=== PATIENT | female | born 1965 | race Two or more races ===

== ENCOUNTER 2019-11-29 13:34 | Inpatient (IN) | payer MEDICAID ==
[~2019-11-29] VITALS: Ht 154.9 cm; Wt 70.3 kg
--- NOTE | 2019-11-29 13:34 | NUR ---
ED Nurse Note: Patient brought into ED from home by ambulance RA 27 c/o feeling sick and generalized bodyaches for 2 weeks. patient reports she has been seen at [facility] and got discharged, but the pain is getting worse. patient is alert awake x4 ambulatory, breathing unlabored and even, speaking in full sentences.
[2019-11-29 13:40] VITALS: BP 157/66
--- NOTE | 2019-11-29 13:55 | NUR ---
ED Nurse Note: Xray at bedside.
--- NOTE | 2019-11-29 14:13 | Emergency Room Report ---
History of Present Illness General Chief Complaint: Pain Source: Patient, EMS (Slim Oneill MD) Present Illness HPI Disclaimer: Please note that this report is being documented using [employer] technology. This can lead to erroneous entry secondary to incorrect interpretation by the dictating instrument. HPI: 54-year-old female with history of hypertension hyperlipidemia presenting for evaluation of body wide pain and fatigue. Symptoms present approximately 2 weeks. She states that originally she was complaining of a pain in the right shoulder which spread to her back wrapped around her chest and then descended now into her lower abdomen and pelvis. This is been ongoing for approximately 2 weeks and appears to be migratory. She denies any nausea or vomiting fever or chills. She currently denies any chest pain or shortness of breath. She states she was admitted to [facility] last week with a discharge diagnosis of "chest pain." She presents today complaining of worsening body wide pain and fatigue. Denies any vomiting or diarrhea. She does note some burning sensation with urination and increased urination. Denies hematuria. PMH: Hypertension, hyperlipidemia PSH: Reviewed Allergies: Reviewed Social Hx: Reviewed, current smoker (Slim Oneill MD) Allergies: Coded Allergies: No Known Allergies (Unverified , 11/29/19) Patient History Now: No (Slim Oneill MD) Nursing Documentation-[facility] Past Medical History: No History, Except For Hx Hypertension: Yes (Slim Oneill MD) Review of Systems All Other Systems: negative except mentioned in HPI (Slim Oneill MD) Physical Exam Vital Signs Date Time Temp Pulse Resp B/P (MAP) Pulse Ox O2 Delivery O2 Flow Rate FiO2 11/29/19 13:23 98.6 88 16 154/90 (111) 99 Room Air General: Awake and alert, no acute distress HEENT: NC/AT. EOMI. Cardiovascular: RRR. S1 and S2 normal. No murmur appreciated Resp: Normal work of breathing. No cough, wheezing or crackles appreciated Abdomen: Abdomen is soft, nondistended. Tenderness palpation in the right lower quadrant, left lower quadrant and suprapubic region. Pain is more intense on the left side. There are no masses and no rebound. Notes significant tenderness in the upper abdomen. Skin: Intact. No abrasions, laceration or rash over the exposed skin MSK: Normal tone and bulk. Moving all extremities. No obvious deformity. Neuro: Awake and alert. Mentating appropriately. (Slim Oneill MD) Medical Decision Making Diagnostic Impression: Primary Impression: Abdominal pain Qualified Codes: R10.9 - Unspecified abdominal pain Additional Impression: Metastasis Qualified Codes: C79.9 - Secondary malignant neoplasm of unspecified site ER Course This is a 54-year-old female presenting for evaluation of generalized body aches and pains now localized in the abdomen progressing over the past 2 weeks. Differential includes but not limited to viral syndrome, rhabdomyolysis, atypical chest pain, gastritis, gastroenteritis, pancreatitis, cholecystitis, appendicitis, diverticulitis, urinary tract infection, pyelonephritis, abdominal abscess, mesenteric adenitis, ovarian pathology to name a few. She arrives stable vital signs and is afebrile. She has lower abdominal pain which may represent a urinary tract infection or diverticulitis. Will obtain a CT scan and broad labs. Will give IV fluids and analgesia. Patient be signed out to oncoming physician pending completion of work-up and reevaluation for ultimate disposition. (Slim Oneill MD) ER Course Hospital Course 54-year-old female presents with generalized pain. Abdominal pain for weeks Clinical course Patient seen and evaluated by Dr. Oneill. Please see his note for full history and physical Labs - no leukocytosis, Hb/Hct stable, LFTs elevated, UA negative CT abdomen and pelvis -evidence of a disseminated malignancy with multiple liver lesions. Lesion to right fifth rib. Lesion in the lungs. Large left lobe liver lesion possible complex cyst or liver abscess. I discussed findings with patient and family. Given antibiotics. Dr Pena consulted Case discussed with and he agreed to accept the patient to his service for further care and support I feel this is a highly complex case requiring extensive working including EKG/ Rhythm strip, Xray/CT/US, Blood/urine lab work, repeat exams while in ED, and administration of strong opiates/narcotics for pain control, admission to hospital or close patient follow up. Diagnosis - abdominal pain, metastasis Patient admitted to floor in serious condition Labs Test 11/29/19 13:45 11/29/19 14:34 White Blood Count 9.8 K/UL (4.8-10.8) Red Blood Count 4.25 M/UL (4.20-5.40) Hemoglobin 13.6 G/DL (12.0-16.0) Hematocrit 38.3 % (37.0-47.0) Mean Corpuscular Volume 90 FL (80-99) Mean Corpuscular Hemoglobin 32.0 PG (27.0-31.0) Mean Corpuscular Hemoglobin Concent 35.5 G/DL (32.0-36.0) Red Cell Distribution Width 12.9 % (11.6-14.8) Platelet Count 114 K/UL (150-450) Mean Platelet Volume 12.8 FL (6.5-10.1) Neutrophils (%) (Auto) 68.4 % (45.0-75.0) Lymphocytes (%) (Auto) 23.0 % (20.0-45.0) Monocytes (%) (Auto) 6.1 % (1.0-10.0) Eosinophils (%) (Auto) 1.7 % (0.0-3.0) Basophils (%) (Auto) 0.9 % (0.0-2.0) Sodium Level 139 MMOL/L (136-145) Potassium Level 3.9 MMOL/L (3.5-5.1) Chloride Level 102 MMOL/L (98-107) Carbon Dioxide Level 26 MMOL/L (21-32) Anion Gap 11 mmol/L (5-15) Blood Urea Nitrogen 12 mg/dL (7-18) Creatinine 0.6 MG/DL (0.55-1.30) Estimat Glomerular Filtration Rate > 60 mL/min (>60) Glucose Level 110 MG/DL (74-106) Calcium Level 9.8 MG/DL (8.5-10.1) Total Bilirubin 0.5 MG/DL (0.2-1.0) Aspartate Amino Transf (AST/SGOT) 93 U/L (15-37) Alanine Aminotransferase (ALT/SGPT) 83 U/L (12-78) Alkaline Phosphatase 391 U/L (46-116) Total Creatine Kinase 17 U/L (26-308) Troponin I 0.000 ng/mL (0.000-0.056) Pro-B-Type Natriuretic Peptide 70 pg/mL (0-125) Total Protein 8.0 G/DL (6.4-8.2) Albumin 3.1 G/DL (3.4-5.0) Globulin 4.9 g/dL Albumin/Globulin Ratio 0.6 (1.0-2.7) Urine Color Pale yellow Urine Appearance Clear Urine pH 7 (4.5-8.0) Urine Specific [place] 1.005 (1.005-1.035) Urine Protein Negative (NEGATIVE) Urine Glucose (UA) Negative (NEGATIVE) Urine Ketones Negative (NEGATIVE) Urine Blood Negative (NEGATIVE) Urine Nitrite Negative (NEGATIVE) Urine Bilirubin Negative (NEGATIVE) Urine Urobilinogen Normal MG/DL (0.0-1.0) Urine Leukocyte Esterase Negative (NEGATIVE) (Duong Resnedez MD) EKG Diagnostic Results EKG Time: 13:41 Rate: normal Rhythm: NSR ST Segments: no acute changes Other Impression Sinus rhythm, left axis deviation, normal intervals, no ST segment changes (Slim Oneill MD) Rhythm Strip Diag. Results Rhythm Strip Time: 13:41 EP Interpretation: yes Rate: 60s Rhythm: NSR, no PVC's (Slim Oneill MD) Chest X-Ray Diagnostic Results Chest X-Ray Diagnostic Results : Chest X-Ray Ordered: Yes # of Views/Limited/Complete: 1 View Indication: Chest Pain EP Interpretation: Yes Interpretation: no consolidation, no effusion, no pneumothorax Impression: No acute disease Electronically Signed by: Electronically signed by Dr. Slim Oneill (Slim Oneill MD) CT/MRI/US Diagnostic Results CT/MRI/US Diagnostic Results : Imaging Test Ordered: CT A/P Impression Evidence of disseminated malignancy with multiple liver lesions peripancreatic lesser sac and retroperitoneal necrotic lymphadenopathy. Anterior lateral expansile right fifth rib lesion. Lesions in the lungs are left certain significance but could also represent small metastatic deposit. Left lobe liver lesion probably a large necrotic metastasis given the above findings but demonstrates partial fluid attenuation and could represent a separate, process such as a complex cyst or liver abscess. Small amount of intraperitoneal fluid. Mild hepatomegaly. Cholelithiasis. Prominent pancreatic head and uncinate without discrete mass. Mild splenomegaly. Marked mild cardiomegaly. (Duong Resendez MD) Last Vital Signs Date Time Temp Pulse Resp B/P (MAP) Pulse Ox O2 Delivery O2 Flow Rate FiO2 11/29/19 13:40 98.6 66 17 157/66 97 Room Air (Slim Oneill MD) Status: improved (Duong Resendez MD) Disposition: ADMITTED INPATIENT Condition: Serious Scripts No Active Prescriptions or Reported Meds Slim Oneill MD Nov 29, 2019 14:13 Duong Resendez MD Nov 29, 2019 18:27
[2019-11-29] MEDS ORDERED: Omnipaque-300 100ml vial INJ PRN (14:15)
[2019-11-29] MEDS ORDERED: Morphine Sulfate 4mg/ml Inj (IV USE ONLY) IVP SCH (14:15)
[2019-11-29] MEDS ORDERED: Ketorolac 30mg Inj IV ONE (14:15)
[2019-11-29 14:16] LABS: ANION GAP 11 mmol/L (5-15); BLOOD UREA NITROGEN 12 mg/dL (7-18); CALCIUM 9.8 MG/DL (8.5-10.1); CARBON DIOXIDE 26 MMOL/L (21-32); CHLORIDE 102 MMOL/L (98-107); CREATININE 0.6 MG/DL (0.55-1.30); POTASSIUM 3.9 MMOL/L (3.5-5.1); SODIUM 139 MMOL/L (136-145)
[2019-11-29 14:19] LABS: BASOPHILS % (AUTO) 0.9 % (0.0-2.0); EOSINOPHILS % (AUTO) 1.7 % (0.0-3.0); HEMATOCRIT 38.3 % (37.0-47.0); HEMOGLOBIN 13.6 G/DL (12.0-16.0); MEAN CORPUSCULAR VOLUME 90 FL (80-99); MONOCYTES % (AUTO) 6.1 % (1.0-10.0); NEUTROPHILS % (AUTO) 68.4 % (45.0-75.0); PLATELET COUNT 114 K/UL (150-450); RED BLOOD COUNT 4.25 M/UL (4.20-5.40); RED CELL DISTRIBUTION WIDTH 12.9 % (11.6-14.8); WHITE BLOOD COUNT 9.8 K/UL (4.8-10.8)
[2019-11-29 14:26] LABS: ALANINE AMINOTRANSFERASE 83 U/L (12-78); ALBUMIN 3.1 G/DL (3.4-5.0); ALBUMIN/GLOBULIN RATIO 0.6 (1.0-2.7); ALKALINE PHOSPHATASE 391 U/L (46-116); ASPARTATE AMINO TRANSFERASE 93 U/L (15-37); BILIRUBIN,TOTAL 0.5 MG/DL (0.2-1.0); CREATINE KINASE 17 U/L (26-308)
[2019-11-29 14:55] LABS: APPEARANCE,URINE CLEAR; BILIRUBIN, URINE NEGATIVE (NEGATIVE); COLOR,URINE PALE YELLOW; GLUCOSE, URINE (UA) NEGATIVE (NEGATIVE); KETONES,URINE NEGATIVE (NEGATIVE); LEUKOCYTE ESTERASE ,URINE NEGATIVE (NEGATIVE); NITRITE,URINE NEGATIVE (NEGATIVE); PH,URINE 7 (4.5-8.0); PROTEIN,URINE NEGATIVE (NEGATIVE); UROBILINOGEN,URINE NORMAL MG/DL (0.0-1.0)
[2019-11-29 15:20] VITALS: BP 145/73
--- NOTE | 2019-11-29 15:27 | NUR ---
ED Nurse Note: Pt was taken for CT via wc, accompanied by a tech.
--- NOTE | 2019-11-29 15:32 | Diagnostic Imaging Report ---
Indication: Dyspnea Technique: One view of the chest Comparison: none Findings: Lungs and pleural spaces are clear. Heart size is normal. Impression: No acute process
--- NOTE | 2019-11-29 15:41 | NUR ---
ED Nurse Note: Pt came back from CT. Not in any distress.
--- NOTE | 2019-11-29 16:27 | Diagnostic Imaging Report ---
Clinical Indication: Abdominal pain Technique: No oral contrast utilized, per emergency room physician request IV administration nonionic contrast. Venous phase spiral acquisition obtained through the abdomen and pelvis. Multiplanar reconstructions were generated. Total dose length product 280 mGycm. CTDIvol(s) 5 mGy. Dose reduction achieved using automated exposure control Comparison: none Findings: There is some image degradation due to motion artifact. Patient reportedly vomited during the scan. Lack of enteric contrast limits assessment of the GI tract. No evidence of colonic diverticulosis or diverticulitis. The appendix is not definitely visualized, but no findings to suggest acute appendicitis are evident. Left upper quadrant small bowel loops are mildly dilated, gas-filled and the most proximal jejunum as well as the distal duodenum appears somewhat thick walled. However, transition point appears gradual rather than abrupt in the left upper quadrant. There is a small amount of free intraperitoneal fluid seen over the dome of the liver and within the pelvis. No free intraperitoneal gas. The distal esophagus, stomach, duodenum are unremarkable. The liver demonstrates numerous low-attenuation lesions. The largest of these is in the dome of segment 4A, is markedly irregular and measures 7 cm AP by 8 cm transverse by 5.6 cm craniocaudad. This demonstrates mostly fluid attenuation. Some portions of the central contents are than fluid attenuation, however. Innumerable other much smaller lesions are seen scattered throughout the liver. The smaller of these are too small to characterize but the larger demonstrate nonspecific soft tissue attenuation. The liver is mildly enlarged. It demonstrates equivocal slight surface nodularity. The gallbladder demonstrates tiny stones in the neck. It is mildly distended, but there is no gallbladder wall thickening or infiltration of the pericholecystic fat. The pancreas demonstrates prominence of the head and uncinate process, but no discrete pancreatic mass is evident. However, there is peripancreatic lymphadenopathy, with enlarged nodes measuring up to 2.8 cm long axis dimension and 1.4 cm short axis dimension. Enlarged nodes are also seen in the lesser sac. Many of the nodes appear low in attenuation, suggesting central necrosis. There is also periaortic and pericaval lymphadenopathy. The spleen is mildly enlarged, measuring 13.2 cm long axis dimension. The right kidney contains an upper pole cyst. The left kidney is unremarkable. No renal or ureteral calculi, hydronephrosis, or hydroureter. The uterus and adnexal structures are unremarkable. No pelvic mass or adenopathy The included lung bases demonstrate compressive atelectatic changes as well as generalized mild groundglass opacity. There is a 6 mm subpleural nodule on the right laterally, and adjacent 5 mm subpleural nodule on the right. There are also less well-demonstrated tiny nodules in the posterior and medial costophrenic sulci bilaterally. The heart is mildly enlarged. There is mild interstitial congestion The bones demonstrate an expansile lesion of the anterolateral right fifth rib. Impression: Evidence of disseminated malignancy, with multiple liver lesions, peripancreatic, lesser sac, and retroperitoneal necrotic lymphadenopathy, anterolateral expansile right fifth rib lesion. Lesion in the lungs are of less certain significance but could also represent small metastatic deposit. Etiology not definitely demonstrated 7 x 8 x 5.6 cm left lobe liver lesion, probably a large necrotic metastasis given the above findings, but demonstrates partial fluid attenuation and could represent a separate process such as a complex cyst or liver abscess Small amount of free intraperitoneal fluid Mild hepatomegaly Cholelithiasis Prominent pancreatic head and uncinate without discrete mass, significance uncertain Mild splenomegaly Mild cardiomegaly Basilar pulmonary groundglass opacity, probably an artifact of motion but mild congestion possible given the above Other findings as noted, including upper pole right renal cyst The CT scanner at [facility] is accredited by the [employer] and the scans are performed using protocols designed to limit radiation exposure to as low as reasonably achievable to attain images of sufficient resolution adequate for diagnostic evaluation.
[2019-11-29 17:15] VITALS: BP 143/74
[2019-11-29] MEDS ORDERED: Milk of Magnesia 30ml Ud ORAL PRN (18:00)
[2019-11-29] MEDS ORDERED: LORazepam 1mg tab ORAL PRN (18:00)
[2019-11-29] MEDS ORDERED: Zolpidem 5mg tab ORAL PRN (18:00)
[2019-11-29] MEDS ORDERED: Albuterol/Ipratropium 3ml neb HHN PRN (18:00)
[2019-11-29] MEDS ORDERED: Piperacillin/Tazobactam 3.375 GM in NS 110 ML IVPB ONE (18:30)
--- NOTE | 2019-11-29 18:50 | NUR ---
ED Nurse Note: Report given to Imtiaz FELIPE.
--- NOTE | 2019-11-29 18:55 | NUR ---
TRANSFER TO FLOOR: Patient transferred to [facility] via gurney. Report given to Imtiaz. Pt alert and oriented, verbally responsive. Sinus rhythm. 99% RA. Not in any distress. IV line on right Ac 20g patent and intact. On Zosyn patent and infusing well. VSS. Med recon done. No skin issues. All belongings sent with the patient. Family members aware of the transfer.
[2019-11-29 20:00] VITALS: BP 169/86
[2019-11-29] MEDS: Albuterol ud Inhalation HHN SCH (21:00)
[2019-11-29] MEDS: Docusate 100mg cap ORAL SCH (21:18)
[2019-11-29] MEDS: Enoxaparin 40mg Inj SUBQ SCH (21:20)
[2019-11-29] MEDS: Hydromorphone 0.5mg/0.5ml inj IVP PRN (21:38)
[2019-11-30] VITALS (7 sets, daily range): BP systolic 116–163; BP diastolic 64–86
--- NOTE | 2019-11-30 | NUR ---
NURSE NOTES: Admitted a 54 year old female, alert and oriented x4, not in acute respiratory distress. With abdominal pain mostly on the right upon admission. Medicated as ordered. Oriented to room. Instructed to use call light for assistance. Will continue to monitor.
[2019-11-30] MEDS: Albuterol ud Inhalation HHN SCH ×7 (01:00→23:32)
--- NOTE | 2019-11-30 07:24 | NUR ---
HAND-OFF: Report given to Quynh Chavez RN.
--- NOTE | 2019-11-30 07:35 | NUR ---
nurse notes received patient in bed, ptaient awake, alert, oriented x4, no sign of distress, IVF patent and infusing well, on fall precaution , plan of care was discussed verbalized understanding 4 P's in progress call light w/n reach, will continue to monitor patient condition lacey olivas
[2019-11-30 07:53] LABS: BASOPHILS % (AUTO) 1.1 % (0.0-2.0); EOSINOPHILS % (AUTO) 1.8 % (0.0-3.0); HEMATOCRIT 35.5 % (37.0-47.0); HEMOGLOBIN 12.5 G/DL (12.0-16.0); LYMPHOCYTES % (AUTO) 24.5 % (20.0-45.0); MEAN CORPUSCULAR VOLUME 90 FL (80-99); MONOCYTES % (AUTO) 8.7 % (1.0-10.0); NEUTROPHILS % (AUTO) 63.9 % (45.0-75.0); PLATELET COUNT 108 K/UL (150-450); RED BLOOD COUNT 3.93 M/UL (4.20-5.40); WHITE BLOOD COUNT 8.7 K/UL (4.8-10.8)
[2019-11-30 08:02] LABS: ANION GAP 8 mmol/L (5-15); BLOOD UREA NITROGEN 9 mg/dL (7-18); CALCIUM 9.6 MG/DL (8.5-10.1); CARBON DIOXIDE 26 MMOL/L (21-32); CHLORIDE 105 MMOL/L (98-107); CREATININE 0.5 MG/DL (0.55-1.30); SODIUM 139 MMOL/L (136-145)
[2019-11-30] MEDS: Docusate 100mg cap ORAL SCH ×2 (08:17→20:04)
[2019-11-30] MEDS: Hydromorphone 0.5mg/0.5ml inj IVP PRN (08:28)
[2019-11-30] MEDS ORDERED: Lidocaine 1% Plain 30 ml INJ PRN (09:49)
--- NOTE | 2019-11-30 09:55 | Consultation ---
History of Present Illness General Date patient seen: Nov 30, 2019 Reason for Hospitalization: Pain Present Illness HPI 54-year-old female with history of hypertension hyperlipidemia presenting for evaluation of body wide pain and fatigue. Symptoms present approximately 2 weeks. She states that originally she was complaining of a pain in the right shoulder which spread to her back wrapped around her chest and then descended now into her lower abdomen and pelvis. This is been ongoing for approximately 2 weeks and appears to be migratory. She denies any nausea or vomiting fever or chills. She currently denies any chest pain or shortness of breath. She states she was admitted to [facility] last week with a discharge diagnosis of "chest pain." She presents complaining of worsening body wide pain and fatigue. Denies any vomiting or diarrhea. She does note some burning sensation with urination and increased urination. Denies hematuria. Furthermore patient complaining of abdominal pain over the past few weeks as well. Patient states she is unaware of any the findings she has been informed about during hospitalization. She presents with her family. She seems to know about a cancer but denies knowing about a cancer. Defines abdominal pain as cramping 6 out of 10 epigastric pain radiating throughout the generalized abdomen no associated nausea or emesis last bowel movement a few days ago constipated Allergies: Coded Allergies: No Known Allergies (Unverified , 11/29/19) Medication History No Active Prescriptions or Reported Meds Patient History History Provided By: Patient, Family Member, Medical Record, PMD Healthcare decision maker Resuscitation status Full Code Advanced Directive on File Past Medical/Surgical History Past Medical/Surgical History: (1) Weakness (2) Liver metastasis (3) Abdominal pain (4) Metastasis Review of Systems Review of Symptoms General ROS: no weight loss or fever Psychological ROS: no depression or mood changes, no memory loss Ophthalmic ROS: no visual changes or eye irritation ENT ROS: no nasal congestion, hearing loss, dizziness Allergy and Immunology ROS: no allergic symptoms or urticaria Hematological and Lymphatic ROS: no swollen glands, unusual bleeding or bruising Endocrine ROS: no polyuria, polydipsia, weight changes, temperature intolerance Respiratory ROS: no cough, shortness of breath, or wheezing Cardiovascular ROS: no chest pain or dyspnea on exertion Gastrointestinal ROS: denies abdominal pain, bright red blood in stool. Musculoskeletal ROS: no myalgias or arthralgias Neurological ROS: no TIA or stroke symptoms Dermatological ROS: no new or changing skin lesions, rashes or pruritis Physical Exam Physical Exam General appearance: alert, cooperative, no distress, appears stated age Head: Normocephalic, without obvious abnormality, atraumatic Eyes: conjunctivae/corneas clear. PERRL, EOM's intact. Fundi benign Throat: Lips, mucosa, and tongue normal. Teeth and gums normal Neck: supple, symmetrical, trachea midline, no adenopathy, thyroid: not enlarged, symmetric, no tenderness/mass/nodules, no carotid bruit and no JVD Lungs: clear to auscultation bilaterally Heart: regular rate and rhythm, S1, S2 normal, no murmur, click, rub or gallop Abdomen: soft, non-tender. Bowel sounds decreased distended. No masses, no organomegaly Extremities: extremities normal, atraumatic, no cyanosis or edema Pulses: 2+ and symmetric Skin: Skin color, texture, turgor normal. No rashes or lesions Neurologic: Grossly normal Last 24 Hour Vital Signs Date Time Temp Pulse Resp B/P (MAP) Pulse Ox O2 Delivery O2 Flow Rate FiO2 11/30/19 09:00 Room Air 11/30/19 08:20 97.7 67 16 163/76 (105) 97 11/30/19 07:13 71 18 99 Room Air 21 60 18 97 11/30/19 04:00 97.9 61 20 138/65 (89) 97 11/30/19 03:10 69 18 100 Room Air 21 67 18 97 11/30/19 03:10 67 18 97 Room Air 21 11/30/19 00:48 Room Air 11/30/19 00:00 98.4 67 22 116/66 (83) 96 11/29/19 20:00 98.2 68 26 169/86 (113) 96 11/29/19 18:55 98.0 78 19 135/70 99 11/29/19 17:15 97.9 72 19 143/74 96 Room Air 11/29/19 15:20 97.5 72 18 145/73 99 Room Air 11/29/19 14:52 98.6 11/29/19 14:52 98.6 11/29/19 13:40 98.6 66 17 157/66 97 Room Air 11/29/19 13:23 98.6 88 16 154/90 (111) 99 Room Air Intake and Output 11/29/19 11/30/19 19:00 07:00 Intake Total 2000 ml 1200 ml Balance 2000 ml 1200 ml Intake Oral 300 ml IV Total 2000 ml 900 ml # Voids 2 3 Laboratory Tests Test 11/29/19 13:45 11/29/19 14:34 11/30/19 05:38 White Blood Count 9.8 K/UL (4.8-10.8) 8.7 K/UL (4.8-10.8) Red Blood Count 4.25 M/UL (4.20-5.40) 3.93 M/UL (4.20-5.40) L Hemoglobin 13.6 G/DL (12.0-16.0) 12.5 G/DL (12.0-16.0) Hematocrit 38.3 % (37.0-47.0) 35.5 % (37.0-47.0) L Mean Corpuscular Volume 90 FL (80-99) 90 FL (80-99) Mean Corpuscular Hemoglobin 32.0 PG (27.0-31.0) H 31.7 PG (27.0-31.0) H Mean Corpuscular Hemoglobin Concent 35.5 G/DL (32.0-36.0) 35.0 G/DL (32.0-36.0) Red Cell Distribution Width 12.9 % (11.6-14.8) 13.0 % (11.6-14.8) Platelet Count 114 K/UL (150-450) L 108 K/UL (150-450) L Mean Platelet Volume 12.8 FL (6.5-10.1) H 13.3 FL (6.5-10.1) H Neutrophils (%) (Auto) 68.4 % (45.0-75.0) 63.9 % (45.0-75.0) Lymphocytes (%) (Auto) 23.0 % (20.0-45.0) 24.5 % (20.0-45.0) Monocytes (%) (Auto) 6.1 % (1.0-10.0) 8.7 % (1.0-10.0) Eosinophils (%) (Auto) 1.7 % (0.0-3.0) 1.8 % (0.0-3.0) Basophils (%) (Auto) 0.9 % (0.0-2.0) 1.1 % (0.0-2.0) Sodium Level 139 MMOL/L (136-145) 139 MMOL/L (136-145) Potassium Level 3.9 MMOL/L (3.5-5.1) 4.0 MMOL/L (3.5-5.1) Chloride Level 102 MMOL/L (98-107) 105 MMOL/L (98-107) Carbon Dioxide Level 26 MMOL/L (21-32) 26 MMOL/L (21-32) Anion Gap 11 mmol/L (5-15) 8 mmol/L (5-15) Blood Urea Nitrogen 12 mg/dL (7-18) 9 mg/dL (7-18) Creatinine 0.6 MG/DL (0.55-1.30) 0.5 MG/DL (0.55-1.30) L Estimat Glomerular Filtration Rate > 60 mL/min (>60) > 60 mL/min (>60) Glucose Level 110 MG/DL (74-106) H 125 MG/DL (74-106) H Calcium Level 9.8 MG/DL (8.5-10.1) 9.6 MG/DL (8.5-10.1) Total Bilirubin 0.5 MG/DL (0.2-1.0) Aspartate Amino Transf (AST/SGOT) 93 U/L (15-37) H Alanine Aminotransferase (ALT/SGPT) 83 U/L (12-78) H Alkaline Phosphatase 391 U/L (46-116) H Total Creatine Kinase 17 U/L (26-308) L Troponin I 0.000 ng/mL (0.000-0.056) Pro-B-Type Natriuretic Peptide 70 pg/mL (0-125) Total Protein 8.0 G/DL (6.4-8.2) Albumin 3.1 G/DL (3.4-5.0) L Globulin 4.9 g/dL Albumin/Globulin Ratio 0.6 (1.0-2.7) L Urine Color Pale yellow Urine Appearance Clear Urine pH 7 (4.5-8.0) Urine Specific [place] 1.005 (1.005-1.035) Urine Protein Negative (NEGATIVE) Urine Glucose (UA) Negative (NEGATIVE) Urine Ketones Negative (NEGATIVE) Urine Blood Negative (NEGATIVE) Urine Nitrite Negative (NEGATIVE) Urine Bilirubin Negative (NEGATIVE) Urine Urobilinogen Normal MG/DL (0.0-1.0) Urine Leukocyte Esterase Negative (NEGATIVE) Activated Partial Thromboplast Time 28 SEC (23-33) Height (Feet): 5 Height (Inches): 1.00 Weight (Pounds): 130 Medications Current Medications Medications (Trade) Dose Ordered Sig/Deb Route PRN Reason Start Time Stop Time Status Last Admin Dose Admin Acetaminophen (Tylenol) 650 mg Q4H PRN ORAL Mild Pain (Pain Scale 1-3) 11/29/19 18:00 12/29/19 17:59 Albuterol Sulfate (Proventil) 2.5 mg Q4HRT HHN 11/30/19 03:00 12/04/19 20:59 11/30/19 07:03 Albuterol/ Ipratropium (Albuterol/ Ipratropium) 3 ml NEEDED PRN HHN Shortness of Breath 11/29/19 18:00 12/04/19 17:59 Dextrose (Dextrose 50%) 25 ml Q30M PRN IV Hypoglycemia 11/29/19 18:00 12/29/19 17:59 Dextrose (Dextrose 50%) 50 ml Q30M PRN IV Hypoglycemia 11/29/19 18:00 12/29/19 17:59 Dextrose/ Electrolytes 1,000 ml @ 100 mls/hr Q10H IV 11/29/19 20:00 12/29/19 19:59 11/30/19 08:17 Docusate Sodium (Colace) 100 mg EVERY 12 HOURS ORAL 11/29/19 21:00 12/29/19 20:59 11/30/19 08:17 Enoxaparin Sodium (Lovenox) 40 mg Q24H SUBQ 11/29/19 21:00 12/29/19 20:59 11/29/19 21:20 Hydromorphone HCl (Dilaudid) 0.5 mg Q6H PRN IVP Severe Breakthru Pain (>7) 11/29/19 18:00 12/06/19 17:59 11/30/19 08:28 Iohexol (OMNIPAQUE-300 100ml) 100 ml NOW PRN INJ Radiology Procedure 11/29/19 14:15 12/01/19 14:08 Lidocaine HCl (Xylocaine 1% 30ml) 30 ml NOW PRN INJ Radiology Procedure 11/30/19 10:00 12/02/19 09:46 UNV Lorazepam (Ativan) 1 mg Q4H PRN ORAL For Anxiety 11/29/19 18:00 12/06/19 17:59 Magnesium Hydroxide (Mom) 30 ml HSPRN PRN ORAL Constipation 11/29/19 18:00 12/29/19 17:59 Zolpidem Tartrate (Ambien) 5 mg HSPRN PRN ORAL Insomnia 11/29/19 18:00 12/06/19 17:59 Assessment/Plan Problem List: (1) Abdominal pain Assessment & Plan: Abdominal pain no nausea no vomiting constipation potential obstruction Ongoing for some time CT reviewed likely disseminated metastatic disease etiology unknown potentially GUARD IMMIGRATION Small bowel Gastrografin study ordered to ensure no complete obstruction Discussed findings with patient family at bedside discussed care plan and imaging being ordered We will follow with recommendations thank you ICD Codes: R10.9 - Unspecified abdominal pain SNOMED: 73061909 Qualifiers: Qualified Codes: R10.9 - Unspecified abdominal pain (2) Metastasis Assessment & Plan: o evidence of colonic diverticulosis or diverticulitis. The appendix is not definitely visualized, but no findings to suggest acute appendicitis are evident. Left upper quadrant small bowel loops are mildly dilated, gas-filled and the most proximal jejunum as well as the distal duodenum appears somewhat thick walled. However, transition point appears gradual rather than abrupt in the left upper quadrant. There is a small amount of free intraperitoneal fluid seen over the dome of the liver and within the pelvis. No free intraperitoneal gas. The distal esophagus, stomach, duodenum are unremarkable. The liver demonstrates numerous low-attenuation lesions. The largest of these is in the dome of segment 4A, is markedly irregular and measures 7 cm AP by 8 cm transverse by 5.6 cm craniocaudad. This demonstrates mostly fluid attenuation. Some portions of the central contents are than fluid attenuation, however. Innumerable other much smaller lesions are seen scattered throughout the liver. The smaller of these are too small to characterize but the larger demonstrate nonspecific soft tissue attenuation. The liver is mildly enlarged. It demonstrates equivocal slight surface nodularity. The gallbladder demonstrates tiny stones in the neck. It is mildly distended, but there is no gallbladder wall thickening or infiltration of the pericholecystic fat. The pancreas demonstrates prominence of the head and uncinate process, but no discrete pancreatic mass is evident. However, there is peripancreatic lymphadenopathy, with enlarged nodes measuring up to 2.8 cm long axis dimension and 1.4 cm short axis dimension. Enlarged nodes are also seen in the lesser sac. Many of the nodes appear low in attenuation, suggesting central necrosis. There is also periaortic and pericaval lymphadenopathy. The spleen is mildly enlarged, measuring 13.2 cm long axis dimension. The right kidney contains an upper pole cyst. The left kidney is unremarkable. No renal or ureteral calculi, hydronephrosis, or hydroureter. The uterus and adnexal structures are unremarkable. No pelvic mass or adenopathy The included lung bases demonstrate compressive atelectatic changes as well as generalized mild groundglass opacity. There is a 6 mm subpleural nodule on the right laterally, and adjacent 5 mm subpleural nodule on the right. There are also less well-demonstrated tiny nodules in the posterior and medial costophrenic sulci bilaterally. The heart is mildly enlarged. There is mild interstitial congestion The bones demonstrate an expansile lesion of the anterolateral right fifth rib. Impression: Evidence of disseminated malignancy, with multiple liver lesions, peripancreatic, lesser sac, and retroperitoneal necrotic lymphadenopathy, anterolateral expansile right fifth rib lesion. Lesion in the lungs are of less certain significance but could also represent small metastatic deposit. Etiology not definitely demonstrated 7 x 8 x 5.6 cm left lobe liver lesion, probably a large necrotic metastasis given the above findings, but demonstrates partial fluid attenuation and could represent a separate process such as a complex cyst or liver abscess Small amount of free intraperitoneal fluid Mild hepatomegaly Cholelithiasis Prominent pancreatic head and uncinate without discrete mass, significance uncertain Mild splenomegaly Mild cardiomegaly Basilar pulmonary groundglass opacity, probably an artifact of motion but mild congestion possible given the above ICD Codes: C79.9 - Secondary malignant neoplasm of unspecified site SNOMED: 559397362 Qualifiers: Qualified Codes: C79.9 - Secondary malignant neoplasm of unspecified site (3) Weakness ICD Codes: R53.1 - Weakness SNOMED: 91830265 (4) Liver metastasis ICD Codes: C78.7 - Secondary malignant neoplasm of liver and intrahepatic bile duct SNOMED: [id number] Hector Pena Nov 30, 2019 09:55
--- NOTE | 2019-11-30 11:46 | GI Initial Consult Note ---
History of Present Illness General Date patient seen: Nov 30, 2019 Time patient seen: 11:21 Reason for Hospitalization: Pain Referring physician: JAYESH VILLAFANA Reason for Consultation: ABDOMINAL PAIN Present Illness HPI 54-year-old female with history of hypertension hyperlipidemia presenting for evaluation of body wide pain and fatigue. Symptoms present approximately 2 weeks. She states that originally she was complaining of a pain in the right shoulder which spread to her back wrapped around her chest and then descended now into her lower abdomen and pelvis. This is been ongoing for approximately 2 weeks and appears to be migratory. She denies any nausea or vomiting fever or chills. She currently denies any chest pain or shortness of breath. She states she was admitted to [facility] last week with a discharge diagnosis of "chest pain." She presents today complaining of worsening body wide pain and fatigue. Denies any vomiting or diarrhea. She does note some burning sensation with urination and increased urination. Denies hematuria. GI consulted for abdominal pain. Pt seen, awake A&Ox4 NAD has c/o of generalized abdominal pain. Abdomen has mild distention, tenderness in all quadrants, no bloating or tympany noted. Abdominal Pelvis CT noted evidence of disseminated malignancy, with multiple liver lesions, peripancreatic, lesser sac , and retroperitoneal necrotic lymphadenopathy, anterolateral expansile right fifth rib lesion. Lesion in the lungs are of less certain significance but could also represent small metastatic deposit. Etiology not definitely demonstrated. 7 x 8 x 5.6 cm left lobe liver lesion, probably a large necrotic metastasis given the above findings, but demonstrates partial fluid attenuation and could represent a separate process such as a complex cyst or liver abscess. Patient has no history of endoscopy or colonoscopy. Denies any ETOH, IVDA or tobacco use. Home Meds No Active Prescriptions or Reported Meds Med list reviewed/reconciled: Yes Allergies: Coded Allergies: No Known Allergies (Unverified , 11/29/19) Patient History History Provided By: Patient, Medical Record PMH Narrative PMH: Hypertension, hyperlipidemia PSH: Reviewed Allergies: Reviewed Social Hx: Reviewed, current smoker Social History: Denies: smoking, alcohol use, drug use, other Review of Systems All Other Systems: negative except mentioned in HPI Physical Exam Vital Signs Date Time Temp Pulse Resp B/P (MAP) Pulse Ox O2 Delivery O2 Flow Rate FiO2 11/29/19 13:23 98.6 88 16 154/90 (111) 99 Room Air 11/30/19 03:10 21 Sp02 EP Interpretation: reviewed, normal Labs Laboratory Tests Test 11/29/19 13:45 11/29/19 14:34 11/30/19 05:38 11/30/19 05:58 White Blood Count 9.8 K/UL (4.8-10.8) 8.7 K/UL (4.8-10.8) Red Blood Count 4.25 M/UL (4.20-5.40) 3.93 M/UL (4.20-5.40) L Hemoglobin 13.6 G/DL (12.0-16.0) 12.5 G/DL (12.0-16.0) Hematocrit 38.3 % (37.0-47.0) 35.5 % (37.0-47.0) L Mean Corpuscular Volume 90 FL (80-99) 90 FL (80-99) Mean Corpuscular Hemoglobin 32.0 PG (27.0-31.0) H 31.7 PG (27.0-31.0) H Mean Corpuscular Hemoglobin Concent 35.5 G/DL (32.0-36.0) 35.0 G/DL (32.0-36.0) Red Cell Distribution Width 12.9 % (11.6-14.8) 13.0 % (11.6-14.8) Platelet Count 114 K/UL (150-450) L 108 K/UL (150-450) L Mean Platelet Volume 12.8 FL (6.5-10.1) H 13.3 FL (6.5-10.1) H Neutrophils (%) (Auto) 68.4 % (45.0-75.0) 63.9 % (45.0-75.0) Lymphocytes (%) (Auto) 23.0 % (20.0-45.0) 24.5 % (20.0-45.0) Monocytes (%) (Auto) 6.1 % (1.0-10.0) 8.7 % (1.0-10.0) Eosinophils (%) (Auto) 1.7 % (0.0-3.0) 1.8 % (0.0-3.0) Basophils (%) (Auto) 0.9 % (0.0-2.0) 1.1 % (0.0-2.0) Sodium Level 139 MMOL/L (136-145) 139 MMOL/L (136-145) Potassium Level 3.9 MMOL/L (3.5-5.1) 4.0 MMOL/L (3.5-5.1) Chloride Level 102 MMOL/L (98-107) 105 MMOL/L (98-107) Carbon Dioxide Level 26 MMOL/L (21-32) 26 MMOL/L (21-32) Anion Gap 11 mmol/L (5-15) 8 mmol/L (5-15) Blood Urea Nitrogen 12 mg/dL (7-18) 9 mg/dL (7-18) Creatinine 0.6 MG/DL (0.55-1.30) 0.5 MG/DL (0.55-1.30) L Estimat Glomerular Filtration Rate > 60 mL/min (>60) > 60 mL/min (>60) Glucose Level 110 MG/DL (74-106) H 125 MG/DL (74-106) H Calcium Level 9.8 MG/DL (8.5-10.1) 9.6 MG/DL (8.5-10.1) Total Bilirubin 0.5 MG/DL (0.2-1.0) Aspartate Amino Transf (AST/SGOT) 93 U/L (15-37) H Alanine Aminotransferase (ALT/SGPT) 83 U/L (12-78) H Alkaline Phosphatase 391 U/L (46-116) H Total Creatine Kinase 17 U/L (26-308) L Troponin I 0.000 ng/mL (0.000-0.056) Pro-B-Type Natriuretic Peptide 70 pg/mL (0-125) Total Protein 8.0 G/DL (6.4-8.2) Albumin 3.1 G/DL (3.4-5.0) L Globulin 4.9 g/dL Albumin/Globulin Ratio 0.6 (1.0-2.7) L Urine Color Pale yellow Urine Appearance Clear Urine pH 7 (4.5-8.0) Urine Specific [place] 1.005 (1.005-1.035) Urine Protein Negative (NEGATIVE) Urine Glucose (UA) Negative (NEGATIVE) Urine Ketones Negative (NEGATIVE) Urine Blood Negative (NEGATIVE) Urine Nitrite Negative (NEGATIVE) Urine Bilirubin Negative (NEGATIVE) Urine Urobilinogen Normal MG/DL (0.0-1.0) Urine Leukocyte Esterase Negative (NEGATIVE) Activated Partial Thromboplast Time 28 SEC (23-33) C-Reactive Protein, Quantitative Pending General Appearance: well appearing, no apparent distress, alert Head: normocephalic EENT: PERRL/EOMI, normal ENT inspection Neck: supple Respiratory: normal breath sounds, no respiratory distress Cardiovascular: normal rate Gastrointestinal: normal inspection, non tender, soft, normal bowel sounds, non -distended, other - abdominal tenderness in all quadrants Rectal: deferred Genitourinary: no CVA tenderness Musculoskeletal: normal inspection, back normal Neurologic: alert, oriented x3, responsive, normal inspection Psychiatric: normal inspection, judgement/insight normal, memory normal Skin: normal inspection, normal color, no rash, warm/dry, palpation normal, well hydrated Lymphatic: normal inspection, no adenopathy Current Medications Current Medications Medications (Trade) Dose Ordered Sig/Deb Route PRN Reason Start Time Stop Time Status Last Admin Dose Admin Acetaminophen (Tylenol) 650 mg Q4H PRN ORAL Mild Pain (Pain Scale 1-3) 11/29/19 18:00 12/29/19 17:59 Albuterol Sulfate (Proventil) 2.5 mg Q4HRT HHN 11/30/19 03:00 12/04/19 20:59 11/30/19 11:12 Albuterol/ Ipratropium (Albuterol/ Ipratropium) 3 ml NEEDED PRN HHN Shortness of Breath 11/29/19 18:00 12/04/19 17:59 Dextrose (Dextrose 50%) 25 ml Q30M PRN IV Hypoglycemia 11/29/19 18:00 12/29/19 17:59 Dextrose (Dextrose 50%) 50 ml Q30M PRN IV Hypoglycemia 11/29/19 18:00 12/29/19 17:59 Dextrose/ Electrolytes 1,000 ml @ 100 mls/hr Q10H IV 11/29/19 20:00 12/29/19 19:59 11/30/19 08:17 Docusate Sodium (Colace) 100 mg EVERY 12 HOURS ORAL 11/29/19 21:00 12/29/19 20:59 11/30/19 08:17 Enoxaparin Sodium (Lovenox) 40 mg Q24H SUBQ 11/29/19 21:00 12/29/19 20:59 11/29/19 21:20 Hydromorphone HCl (Dilaudid) 0.5 mg Q6H PRN IVP Severe Breakthru Pain (>7) 11/29/19 18:00 12/06/19 17:59 11/30/19 08:28 Iohexol (OMNIPAQUE-300 100ml) 100 ml NOW PRN INJ Radiology Procedure 11/29/19 14:15 12/01/19 14:08 Lidocaine HCl (Xylocaine 1% 30ml) 30 ml ONCE PRN INJ RADIOLOGY 11/30/19 09:49 11/30/19 23:59 Lorazepam (Ativan) 1 mg Q4H PRN ORAL For Anxiety 11/29/19 18:00 12/06/19 17:59 Magnesium Hydroxide (Mom) 30 ml HSPRN PRN ORAL Constipation 11/29/19 18:00 12/29/19 17:59 Zolpidem Tartrate (Ambien) 5 mg HSPRN PRN ORAL Insomnia 11/29/19 18:00 12/06/19 17:59 GI: Plan Problems: (1) Abdominal pain (2) Metastasis (3) Liver metastasis (4) Weakness Plan #Liver Mets - follow up oncology recommendations - plan for CT guided biopsy today - no plans for GI procedures - supportive care #Abdominal Pain - Pain mgmt - bowel regimen Discussed with Dr. Green. Thank you for this patient referral, we will follow. The patient was seen and examined at bedside and all new and available data was reviewed in the patients chart. I agree with the above findings, impression and plan. (Patient seen earlier today. Signature stamp does not reflect patient encounter time.). - MD Sarahi Davidson Anh-Juvenal QUOTER Nov 30, 2019 11:46
[2019-11-30] MEDS ORDERED: HYDROmorphone 1mg/ml Carpuject IVP PRN (13:00)
[2019-11-30] MEDS ORDERED: Hydromorphone 0.5mg/0.5ml inj IVP PRN (13:00)
--- NOTE | 2019-11-30 13:35 | NUR ---
nurse notes X-ray small gastrographin done, CT guided will be done deandra per CT dept, patient still NPO, DESTINEE SHIPMAN
[2019-11-30] MEDS: HYDROmorphone 1mg/ml Carpuject IVP PRN (15:35)
--- NOTE | 2019-11-30 15:39 | NUR ---
CASE MANAGEMENT:INITIAL REVIEW 54 YR OLD FEMALE BIBA FROM HOME CC;PAIN SI;ABD PAIN. LIVER METASTASIS. 98.6 88 19 157/66 96% ON RA AST 93 ALT 83 ALK PHOS 391 CXR - NO ACUTE PROCESS ABD/PELVIS US = Small amount of free intraperitoneal fluid. Mild hepatomegaly. Cholelithiasis. Mild splenomegaly. Mild cardiomegaly IS;IVF NS BOLUS TORADOL IV MORPHINE IV ADMITTED TO MED SURG MED SURG STATUS DCP;FROM HOME
--- NOTE | 2019-11-30 16:10 | Diagnostic Imaging Report ---
Indication: Abnormal CT. Abdominal distention and pain COMPARISON: None FINDINGS: Small bowel series was performed utilizing water-soluble contrast material. Serial films were obtained. Dinkey Skinner film is unremarkable. Water-soluble contrast given. By 15 minutes most of the small bowel is opacified. By 30 minutes there is contrast within the colon. IMPRESSION: Normal small bowel series. No evidence of bowel obstruction
--- NOTE | 2019-11-30 19:15 | History and Physical Report ---
DATE OF ADMISSION: 11/29/2019 TIME SEEN: At 1 p.m. ATTENDING PHYSICIAN: Trav Aragon D.O. CONSULTANTS: 1. Luis rGeen M.D. 2. Hector Pena M.D. 3. Eugene Truong M.D. CHIEF COMPLAINT: Abdominal pain. BRIEF HISTORY: This is a 54-year-old female, who lives at home, complaining of abdominal pain x2 months, getting worse. Last 3 days, no bowel movement. The patient does have history of cancer with liver mets and came in with possible obstruction. Currently, calm in bed, feeling little bit better, no complaint. REVIEW OF SYSTEMS: No chest pain. No shortness of breath. Slight nausea. No vomiting or diarrhea. PAST MEDICAL HISTORY: Includes cancer and liver mets. PAST SURGICAL HISTORY: None. ALLERGIES: Denies. MEDICATIONS: Include Dilaudid, Zofran, lidocaine, enoxaparin, Zosyn, ipratropium, Tylenol, lorazepam, zolpidem. SOCIAL HISTORY: No smoking. No alcohol. No intravenous drug abuse. FAMILY HISTORY: Noncontributory. PHYSICAL EXAMINATION: GENERAL: Calm in bed, oriented x3, in no acute distress. VITAL SIGNS: Temperature 98, pulse 68, respirations 21, blood pressure 150/80. CARDIOVASCULAR: No murmur. LUNGS: Poor air exchange. ABDOMEN: Bowel sounds distant. Soft. Slightly tender. No guarding. No rigidity. No rebound. EXTREMITIES: No cyanosis, clubbing, or edema. NEUROLOGIC: The patient moves all extremities, slightly weak. LABORATORY DATA: Labs at this time show platelets 108, otherwise CBC is normal. Creatinine 0.5, glucose 125. Troponin 0.00. Albumin 3.1. PTT 28. Urinalysis is negative. ASSESSMENT: 1. Abdominal pain. 2. Liver mets. 3. Weakness. 4. Malnutrition. 5. Possible obstruction. PLAN: 1. NPO. 2. IV fluids. 3. Pain control. 4. Resume home medications. 5. GI, Surgery, and Hematology followup. Trav Aragon D.O. DR: JUAN JOB#: [id number] CC:
--- NOTE | 2019-11-30 19:17 | Consultation ---
History of Present Illness General Chief Complaint: Pain Referring physician: JAYESH VILLAFANA Reason for Consultation: ABDOMINAL PAIN Present Illness Allergies: Coded Allergies: No Known Allergies (Unverified , 11/29/19) Medication History No Active Prescriptions or Reported Meds Patient History Healthcare decision maker Resuscitation status Full Code Advanced Directive on File Physical Exam Last 24 Hour Vital Signs Date Time Temp Pulse Resp B/P (MAP) Pulse Ox O2 Delivery O2 Flow Rate FiO2 11/30/19 18:41 64 18 99 Room Air 21 67 18 97 11/30/19 16:00 100.0 66 18 150/71 (97) 99 11/30/19 15:24 69 18 99 Room Air 21 67 18 95 11/30/19 12:07 98.5 68 21 158/80 (106) 97 11/30/19 11:22 70 18 99 Room Air 21 62 18 97 11/30/19 09:00 Room Air 11/30/19 09:00 150/64 (92) 11/30/19 08:20 97.7 67 16 163/76 (105) 97 11/30/19 07:13 71 18 99 Room Air 21 60 18 97 11/30/19 04:00 97.9 61 20 138/65 (89) 97 11/30/19 03:10 69 18 100 Room Air 21 67 18 97 11/30/19 03:10 67 18 97 Room Air 21 11/30/19 00:48 Room Air 11/30/19 00:00 98.4 67 22 116/66 (83) 96 11/29/19 20:00 98.2 68 26 169/86 (113) 96 Intake and Output 11/29/19 11/30/19 19:00 07:00 Intake Total 2000 ml 1300 ml Balance 2000 ml 1300 ml Intake Oral 300 ml IV Total 2000 ml 1000 ml # Voids 2 3 Laboratory Tests Test 11/30/19 05:38 11/30/19 05:58 White Blood Count 8.7 K/UL (4.8-10.8) Red Blood Count 3.93 M/UL (4.20-5.40) L Hemoglobin 12.5 G/DL (12.0-16.0) Hematocrit 35.5 % (37.0-47.0) L Mean Corpuscular Volume 90 FL (80-99) Mean Corpuscular Hemoglobin 31.7 PG (27.0-31.0) H Mean Corpuscular Hemoglobin Concent 35.0 G/DL (32.0-36.0) Red Cell Distribution Width 13.0 % (11.6-14.8) Platelet Count 108 K/UL (150-450) L Mean Platelet Volume 13.3 FL (6.5-10.1) H Neutrophils (%) (Auto) 63.9 % (45.0-75.0) Lymphocytes (%) (Auto) 24.5 % (20.0-45.0) Monocytes (%) (Auto) 8.7 % (1.0-10.0) Eosinophils (%) (Auto) 1.8 % (0.0-3.0) Basophils (%) (Auto) 1.1 % (0.0-2.0) Activated Partial Thromboplast Time 28 SEC (23-33) Sodium Level 139 MMOL/L (136-145) Potassium Level 4.0 MMOL/L (3.5-5.1) Chloride Level 105 MMOL/L (98-107) Carbon Dioxide Level 26 MMOL/L (21-32) Anion Gap 8 mmol/L (5-15) Blood Urea Nitrogen 9 mg/dL (7-18) Creatinine 0.5 MG/DL (0.55-1.30) L Estimat Glomerular Filtration Rate > 60 mL/min (>60) Glucose Level 125 MG/DL (74-106) H Calcium Level 9.6 MG/DL (8.5-10.1) C-Reactive Protein, Quantitative 5.7 mg/dL (0.00-0.90) H Height (Feet): 5 Height (Inches): 1.00 Weight (Pounds): 130 Medications Current Medications Medications (Trade) Dose Ordered Sig/Deb Route PRN Reason Start Time Stop Time Status Last Admin Dose Admin Acetaminophen (Tylenol) 650 mg Q4H PRN ORAL Mild Pain (Pain Scale 1-3) 11/29/19 18:00 12/29/19 17:59 Albuterol Sulfate (Proventil) 2.5 mg Q4HRT HHN 11/30/19 03:00 12/04/19 20:59 11/30/19 18:41 Albuterol/ Ipratropium (Albuterol/ Ipratropium) 3 ml NEEDED PRN HHN Shortness of Breath 11/29/19 18:00 12/04/19 17:59 Dextrose (Dextrose 50%) 25 ml Q30M PRN IV Hypoglycemia 11/29/19 18:00 12/29/19 17:59 Dextrose (Dextrose 50%) 50 ml Q30M PRN IV Hypoglycemia 11/29/19 18:00 12/29/19 17:59 Dextrose/ Electrolytes 1,000 ml @ 100 mls/hr Q10H IV 11/29/19 20:00 12/29/19 19:59 11/30/19 15:36 Docusate Sodium (Colace) 100 mg EVERY 12 HOURS ORAL 11/29/19 21:00 12/29/19 20:59 11/30/19 08:17 Enoxaparin Sodium (Lovenox) 40 mg Q24H SUBQ 11/29/19 21:00 12/29/19 20:59 11/29/19 21:20 Hydromorphone HCl (Dilaudid) 1 mg Q6H PRN IVP pain 11/30/19 14:00 12/07/19 13:59 11/30/19 15:35 Iohexol (OMNIPAQUE-300 100ml) 100 ml NOW PRN INJ Radiology Procedure 11/29/19 14:15 12/01/19 14:08 Lidocaine HCl (Xylocaine 1% 30ml) 30 ml ONCE PRN INJ RADIOLOGY 11/30/19 09:49 11/30/19 23:59 Lorazepam (Ativan) 1 mg Q4H PRN ORAL For Anxiety 11/29/19 18:00 12/06/19 17:59 Magnesium Hydroxide (Mom) 30 ml HSPRN PRN ORAL Constipation 11/29/19 18:00 12/29/19 17:59 Ondansetron HCl (Zofran) 4 mg Q4H PRN IVP Nausea & Vomiting 11/30/19 13:45 12/30/19 13:44 Zolpidem Tartrate (Ambien) 5 mg HSPRN PRN ORAL Insomnia 11/29/19 18:00 12/06/19 17:59 Assessment/Plan Assessment/Plan: Oncology Consultation Date patient seen: Nov 30, 2019 Reason for Hospitalization: Pain Referring physician: JAYESH VILLAFANA Reason for Consultation: ABDOMINAL PAIN ID 54-year-old female with history of hypertension hyperlipidemia presenting for evaluation of body wide pain and fatigue. Symptoms present approximately 2 weeks. She states that originally she was complaining of a pain in the right shoulder which spread to her back wrapped around her chest and then descended now into her lower abdomen and pelvis. This is been ongoing for approximately 2 weeks and appears to be migratory. She denies any nausea or vomiting fever or chills. She currently denies any chest pain or shortness of breath. She states she was admitted to [facility] last week with a discharge diagnosis of "chest pain." She presents today complaining of worsening body wide pain and fatigue. Denies any vomiting or diarrhea. She does note some burning sensation with urination and increased urination. Denies hematuria. GI consulted for abdominal pain. Pt seen, awake A&Ox4 NAD has c/o of generalized abdominal pain. Abdomen has mild distention, tenderness in all quadrants, no bloating or tympany noted. Abdominal Pelvis CT noted evidence of disseminated malignancy, with multiple liver lesions, peripancreatic, lesser sac , and retroperitoneal necrotic lymphadenopathy, anterolateral expansile right fifth rib lesion. Lesion in the lungs are of less certain significance but could also represent small metastatic deposit. Etiology not definitely demonstrated. 7 x 8 x 5.6 cm left lobe liver lesion, probably a large necrotic metastasis given the above findings, but demonstrates partial fluid attenuation and could represent a separate process such as a complex cyst or liver abscess. Patient has no history of endoscopy or colonoscopy. Denies any ETOH, IVDA or tobacco use. I talked today with her brother and sister and she is aware that she likely has cancer, is pending a ct guided bx. Home Meds No Active Prescriptions or Reported Meds Med list reviewed/reconciled: Yes Allergies: Coded Allergies: No Known Allergies (Unverified , 11/29/19) Patient History History Provided By: Patient, Medical Record PMH Narrative PMH: Hypertension, hyperlipidemia PSH: Reviewed Allergies: Reviewed Social Hx: Reviewed, current smoker Social History: Denies: smoking, alcohol use, drug use, other ROS (review of systems): Constitutional: No fever, no chills, no night sweats, no fatigue Skin: No rashes, lumps, itchiness, dryness HEENT: No ALY, ear ache, visual changes, double vision, nosebleeds Breasts: No lumps, pain, discharge Pulmonary: No cough, sputum, shortness of breath, coughing up blood Cardiovascular: No chest pain, tightness, palpitations, syncope, PND GI: No nausea, vomiting, diarrhea, melena, hematochezia, change in appetite, : No dysuria, frequency, urgency, urinary incontinence, foamy urine Musculoskeletal: No joint swelling or muscle pain, trauma, back pain Neurologic: No dizziness, fainting, seizures, changes in smell or taste Psychiatric: No nervousness, stress, or depression, anxiety, hallucinations Endocrine: No weight change, heat or cold intolerance, tremor, insomnia Physical Exam: Vitals: reviewed General: NAD HEENT: nc, at Neck: supple Chest: clear breath sounds bilaterally Abdomen: soft, nontender, nd Extremities: no cce, normal range of motion Neuro: alert and oriented Labs: reviewed Imaging: noted Assessment and Recs # 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 Lesion in the lungs are of less certain significance but could also represent small metastatic deposit. Etiology not definitely demonstrated 7 x 8 x 5.6 cm left lobe liver lesion, probably a large necrotic metastasis given the above findings, but demonstrates partial fluid attenuation and could represent a separate process such as a complex cyst or liver abscess --> her risk factor is smoking --> get a ct-guided biopsy of liver mass --> will need pet scan as outpatient --> DISCUSSED throroughly with son, daughter and with patient --> consent has been signed --> as per surg and gi recs --> tumor markers ordered # Anemia of chronic disease due to underlying chronic medical issues, multifactorial v Gi bleed --> Anemia workup has been ordered, rule out gi bleed --> No evidence of hemolysis is noted, peripheral smear has been reviewed. --> Hgb goal >7. Transfuse prn. --> Epogen or iron at this time is not particularly indicated --> Medications have been reviewed --> low threshold for gi evaluation in case has occult + # Thrombocytopenia - potential causes multifactorial, evaluate liver and viral etiologies to begin, also could be related to underlying medications patient has received. --> Hep panel and HIV ordered --> US abd to evaluate for cirrhosis and hsm ordered --> Peripheral smear ordered to evaluate for blasts /schistocytes --> abx and other meds have been reviewed --> ok for ppx if plt >50k w/ either heparin or lovenox # Abdominal pain --> likely related to Metastasis # Liver metastasis # Weakness # Pain management # SW consult for Med-iCAL application Appreciate consultation and dw Eugene Bautista MD Nov 30, 2019 19:17
--- NOTE | 2019-11-30 19:20 | NUR ---
HAND-OFF: Report given to DESTINEE Heller Resting comfortably in bed, no sign of distress, need met and anticipated destinee olivas.
--- NOTE | 2019-11-30 19:30 | NUR ---
NURSE NOTES: Patient in bed, no signs of respiratory distress. In mild pain but pain med not needed at this time per patient. Family at bedside. Will continue to monitor.
[2019-11-30] MEDS: Enoxaparin 40mg Inj SUBQ SCH (20:17)
[2019-12-01] VITALS (11 sets, daily range): BP systolic 107–155; BP diastolic 60–75
[2019-12-01] MEDS: HYDROmorphone 1mg/ml Carpuject IVP PRN ×2 (01:43→14:31)
[2019-12-01] MEDS: Albuterol ud Inhalation HHN SCH ×5 (03:17→20:20)
[2019-12-01 07:19] LABS: HEMATOCRIT 32.7 % (37.0-47.0); HEMOGLOBIN 11.4 G/DL (12.0-16.0); MEAN CORPUSCULAR VOLUME 92 FL (80-99); PLATELET COUNT 92 K/UL (150-450); RED BLOOD COUNT 3.57 M/UL (4.20-5.40); RED CELL DISTRIBUTION WIDTH 11.8 % (11.6-14.8); WHITE BLOOD COUNT 7.9 K/UL (4.8-10.8)
[2019-12-01 07:24] LABS: ALANINE AMINOTRANSFERASE 66 U/L (12-78); ALBUMIN 2.5 G/DL (3.4-5.0); ALBUMIN/GLOBULIN RATIO 0.6 (1.0-2.7); ALKALINE PHOSPHATASE 309 U/L (46-116); AMYLASE 12 U/L (25-115); ANION GAP 8 mmol/L (5-15); ASPARTATE AMINO TRANSFERASE 72 U/L (15-37); BILIRUBIN,TOTAL 0.5 MG/DL (0.2-1.0); BLOOD UREA NITROGEN 7 mg/dL (7-18); CALCIUM 9.5 MG/DL (8.5-10.1); CARBON DIOXIDE 27 MMOL/L (21-32); CHLORIDE 104 MMOL/L (98-107); CREATININE 0.5 MG/DL (0.55-1.30); POTASSIUM 3.9 MMOL/L (3.5-5.1); SODIUM 139 MMOL/L (136-145)
--- NOTE | 2019-12-01 08:00 | NUR ---
NURSE NOTES: Received report from Pina FELIPE. Patient is awake and oriented, no acute distress noted, IVF running per order, NPO maintained for needle biopsy today. Patient updated on plan of care. Side rails upx2, bed low and locked, call light within reach.
[2019-12-01] MEDS: Docusate 100mg cap ORAL SCH ×2 (08:56→21:25)
--- NOTE | 2019-12-01 09:36 | General Progress Note ---
Assessment/Plan Problem List: (1) Abdominal pain ICD Codes: R10.9 - Unspecified abdominal pain SNOMED: 03911212 Qualifiers: Qualified Codes: R10.9 - Unspecified abdominal pain (2) Metastasis ICD Codes: C79.9 - Secondary malignant neoplasm of unspecified site SNOMED: 944593476 Qualifiers: Qualified Codes: C79.9 - Secondary malignant neoplasm of unspecified site (3) Weakness ICD Codes: R53.1 - Weakness SNOMED: 15383211 (4) Liver metastasis ICD Codes: C78.7 - Secondary malignant neoplasm of liver and intrahepatic bile duct SNOMED: 49698494 Status: stable, progressing Assessment/Plan: gi f/u advance diet cbc bmp am dc plan if clear Subjective Constitutional: Reports: weakness Allergies: Coded Allergies: No Known Allergies (Unverified , 11/29/19) All Systems: reviewed and negative except above Subjective calm in bed Objective Last 24 Hour Vital Signs Date Time Temp Pulse Resp B/P (MAP) Pulse Ox O2 Delivery O2 Flow Rate FiO2 12/01/19 08:00 97.5 58 18 137/69 (91) 100 12/01/19 07:48 60 20 99 Room Air 21 59 20 96 12/01/19 04:00 97.8 67 20 135/71 (92) 98 12/01/19 03:17 69 18 99 Room Air 21 65 18 96 12/01/19 00:00 97.7 104 21 142/68 (92) 93 11/30/19 23:32 71 18 99 Room Air 21 72 18 98 11/30/19 21:00 Room Air 11/30/19 20:00 98.1 72 23 159/86 (110) 97 11/30/19 18:41 64 18 99 Room Air 21 67 18 97 11/30/19 16:00 100.0 66 18 150/71 (97) 99 11/30/19 15:24 69 18 99 Room Air 21 67 18 95 11/30/19 12:07 98.5 68 21 158/80 (106) 97 11/30/19 11:22 70 18 99 Room Air 21 62 18 97 Intake and Output 11/30/19 12/01/19 19:00 07:00 Intake Total 1425 ml 500 ml Balance 1425 ml 500 ml Intake Oral 500 ml IV Total 925 ml 500 ml # Voids 5 2 Laboratory Tests 11/30/19 20:00: Prothrombin Time 10.2, Prothromb Time International Ratio 1.0, Alpha Fetoprotein [Pending], Carcinoembryonic Antigen [Pending], CA 19-9 Antigen [ Pending], CA 125 Antigen [Pending], Hepatitis A IgM Antibody [Pending], Hepatitis B Surface Antigen [Pending], Hepatitis B Core IgM Antibody [Pending], Hepatitis C Antibody [Pending], HIV (1&2) Antibody Rapid Negative 12/01/19 05:45: Prothrombin Time 10.3, Prothromb Time International Ratio 1.0, White Blood Count 7.9, Red Blood Count 3.57L, Hemoglobin 11.4L, Hematocrit 32.7L, Mean Corpuscular Volume 92, Mean Corpuscular Hemoglobin 32.0H, Mean Corpuscular Hemoglobin Concent 34.9, Red Cell Distribution Width 11.8, Platelet Count 92L, Mean Platelet Volume 12.3H, Neutrophils (%) (Auto) , Lymphocytes (%) (Auto) , Monocytes (%) (Auto) , Eosinophils (%) (Auto) , Basophils (%) (Auto) , Neutrophils % (Manual) [Pending], Lymphocytes % (Manual) [Pending], Platelet Estimate [Pending], Platelet Morphology [Pending], Erythrocyte Sedimentation Rate 72H, Activated Partial Thromboplast Time 26, Sodium Level 139, Potassium Level 3.9, Chloride Level 104, Carbon Dioxide Level 27, Anion Gap 8, Blood Urea Nitrogen 7, Creatinine 0.5L, Estimat Glomerular Filtration Rate > 60, Glucose Level 118H, Calcium Level 9.5, Total Bilirubin 0.5, Aspartate Amino Transf (AST/ SGOT) 72H, Alanine Aminotransferase (ALT/SGPT) 66, Alkaline Phosphatase 309H, C- Reactive Protein, Quantitative 5.4H, Total Protein 6.9, Albumin 2.5L, Globulin 4.4, Albumin/Globulin Ratio 0.6L, Amylase Level 12L, Lipase 75 Height (Feet): 5 Height (Inches): 1.00 Weight (Pounds): 155 General Appearance: lethargic EENT: normal ENT inspection Neck: normal alignment Cardiovascular: normal peripheral pulses, normal rate, regular rhythm Respiratory/Chest: chest wall non-tender, lungs clear, normal breath sounds Abdomen: normal bowel sounds, non tender, soft Extremities: normal inspection Edema: no edema noted Arm (L), no edema noted Arm (R), no edema noted Leg (L), no edema noted Leg (R), no edema noted Pedal (L), no edema noted Pedal (R), no edema noted Generalized Neurologic: responsive, motor weakness Skin: normal pigmentation, warm/dry Trav Aragon Dec 01, 2019 09:36
--- NOTE | 2019-12-01 10:16 | GI Progress Note ---
Assessment/Plan Problems: (1) Liver metastasis ICD Codes: C78.7 - Secondary malignant neoplasm of liver and intrahepatic bile duct SNOMED: [id number] (2) Abdominal pain ICD Codes: R10.9 - Unspecified abdominal pain SNOMED: 10748005 Qualifiers: Qualified Codes: R10.9 - Unspecified abdominal pain (3) Weakness ICD Codes: R53.1 - Weakness SNOMED: 58032376 (4) Metastasis ICD Codes: C79.9 - Secondary malignant neoplasm of unspecified site SNOMED: 862527559 Qualifiers: Qualified Codes: C79.9 - Secondary malignant neoplasm of unspecified site Status: unchanged Status Narrative Discussed with Dr. Green. Assessment/Plan #Lung vs Liver Mets - follow up oncology recommendations - CT guided biopsy, will need outpatient PET scan - no plans for GI procedures - supportive care - 7 x 8 x 5.6 cm left lobe liver lesion most like large necrotic metastasis - fu tumor markers - hepatitis panel negative #Abdominal Pain 2/2 liver mets - advance diet as tolerated - Pain mgmt - bowel regimen - CT reviewed with evidence of disseminated malignancy, with multiple liver lesions, peripancreatic, lesser sac, and retroperitoneal necrotic lymphadenopathy, anterolateral expansile right fifth rib lesion. - negative SB follow through #cholelithiasis - follow up surgical recommendations - CT reviewed noted with no wall thickening or infiltration of the pericholecystic fat. The patient was seen and examined at bedside and all new and available data was reviewed in the patients chart. I agree with the above findings, impression and plan. (Patient seen earlier today. Signature stamp does not reflect patient encounter time.). - Luis Green MD Subjective Subjective abdominal pain Objective Last 24 Hour Vital Signs Date Time Temp Pulse Resp B/P (MAP) Pulse Ox O2 Delivery O2 Flow Rate FiO2 12/01/19 08:00 97.5 58 18 137/69 (91) 100 12/01/19 07:48 60 20 99 Room Air 21 59 20 96 12/01/19 04:00 97.8 67 20 135/71 (92) 98 12/01/19 03:17 69 18 99 Room Air 21 65 18 96 12/01/19 00:00 97.7 104 21 142/68 (92) 93 11/30/19 23:32 71 18 99 Room Air 21 72 18 98 11/30/19 21:00 Room Air 11/30/19 20:00 98.1 72 23 159/86 (110) 97 11/30/19 18:41 64 18 99 Room Air 21 67 18 97 11/30/19 16:00 100.0 66 18 150/71 (97) 99 11/30/19 15:24 69 18 99 Room Air 21 67 18 95 11/30/19 12:07 98.5 68 21 158/80 (106) 97 11/30/19 11:22 70 18 99 Room Air 21 62 18 97 Intake and Output 11/30/19 12/01/19 18:59 06:59 Intake Total 1425 ml 600 ml Balance 1425 ml 600 ml Intake Oral 500 ml IV Total 925 ml 600 ml # Voids 5 2 Laboratory Tests Test 11/30/19 20:00 12/01/19 05:45 Prothrombin Time 10.2 SEC (9.30-11.50) 10.3 SEC (9.30-11.50) Prothromb Time International Ratio 1.0 (0.9-1.1) 1.0 (0.9-1.1) Alpha Fetoprotein Pending Carcinoembryonic Antigen Pending CA 19-9 Antigen Pending CA 125 Antigen Pending Hepatitis A IgM Antibody Pending Hepatitis B Surface Antigen Pending Hepatitis B Core IgM Antibody Pending Hepatitis C Antibody Pending HIV (1&2) Antibody Rapid Negative (NEGATIVE) White Blood Count 7.9 K/UL (4.8-10.8) Red Blood Count 3.57 M/UL (4.20-5.40) L Hemoglobin 11.4 G/DL (12.0-16.0) L Hematocrit 32.7 % (37.0-47.0) L Mean Corpuscular Volume 92 FL (80-99) Mean Corpuscular Hemoglobin 32.0 PG (27.0-31.0) H Mean Corpuscular Hemoglobin Concent 34.9 G/DL (32.0-36.0) Red Cell Distribution Width 11.8 % (11.6-14.8) Platelet Count 92 K/UL (150-450) L Mean Platelet Volume 12.3 FL (6.5-10.1) H Neutrophils (%) (Auto) % (45.0-75.0) Lymphocytes (%) (Auto) % (20.0-45.0) Monocytes (%) (Auto) % (1.0-10.0) Eosinophils (%) (Auto) % (0.0-3.0) Basophils (%) (Auto) % (0.0-2.0) Differential Total Cells Counted 100 Neutrophils % (Manual) 68 % (45-75) Lymphocytes % (Manual) 24 % (20-45) Monocytes % (Manual) 7 % (1-10) Eosinophils % (Manual) 1 % (0-3) Basophils % (Manual) 0 % (0-2) Band Neutrophils 0 % (0-8) Platelet Estimate Decreased L Platelet Morphology Normal Erythrocyte Sedimentation Rate 72 MM/HR (0-30) H Activated Partial Thromboplast Time 26 SEC (23-33) Sodium Level 139 MMOL/L (136-145) Potassium Level 3.9 MMOL/L (3.5-5.1) Chloride Level 104 MMOL/L (98-107) Carbon Dioxide Level 27 MMOL/L (21-32) Anion Gap 8 mmol/L (5-15) Blood Urea Nitrogen 7 mg/dL (7-18) Creatinine 0.5 MG/DL (0.55-1.30) L Estimat Glomerular Filtration Rate > 60 mL/min (>60) Glucose Level 118 MG/DL (74-106) H Calcium Level 9.5 MG/DL (8.5-10.1) Total Bilirubin 0.5 MG/DL (0.2-1.0) Aspartate Amino Transf (AST/SGOT) 72 U/L (15-37) H Alanine Aminotransferase (ALT/SGPT) 66 U/L (12-78) Alkaline Phosphatase 309 U/L (46-116) H C-Reactive Protein, Quantitative 5.4 mg/dL (0.00-0.90) H Total Protein 6.9 G/DL (6.4-8.2) Albumin 2.5 G/DL (3.4-5.0) L Globulin 4.4 g/dL Albumin/Globulin Ratio 0.6 (1.0-2.7) L Amylase Level 12 U/L (25-115) L Lipase 75 U/L (73-393) Height (Feet): 5 Height (Inches): 1.00 Weight (Pounds): 155 General Appearance: WD/WN, no apparent distress, alert Cardiovascular: normal rate Respiratory/Chest: normal breath sounds, no respiratory distress Abdominal Exam: normal bowel sounds, non tender, soft Extremities: normal range of motion, non-tender Melony Mcclain NP Dec 01, 2019 10:16
[2019-12-01] MEDS ORDERED: Lidocaine 1% Plain 30 ml INJ PRN (13:30)
--- NOTE | 2019-12-01 14:03 | NUR ---
P.T Note: P.T evaluation completed. Pt received in long sitting position with family present. Pt reports c/o flank pain in the mid/upper and lower back aggravates with movement and certain position 3-05/15. Pt able to perform functional mobilities independently despite some degree of difficulties due to above c/c. Pt able to ambulate w/o AD safely and independently. Current functional status does not warrant skilled P.T service at this time. MA P.T services. Thank you for this referral.
--- NOTE | 2019-12-01 14:30 | NUR ---
NURSE NOTES: Patient returned from needle biopsy in stable condition. No bleeding noted at biopsy site. Patient reporting 10/10 pain, will medicate per order.
--- NOTE | 2019-12-01 15:22 | Diagnostic Imaging Report ---
Indication: Abnormal liver lesions. Suspected neoplasm. Procedure: Informed consent for the procedure was obtained. The risks, benefits, and alternatives to the procedure were discussed with the patient. We were given verbal and written consent to proceed. The abdomen was prepped and draped in a sterile fashion. Lidocaine was administered for local anesthesia. Dermatotomy was made. Using ultrasound guidance an 18-gauge biopsy device was advanced into the liver and a targeted 2 cm core biopsy was performed. This was done 3 times targeting one of the hypoechoic lesions in the right lobe. A very large hypodense lesion was demonstrated by CT at the dome of the right lobe of the liver. However that particular lesion is not accessible percutaneously either by CT or ultrasound. There were no complications. The patient tolerated the procedure well. Impression: Status post successful ultrasound guided, targeted biopsy of one of the smaller masses in the liver. Pathology results pending.
--- NOTE | 2019-12-01 17:20 | NUR ---
CASE MANAGEMENT:REVIEW SI;LIVER METASTASIS. 97.5 104 21 142/68 93% ON RA IS;IVF D5 @ 100 ML/HR LOVENOX SUBQ Q24 HRS PROVENTIL HHN Q4 HRT DILAUDID IV Q6 HRS PRN MED SURG STATUS DCP;FROM HOME
--- NOTE | 2019-12-01 18:20 | Hematology/Onc Progress Note ---
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 Lesion in the lungs are of less certain significance but could also represent small metastatic deposit. Etiology not definitely demonstrated 7 x 8 x 5.6 cm left lobe liver lesion, probably a large necrotic metastasis given the above findings, but demonstrates partial fluid attenuation and could represent a separate process such as a complex cyst or liver abscess --> her risk factor is smoking --> get a ct-guided biopsy of liver mass --> will need pet scan as outpatient --> DISCUSSED throroughly with son, daughter and with patient --> consent has been signed --> as per surg and gi recs --> tumor markers ordered --> us guided liver biop on 12/01 # Anemia of chronic disease due to underlying chronic medical issues, multifactorial v Gi bleed --> Anemia workup has been ordered, rule out gi bleed --> No evidence of hemolysis is noted, peripheral smear has been reviewed. --> Hgb goal >7. Transfuse prn. --> Epogen or iron at this time is not particularly indicated --> Medications have been reviewed --> hgb trend: 11.4 --> low threshold for gi evaluation in case has occult + # Thrombocytopenia - potential causes multifactorial, evaluate liver and viral etiologies to begin, also could be related to underlying medications patient has received. --> Hep panel pending and HIV negative --> ct abd positive for liver lesion and hsm --> Peripheral smear ordered to evaluate for blasts /schistocytes --> abx and other meds have been reviewed --> ok for ppx if plt >50k w/ either heparin or lovenox # Abdominal pain --> likely related to Metastasis # Liver metastasis # Weakness # Pain management # SW consult for Med-iCAL application Appreciate consultation and milly RN Subjective Allergies: Coded Allergies: No Known Allergies (Unverified , 11/29/19) Subjective 12/01: on med surg, c/o abd pain, us liver biop for today, on room air Objective Objective Current Medications Medications (Trade) Dose Ordered Sig/Deb Route PRN Reason Start Time Stop Time Status Last Admin Dose Admin Acetaminophen (Tylenol) 650 mg Q4H PRN ORAL Mild Pain (Pain Scale 1-3) 11/29/19 18:00 12/29/19 17:59 Albuterol Sulfate (Proventil) 2.5 mg Q4HRT HHN 11/30/19 03:00 12/04/19 20:59 12/01/19 15:00 Albuterol/ Ipratropium (Albuterol/ Ipratropium) 3 ml NEEDED PRN HHN Shortness of Breath 11/29/19 18:00 12/04/19 17:59 12/01/19 03:16 Dextrose (Dextrose 50%) 25 ml Q30M PRN IV Hypoglycemia 11/29/19 18:00 12/29/19 17:59 Dextrose (Dextrose 50%) 50 ml Q30M PRN IV Hypoglycemia 11/29/19 18:00 12/29/19 17:59 Dextrose/ Electrolytes 1,000 ml @ 100 mls/hr Q10H IV 11/29/19 20:00 12/29/19 19:59 12/01/19 12:24 Docusate Sodium (Colace) 100 mg EVERY 12 HOURS ORAL 11/29/19 21:00 12/29/19 20:59 11/30/19 20:04 Enoxaparin Sodium (Lovenox) 40 mg Q24H SUBQ 11/29/19 21:00 12/29/19 20:59 11/29/19 21:20 Hydromorphone HCl (Dilaudid) 1 mg Q6H PRN IVP pain 11/30/19 14:00 12/07/19 13:59 12/01/19 14:31 Lidocaine HCl (Xylocaine 1% 30ml) 30 ml ONCE PRN INJ BIOPSY 12/01/19 13:30 12/02/19 23:59 Lorazepam (Ativan) 1 mg Q4H PRN ORAL For Anxiety 11/29/19 18:00 12/06/19 17:59 12/01/19 03:53 Magnesium Hydroxide (Mom) 30 ml HSPRN PRN ORAL Constipation 11/29/19 18:00 12/29/19 17:59 Ondansetron HCl (Zofran) 4 mg Q4H PRN IVP Nausea & Vomiting 11/30/19 13:45 12/30/19 13:44 11/30/19 20:48 Zolpidem Tartrate (Ambien) 5 mg HSPRN PRN ORAL Insomnia 11/29/19 18:00 12/06/19 17:59 Last 24 Hour Vital Signs Date Time Temp Pulse Resp B/P (MAP) Pulse Ox O2 Delivery O2 Flow Rate FiO2 12/01/19 15:43 66 20 99 Room Air 21 64 20 96 12/01/19 14:00 63 16 155/70 (98) 99 12/01/19 13:55 62 16 135/60 (85) 99 12/01/19 13:50 61 16 131/64 (86) 98 12/01/19 13:07 63 16 12/01/19 11:09 69 20 99 Room Air 21 66 20 97 12/01/19 08:00 97.5 58 18 137/69 (91) 100 12/01/19 07:48 60 20 99 Room Air 21 59 20 96 12/01/19 04:00 97.8 67 20 135/71 (92) 98 12/01/19 03:17 69 18 99 Room Air 21 65 18 96 12/01/19 00:00 97.7 104 21 142/68 (92) 93 11/30/19 23:32 71 18 99 Room Air 21 72 18 98 11/30/19 21:00 Room Air 11/30/19 20:00 98.1 72 23 159/86 (110) 97 11/30/19 18:41 64 18 99 Room Air 21 67 18 97 11/30/19 16:00 100.0 66 18 150/71 (97) 99 11/30/19 15:24 69 18 99 Room Air 21 67 18 95 11/30/19 12:07 98.5 68 21 158/80 (106) 97 11/30/19 11:22 70 18 99 Room Air 21 62 18 97 11/30/19 09:00 Room Air 11/30/19 09:00 150/64 (92) 11/30/19 08:20 97.7 67 16 163/76 (105) 97 11/30/19 07:13 71 18 99 Room Air 21 60 18 97 11/30/19 04:00 97.9 61 20 138/65 (89) 97 11/30/19 03:10 69 18 100 Room Air 21 67 18 97 11/30/19 03:10 67 18 97 Room Air 21 11/30/19 00:48 Room Air 2/25/20 00:00 98.4 67 22 116/66 (83) 96 11/29/19 20:00 98.2 68 26 169/86 (113) 96 11/29/19 18:55 98.0 78 19 135/70 99 Intake and Output 11/30/19 12/01/19 19:00 07:00 Intake Total 1425 ml 500 ml Balance 1425 ml 500 ml Intake Oral 500 ml IV Total 925 ml 500 ml # Voids 5 2 Labs Test 11/29/19 13:45 11/29/19 14:34 11/30/19 05:38 11/30/19 05:58 White Blood Count 9.8 K/UL (4.8-10.8) 8.7 K/UL (4.8-10.8) Red Blood Count 4.25 M/UL (4.20-5.40) 3.93 M/UL (4.20-5.40) Hemoglobin 13.6 G/DL (12.0-16.0) 12.5 G/DL (12.0-16.0) Hematocrit 38.3 % (37.0-47.0) 35.5 % (37.0-47.0) Mean Corpuscular Volume 90 FL (80-99) 90 FL (80-99) Mean Corpuscular Hemoglobin 32.0 PG (27.0-31.0) 31.7 PG (27.0-31.0) Mean Corpuscular Hemoglobin Concent 35.5 G/DL (32.0-36.0) 35.0 G/DL (32.0-36.0) Red Cell Distribution Width 12.9 % (11.6-14.8) 13.0 % (11.6-14.8) Platelet Count 114 K/UL (150-450) 108 K/UL (150-450) Mean Platelet Volume 12.8 FL (6.5-10.1) 13.3 FL (6.5-10.1) Neutrophils (%) (Auto) 68.4 % (45.0-75.0) 63.9 % (45.0-75.0) Lymphocytes (%) (Auto) 23.0 % (20.0-45.0) 24.5 % (20.0-45.0) Monocytes (%) (Auto) 6.1 % (1.0-10.0) 8.7 % (1.0-10.0) Eosinophils (%) (Auto) 1.7 % (0.0-3.0) 1.8 % (0.0-3.0) Basophils (%) (Auto) 0.9 % (0.0-2.0) 1.1 % (0.0-2.0) Sodium Level 139 MMOL/L (136-145) 139 MMOL/L (136-145) Potassium Level 3.9 MMOL/L (3.5-5.1) 4.0 MMOL/L (3.5-5.1) Chloride Level 102 MMOL/L (98-107) 105 MMOL/L (98-107) Carbon Dioxide Level 26 MMOL/L (21-32) 26 MMOL/L (21-32) Anion Gap 11 mmol/L (5-15) 8 mmol/L (5-15) Blood Urea Nitrogen 12 mg/dL (7-18) 9 mg/dL (7-18) Creatinine 0.6 MG/DL (0.55-1.30) 0.5 MG/DL (0.55-1.30) Estimat Glomerular Filtration Rate > 60 mL/min (>60) > 60 mL/min (>60) Glucose Level 110 MG/DL (74-106) 125 MG/DL (74-106) Calcium Level 9.8 MG/DL (8.5-10.1) 9.6 MG/DL (8.5-10.1) Total Bilirubin 0.5 MG/DL (0.2-1.0) Aspartate Amino Transf (AST/SGOT) 93 U/L (15-37) Alanine Aminotransferase (ALT/SGPT) 83 U/L (12-78) Alkaline Phosphatase 391 U/L (46-116) Total Creatine Kinase 17 U/L (26-308) Troponin I 0.000 ng/mL (0.000-0.056) Pro-B-Type Natriuretic Peptide 70 pg/mL (0-125) Total Protein 8.0 G/DL (6.4-8.2) Albumin 3.1 G/DL (3.4-5.0) Globulin 4.9 g/dL Albumin/Globulin Ratio 0.6 (1.0-2.7) Urine Color Pale yellow Urine Appearance Clear Urine pH 7 (4.5-8.0) Urine Specific Avant 1.005 (1.005-1.035) Urine Protein Negative (NEGATIVE) Urine Glucose (UA) Negative (NEGATIVE) Urine Ketones Negative (NEGATIVE) Urine Blood Negative (NEGATIVE) Urine Nitrite Negative (NEGATIVE) Urine Bilirubin Negative (NEGATIVE) Urine Urobilinogen Normal MG/DL (0.0-1.0) Urine Leukocyte Esterase Negative (NEGATIVE) Activated Partial Thromboplast Time 28 SEC (23-33) C-Reactive Protein, Quantitative 5.7 mg/dL (0.00-0.90) Test 11/30/19 20:00 12/01/19 05:45 Prothrombin Time 10.2 SEC (9.30-11.50) 10.3 SEC (9.30-11.50) Prothromb Time International Ratio 1.0 (0.9-1.1) 1.0 (0.9-1.1) HIV (1&2) Antibody Rapid Negative (NEGATIVE) White Blood Count 7.9 K/UL (4.8-10.8) Red Blood Count 3.57 M/UL (4.20-5.40) Hemoglobin 11.4 G/DL (12.0-16.0) Hematocrit 32.7 % (37.0-47.0) Mean Corpuscular Volume 92 FL (80-99) Mean Corpuscular Hemoglobin 32.0 PG (27.0-31.0) Mean Corpuscular Hemoglobin Concent 34.9 G/DL (32.0-36.0) Red Cell Distribution Width 11.8 % (11.6-14.8) Platelet Count 92 K/UL (150-450) Mean Platelet Volume 12.3 FL (6.5-10.1) Neutrophils (%) (Auto) % (45.0-75.0) Lymphocytes (%) (Auto) % (20.0-45.0) Monocytes (%) (Auto) % (1.0-10.0) Eosinophils (%) (Auto) % (0.0-3.0) Basophils (%) (Auto) % (0.0-2.0) Differential Total Cells Counted 100 Neutrophils % (Manual) 68 % (45-75) Lymphocytes % (Manual) 24 % (20-45) Monocytes % (Manual) 7 % (1-10) Eosinophils % (Manual) 1 % (0-3) Basophils % (Manual) 0 % (0-2) Band Neutrophils 0 % (0-8) Platelet Estimate Decreased Platelet Morphology Normal Erythrocyte Sedimentation Rate 72 MM/HR (0-30) Activated Partial Thromboplast Time 26 SEC (23-33) Sodium Level 139 MMOL/L (136-145) Potassium Level 3.9 MMOL/L (3.5-5.1) Chloride Level 104 MMOL/L (98-107) Carbon Dioxide Level 27 MMOL/L (21-32) Anion Gap 8 mmol/L (5-15) Blood Urea Nitrogen 7 mg/dL (7-18) Creatinine 0.5 MG/DL (0.55-1.30) Estimat Glomerular Filtration Rate > 60 mL/min (>60) Glucose Level 118 MG/DL (74-106) Calcium Level 9.5 MG/DL (8.5-10.1) Total Bilirubin 0.5 MG/DL (0.2-1.0) Aspartate Amino Transf (AST/SGOT) 72 U/L (15-37) Alanine Aminotransferase (ALT/SGPT) 66 U/L (12-78) Alkaline Phosphatase 309 U/L (46-116) C-Reactive Protein, Quantitative 5.4 mg/dL (0.00-0.90) Total Protein 6.9 G/DL (6.4-8.2) Albumin 2.5 G/DL (3.4-5.0) Globulin 4.4 g/dL Albumin/Globulin Ratio 0.6 (1.0-2.7) Amylase Level 12 U/L (25-115) Lipase 75 U/L (73-393) Height (Feet): 5 Height (Inches): 1.00 Weight (Pounds): 155 Objective Physical Exam: Vitals: reviewed General: NAD HEENT: nc, at Neck: supple Chest: clear breath sounds bilaterally Abdomen: soft, nontender, nd Extremities: no cce, normal range of motion Neuro: alert and oriented Eugene Truong MD Dec 01, 2019 18:20
--- NOTE | 2019-12-01 19:28 | NUR ---
HAND-OFF: Report given to Lizbeth FELIPE.
--- NOTE | 2019-12-01 19:30 | NUR ---
NURSE NOTES: Patient is awake and alert x4. On room air with no signs of distress or SOB. IV intact and running IVF as ordered. Family at bedside. Bed locked and in lowest position. Call light in easy reach. Will continue to monitor.
--- NOTE | 2019-12-01 19:54 | Surgery Progress Note ---
Surgery Progress Note Subjective Symptoms: improved, pain absent, passing flatus, BM Additional Comments contrast study negative liver bx today done Objective Last 24 Hour Vital Signs Date Time Temp Pulse Resp B/P (MAP) Pulse Ox O2 Delivery O2 Flow Rate FiO2 12/01/19 16:00 98.1 66 16 150/75 (100) 95 12/01/19 15:43 66 20 99 Room Air 21 64 20 96 12/01/19 14:00 63 16 155/70 (98) 99 12/01/19 13:55 62 16 135/60 (85) 99 12/01/19 13:50 61 16 131/64 (86) 98 12/01/19 13:07 63 16 12/01/19 12:00 97.8 65 18 107/70 (82) 98 12/01/19 11:09 69 20 99 Room Air 21 66 20 97 12/01/19 09:00 Room Air 12/01/19 08:00 97.5 58 18 137/69 (91) 100 12/01/19 07:48 60 20 99 Room Air 21 59 20 96 12/01/19 04:00 97.8 67 20 135/71 (92) 98 12/01/19 03:17 69 18 99 Room Air 21 65 18 96 12/01/19 00:00 97.7 104 21 142/68 (92) 93 11/30/19 23:32 71 18 99 Room Air 21 72 18 98 11/30/19 21:00 Room Air 11/30/19 20:00 98.1 72 23 159/86 (110) 97 I&O Intake and Output 11/30/19 12/01/19 19:00 07:00 Intake Total 1425 ml 500 ml Balance 1425 ml 500 ml Intake Oral 500 ml IV Total 925 ml 500 ml # Voids 5 2 Cardiovascular: RSR Respiratory: clear Abdomen: soft, flat, non-tender, present bowel sounds Extremities: no cyanosis Laboratory Tests Test 11/30/19 20:00 12/01/19 05:45 Prothrombin Time 10.2 SEC (9.30-11.50) 10.3 SEC (9.30-11.50) Prothromb Time International Ratio 1.0 (0.9-1.1) 1.0 (0.9-1.1) Alpha Fetoprotein Pending Carcinoembryonic Antigen Pending CA 19-9 Antigen Pending CA 125 Antigen Pending Hepatitis A IgM Antibody Pending Hepatitis B Surface Antigen Pending Hepatitis B Core IgM Antibody Pending Hepatitis C Antibody Pending HIV (1&2) Antibody Rapid Negative (NEGATIVE) White Blood Count 7.9 K/UL (4.8-10.8) Red Blood Count 3.57 M/UL (4.20-5.40) L Hemoglobin 11.4 G/DL (12.0-16.0) L Hematocrit 32.7 % (37.0-47.0) L Mean Corpuscular Volume 92 FL (80-99) Mean Corpuscular Hemoglobin 32.0 PG (27.0-31.0) H Mean Corpuscular Hemoglobin Concent 34.9 G/DL (32.0-36.0) Red Cell Distribution Width 11.8 % (11.6-14.8) Platelet Count 92 K/UL (150-450) L Mean Platelet Volume 12.3 FL (6.5-10.1) H Neutrophils (%) (Auto) % (45.0-75.0) Lymphocytes (%) (Auto) % (20.0-45.0) Monocytes (%) (Auto) % (1.0-10.0) Eosinophils (%) (Auto) % (0.0-3.0) Basophils (%) (Auto) % (0.0-2.0) Differential Total Cells Counted 100 Neutrophils % (Manual) 68 % (45-75) Lymphocytes % (Manual) 24 % (20-45) Monocytes % (Manual) 7 % (1-10) Eosinophils % (Manual) 1 % (0-3) Basophils % (Manual) 0 % (0-2) Band Neutrophils 0 % (0-8) Platelet Estimate Decreased L Platelet Morphology Normal Erythrocyte Sedimentation Rate 72 MM/HR (0-30) H Activated Partial Thromboplast Time 26 SEC (23-33) Sodium Level 139 MMOL/L (136-145) Potassium Level 3.9 MMOL/L (3.5-5.1) Chloride Level 104 MMOL/L (98-107) Carbon Dioxide Level 27 MMOL/L (21-32) Anion Gap 8 mmol/L (5-15) Blood Urea Nitrogen 7 mg/dL (7-18) Creatinine 0.5 MG/DL (0.55-1.30) L Estimat Glomerular Filtration Rate > 60 mL/min (>60) Glucose Level 118 MG/DL (74-106) H Calcium Level 9.5 MG/DL (8.5-10.1) Total Bilirubin 0.5 MG/DL (0.2-1.0) Aspartate Amino Transf (AST/SGOT) 72 U/L (15-37) H Alanine Aminotransferase (ALT/SGPT) 66 U/L (12-78) Alkaline Phosphatase 309 U/L (46-116) H C-Reactive Protein, Quantitative 5.4 mg/dL (0.00-0.90) H Total Protein 6.9 G/DL (6.4-8.2) Albumin 2.5 G/DL (3.4-5.0) L Globulin 4.4 g/dL Albumin/Globulin Ratio 0.6 (1.0-2.7) L Amylase Level 12 U/L (25-115) L Lipase 75 U/L (73-393) Plan Problems: (1) Abdominal pain Assessment & Plan: Abdominal pain no nausea no vomiting constipation potential obstruction Ongoing for some time CT reviewed likely disseminated metastatic disease etiology unknown potentially UNDERGRADUATE ADVISOR Small bowel Gastrografin study ordered to ensure no complete obstruction - bowel okay no obstruction diet us bx liver pending path Discussed findings with patient family at bedside discussed care plan and imaging being ordered We will follow with recommendations thank you (2) Metastasis Assessment & Plan: o evidence of colonic diverticulosis or diverticulitis. The appendix is not definitely visualized, but no findings to suggest acute appendicitis are evident. Left upper quadrant small bowel loops are mildly dilated, gas-filled and the most proximal jejunum as well as the distal duodenum appears somewhat thick walled. However, transition point appears gradual rather than abrupt in the left upper quadrant. There is a small amount of free intraperitoneal fluid seen over the dome of the liver and within the pelvis. No free intraperitoneal gas. The distal esophagus, stomach, duodenum are unremarkable. The liver demonstrates numerous low-attenuation lesions. The largest of these is in the dome of segment 4A, is markedly irregular and measures 7 cm AP by 8 cm transverse by 5.6 cm craniocaudad. This demonstrates mostly fluid attenuation. Some portions of the central contents are than fluid attenuation, however. Innumerable other much smaller lesions are seen scattered throughout the liver. The smaller of these are too small to characterize but the larger demonstrate nonspecific soft tissue attenuation. The liver is mildly enlarged. It demonstrates equivocal slight surface nodularity. The gallbladder demonstrates tiny stones in the neck. It is mildly distended, but there is no gallbladder wall thickening or infiltration of the pericholecystic fat. The pancreas demonstrates prominence of the head and uncinate process, but no discrete pancreatic mass is evident. However, there is peripancreatic lymphadenopathy, with enlarged nodes measuring up to 2.8 cm long axis dimension and 1.4 cm short axis dimension. Enlarged nodes are also seen in the lesser sac. Many of the nodes appear low in attenuation, suggesting central necrosis. There is also periaortic and pericaval lymphadenopathy. The spleen is mildly enlarged, measuring 13.2 cm long axis dimension. The right kidney contains an upper pole cyst. The left kidney is unremarkable. No renal or ureteral calculi, hydronephrosis, or hydroureter. The uterus and adnexal structures are unremarkable. No pelvic mass or adenopathy The included lung bases demonstrate compressive atelectatic changes as well as generalized mild groundglass opacity. There is a 6 mm subpleural nodule on the right laterally, and adjacent 5 mm subpleural nodule on the right. There are also less well-demonstrated tiny nodules in the posterior and medial costophrenic sulci bilaterally. The heart is mildly enlarged. There is mild interstitial congestion The bones demonstrate an expansile lesion of the anterolateral right fifth rib. Impression: Evidence of disseminated malignancy, with multiple liver lesions, peripancreatic, lesser sac, and retroperitoneal necrotic lymphadenopathy, anterolateral expansile right fifth rib lesion. Lesion in the lungs are of less certain significance but could also represent small metastatic deposit. Etiology not definitely demonstrated 7 x 8 x 5.6 cm left lobe liver lesion, probably a large necrotic metastasis given the above findings, but demonstrates partial fluid attenuation and could represent a separate process such as a complex cyst or liver abscess Small amount of free intraperitoneal fluid Mild hepatomegaly Cholelithiasis Prominent pancreatic head and uncinate without discrete mass, significance uncertain Mild splenomegaly Mild cardiomegaly Basilar pulmonary groundglass opacity, probably an artifact of motion but mild congestion possible given the above (3) Weakness (4) Liver metastasis Hector Pena Dec 01, 2019 19:54
[2019-12-01] MEDS: Enoxaparin 40mg Inj SUBQ SCH (20:42)
[2019-12-02] MEDS: Albuterol ud Inhalation HHN SCH ×5 (00:02→14:35)
[2019-12-02] MEDS: HYDROmorphone 1mg/ml Carpuject IVP PRN ×2 (03:21→11:23)
[2019-12-02 03:54] VITALS: BP 147/78
[2019-12-02 05:39] LABS: BASOPHILS % (AUTO) 1.1 % (0.0-2.0); EOSINOPHILS % (AUTO) 1.8 % (0.0-3.0); HEMATOCRIT 34.4 % (37.0-47.0); HEMOGLOBIN 11.9 G/DL (12.0-16.0); LYMPHOCYTES % (AUTO) 21.6 % (20.0-45.0); MEAN CORPUSCULAR VOLUME 91 FL (80-99); MONOCYTES % (AUTO) 8.7 % (1.0-10.0); NEUTROPHILS % (AUTO) 66.9 % (45.0-75.0); PLATELET COUNT 117 K/UL (150-450); RED BLOOD COUNT 3.78 M/UL (4.20-5.40); RED CELL DISTRIBUTION WIDTH 11.4 % (11.6-14.8); WHITE BLOOD COUNT 8.4 K/UL (4.8-10.8)
[2019-12-02 05:56] LABS: ANION GAP 8 mmol/L (5-15); BLOOD UREA NITROGEN 9 mg/dL (7-18); CALCIUM 9.5 MG/DL (8.5-10.1); CARBON DIOXIDE 27 MMOL/L (21-32); CHLORIDE 105 MMOL/L (98-107); CREATININE 0.5 MG/DL (0.55-1.30); POTASSIUM 3.9 MMOL/L (3.5-5.1); SODIUM 140 MMOL/L (136-145)
--- NOTE | 2019-12-02 07:13 | NUR ---
HAND-OFF: Report given to DESTINEE Hanson.
[2019-12-02 08:00] VITALS: BP 165/77
--- NOTE | 2019-12-02 08:01 | NUR ---
NURSE NOTES: patient in bed, and awake. respiration is even and unlabored. Denies any pain and discomfort noted at this time. No grimace for diaz noted. Left hand 24 g IV site is in-place; no swelling, redness and tenderness noted. No acute distress noted on patient at this time. call light is within reach. will continue to follow plan of care. Addendum: 12/02/19 at 0805 by Brent Jeffries RN patient in bed, and awake. respiration is even and unlabored. Denies any pain and discomfort noted at this time. No grimace for pain noted. Left hand 24 g IV site is in-place; no swelling, redness and tenderness noted. No acute distress noted on patient at this time. call light is within reach. will continue to follow plan of care.
[2019-12-02] MEDS: Docusate 100mg cap ORAL SCH (08:20)
--- NOTE | 2019-12-02 11:02 | GI Progress Note ---
Assessment/Plan Problems: (1) Liver metastasis ICD Codes: C78.7 - Secondary malignant neoplasm of liver and intrahepatic bile duct SNOMED: 40783370 (2) Abdominal pain ICD Codes: R10.9 - Unspecified abdominal pain SNOMED: 00749088 Qualifiers: Qualified Codes: R10.9 - Unspecified abdominal pain (3) Weakness ICD Codes: R53.1 - Weakness SNOMED: 25233135 (4) Metastasis ICD Codes: C79.9 - Secondary malignant neoplasm of unspecified site SNOMED: 781601746 Qualifiers: Qualified Codes: C79.9 - Secondary malignant neoplasm of unspecified site Status: unchanged Status Narrative Discussed with Dr. Green. Assessment/Plan #Lung vs Liver Mets - follow up oncology recommendations - CT guided biopsy, will need outpatient PET scan - no plans for GI procedures - supportive care - 7 x 8 x 5.6 cm left lobe liver lesion most like large necrotic metastasis - fu tumor markers >> pending - hepatitis panel negative #Abdominal Pain 2/2 liver v lung mets - advance diet as tolerated - Pain mgmt - bowel regimen - CT reviewed with evidence of disseminated malignancy, with multiple liver lesions, peripancreatic, lesser sac, and retroperitoneal necrotic lymphadenopathy, anterolateral expansile right fifth rib lesion. - negative SB follow through - Okay for DC per GI standpoint #cholelithiasis - follow up surgical recommendations - CT reviewed noted with no wall thickening or infiltration of the pericholecystic fat. The patient was seen and examined at bedside and all new and available data was reviewed in the patients chart. I agree with the above findings, impression and plan. (Patient seen earlier today. Signature stamp does not reflect patient encounter time.). - Luis Green MD Subjective Gastrointestinal/Abdominal: Reports: no symptoms Subjective abdominal pain Objective Last 24 Hour Vital Signs Date Time Temp Pulse Resp B/P (MAP) Pulse Ox O2 Delivery O2 Flow Rate FiO2 12/02/19 10:32 67 16 100 Room Air 21 60 16 96 12/02/19 08:00 98.0 67 20 165/77 (106) 96 12/02/19 06:57 87 18 100 Room Air 21 80 18 97 12/02/19 06:15 Room Air 12/02/19 03:54 98.4 66 18 147/78 (101) 97 12/02/19 03:13 67 20 100 Room Air 21 63 20 96 12/02/19 00:02 91 20 99 Room Air 21 60 20 96 12/01/19 23:56 98.2 65 18 136/71 (92) 98 12/01/19 20:35 Room Air 12/01/19 20:20 63 20 99 Room Air 21 60 20 95 12/01/19 20:00 97.5 58 20 137/69 (91) 100 12/01/19 16:00 98.1 66 16 150/75 (100) 95 12/01/19 15:43 66 20 99 Room Air 21 64 20 96 12/01/19 14:00 63 16 155/70 (98) 99 12/01/19 13:55 62 16 135/60 (85) 99 12/01/19 13:50 61 16 131/64 (86) 98 12/01/19 13:07 63 16 12/01/19 12:00 97.8 65 18 107/70 (82) 98 12/01/19 11:09 69 20 99 Room Air 21 66 20 97 Intake and Output 12/01/19 12/02/19 19:00 07:00 Intake Total 360 ml Balance 360 ml Intake Oral 360 ml # Voids 3 2 # Bowel Movements 6 Laboratory Tests Test 12/02/19 04:55 White Blood Count 8.4 K/UL (4.8-10.8) Red Blood Count 3.78 M/UL (4.20-5.40) L Hemoglobin 11.9 G/DL (12.0-16.0) L Hematocrit 34.4 % (37.0-47.0) L Mean Corpuscular Volume 91 FL (80-99) Mean Corpuscular Hemoglobin 31.5 PG (27.0-31.0) H Mean Corpuscular Hemoglobin Concent 34.6 G/DL (32.0-36.0) Red Cell Distribution Width 11.4 % (11.6-14.8) L Platelet Count 117 K/UL (150-450) L Mean Platelet Volume 12.7 FL (6.5-10.1) H Neutrophils (%) (Auto) 66.9 % (45.0-75.0) Lymphocytes (%) (Auto) 21.6 % (20.0-45.0) Monocytes (%) (Auto) 8.7 % (1.0-10.0) Eosinophils (%) (Auto) 1.8 % (0.0-3.0) Basophils (%) (Auto) 1.1 % (0.0-2.0) Sodium Level 140 MMOL/L (136-145) Potassium Level 3.9 MMOL/L (3.5-5.1) Chloride Level 105 MMOL/L (98-107) Carbon Dioxide Level 27 MMOL/L (21-32) Anion Gap 8 mmol/L (5-15) Blood Urea Nitrogen 9 mg/dL (7-18) Creatinine 0.5 MG/DL (0.55-1.30) L Estimat Glomerular Filtration Rate > 60 mL/min (>60) Glucose Level 113 MG/DL (74-106) H Calcium Level 9.5 MG/DL (8.5-10.1) Height (Feet): 5 Height (Inches): 1.00 Weight (Pounds): 155 General Appearance: WD/WN, no apparent distress, alert Cardiovascular: normal rate Respiratory/Chest: normal breath sounds, no respiratory distress Abdominal Exam: normal bowel sounds, non tender, soft Extremities: normal range of motion, non-tender Melony Mcclain NP Dec 02, 2019 11:02
--- NOTE | 2019-12-02 11:50 | Surgery Progress Note ---
Surgery Progress Note Subjective Additional Comments stable comfortable labs tolerating diet passing flatus mild pain from biopsy site Objective Last 24 Hour Vital Signs Date Time Temp Pulse Resp B/P (MAP) Pulse Ox O2 Delivery O2 Flow Rate FiO2 12/02/19 10:32 67 16 100 Room Air 21 60 16 96 12/02/19 08:00 98.0 67 20 165/77 (106) 96 12/02/19 06:57 87 18 100 Room Air 21 80 18 97 12/02/19 06:15 Room Air 12/02/19 03:54 98.4 66 18 147/78 (101) 97 12/02/19 03:13 67 20 100 Room Air 21 63 20 96 12/02/19 00:02 91 20 99 Room Air 21 60 20 96 12/01/19 23:56 98.2 65 18 136/71 (92) 98 12/01/19 20:35 Room Air 12/01/19 20:20 63 20 99 Room Air 21 60 20 95 12/01/19 20:00 97.5 58 20 137/69 (91) 100 12/01/19 16:00 98.1 66 16 150/75 (100) 95 12/01/19 15:43 66 20 99 Room Air 21 64 20 96 12/01/19 14:00 63 16 155/70 (98) 99 12/01/19 13:55 62 16 135/60 (85) 99 12/01/19 13:50 61 16 131/64 (86) 98 12/01/19 13:07 63 16 12/01/19 12:00 97.8 65 18 107/70 (82) 98 I&O Intake and Output 12/01/19 12/02/19 19:00 07:00 Intake Total 360 ml Balance 360 ml Intake Oral 360 ml # Voids 3 2 # Bowel Movements 6 Dressing: dry Wound: clean Cardiovascular: RSR Respiratory: clear Abdomen: soft, non-tender, present bowel sounds Extremities: no edema, no tenderness, no cyanosis Laboratory Tests Test 12/02/19 04:55 White Blood Count 8.4 K/UL (4.8-10.8) Red Blood Count 3.78 M/UL (4.20-5.40) L Hemoglobin 11.9 G/DL (12.0-16.0) L Hematocrit 34.4 % (37.0-47.0) L Mean Corpuscular Volume 91 FL (80-99) Mean Corpuscular Hemoglobin 31.5 PG (27.0-31.0) H Mean Corpuscular Hemoglobin Concent 34.6 G/DL (32.0-36.0) Red Cell Distribution Width 11.4 % (11.6-14.8) L Platelet Count 117 K/UL (150-450) L Mean Platelet Volume 12.7 FL (6.5-10.1) H Neutrophils (%) (Auto) 66.9 % (45.0-75.0) Lymphocytes (%) (Auto) 21.6 % (20.0-45.0) Monocytes (%) (Auto) 8.7 % (1.0-10.0) Eosinophils (%) (Auto) 1.8 % (0.0-3.0) Basophils (%) (Auto) 1.1 % (0.0-2.0) Sodium Level 140 MMOL/L (136-145) Potassium Level 3.9 MMOL/L (3.5-5.1) Chloride Level 105 MMOL/L (98-107) Carbon Dioxide Level 27 MMOL/L (21-32) Anion Gap 8 mmol/L (5-15) Blood Urea Nitrogen 9 mg/dL (7-18) Creatinine 0.5 MG/DL (0.55-1.30) L Estimat Glomerular Filtration Rate > 60 mL/min (>60) Glucose Level 113 MG/DL (74-106) H Calcium Level 9.5 MG/DL (8.5-10.1) Plan Problems: (1) Abdominal pain Assessment & Plan: Abdominal pain no nausea no vomiting constipation potential obstruction Ongoing for some time CT reviewed likely disseminated metastatic disease etiology unknown potentially [employer] Small bowel Gastrografin study ordered to ensure no complete obstruction - bowel okay no obstruction diet us bx liver pending path Discussed findings with patient family at bedside discussed care plan and imaging being ordered We will follow with recommendations thank you (2) Metastasis Assessment & Plan: o evidence of colonic diverticulosis or diverticulitis. The appendix is not definitely visualized, but no findings to suggest acute appendicitis are evident. Left upper quadrant small bowel loops are mildly dilated, gas-filled and the most proximal jejunum as well as the distal duodenum appears somewhat thick walled. However, transition point appears gradual rather than abrupt in the left upper quadrant. There is a small amount of free intraperitoneal fluid seen over the dome of the liver and within the pelvis. No free intraperitoneal gas. The distal esophagus, stomach, duodenum are unremarkable. The liver demonstrates numerous low-attenuation lesions. The largest of these is in the dome of segment 4A, is markedly irregular and measures 7 cm AP by 8 cm transverse by 5.6 cm craniocaudad. This demonstrates mostly fluid attenuation. Some portions of the central contents are than fluid attenuation, however. Innumerable other much smaller lesions are seen scattered throughout the liver. The smaller of these are too small to characterize but the larger demonstrate nonspecific soft tissue attenuation. The liver is mildly enlarged. It demonstrates equivocal slight surface nodularity. The gallbladder demonstrates tiny stones in the neck. It is mildly distended, but there is no gallbladder wall thickening or infiltration of the pericholecystic fat. The pancreas demonstrates prominence of the head and uncinate process, but no discrete pancreatic mass is evident. However, there is peripancreatic lymphadenopathy, with enlarged nodes measuring up to 2.8 cm long axis dimension and 1.4 cm short axis dimension. Enlarged nodes are also seen in the lesser sac. Many of the nodes appear low in attenuation, suggesting central necrosis. There is also periaortic and pericaval lymphadenopathy. The spleen is mildly enlarged, measuring 13.2 cm long axis dimension. The right kidney contains an upper pole cyst. The left kidney is unremarkable. No renal or ureteral calculi, hydronephrosis, or hydroureter. The uterus and adnexal structures are unremarkable. No pelvic mass or adenopathy The included lung bases demonstrate compressive atelectatic changes as well as generalized mild groundglass opacity. There is a 6 mm subpleural nodule on the right laterally, and adjacent 5 mm subpleural nodule on the right. There are also less well-demonstrated tiny nodules in the posterior and medial costophrenic sulci bilaterally. The heart is mildly enlarged. There is mild interstitial congestion The bones demonstrate an expansile lesion of the anterolateral right fifth rib. Impression: Evidence of disseminated malignancy, with multiple liver lesions, peripancreatic, lesser sac, and retroperitoneal necrotic lymphadenopathy, anterolateral expansile right fifth rib lesion. Lesion in the lungs are of less certain significance but could also represent small metastatic deposit. Etiology not definitely demonstrated 7 x 8 x 5.6 cm left lobe liver lesion, probably a large necrotic metastasis given the above findings, but demonstrates partial fluid attenuation and could represent a separate process such as a complex cyst or liver abscess Small amount of free intraperitoneal fluid Mild hepatomegaly Cholelithiasis Prominent pancreatic head and uncinate without discrete mass, significance uncertain Mild splenomegaly Mild cardiomegaly Basilar pulmonary groundglass opacity, probably an artifact of motion but mild congestion possible given the above (3) Weakness (4) Liver metastasis Hector Pena Dec 02, 2019 11:50
--- NOTE | 2019-12-02 11:54 | NUR ---
NURSE NOTES: patient was cleared for discharging by GI and oncology. notified DR. Aragon and will see the patient soon for discharging. order noted and carried out.
[2019-12-02 12:00] VITALS: BP 172/83
--- NOTE | 2019-12-02 13:12 | Hematology/Onc Progress Note ---
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 Lesion in the lungs are of less certain significance but could also represent small metastatic deposit. Etiology not definitely demonstrated 7 x 8 x 5.6 cm left lobe liver lesion, probably a large necrotic metastasis given the above findings, but demonstrates partial fluid attenuation and could represent a separate process such as a complex cyst or liver abscess --> her risk factor is smoking --> get a ct-guided biopsy of liver mass --> will need pet scan as outpatient --> DISCUSSED throroughly with son, daughter and with patient --> consent has been signed --> as per surg and gi recs --> tumor markers ordered --> us guided liver biop on 12/01 # Anemia of chronic disease due to underlying chronic medical issues, multifactorial v Gi bleed --> Anemia workup has been ordered, rule out gi bleed --> No evidence of hemolysis is noted, peripheral smear has been reviewed. --> Hgb goal >7. Transfuse prn. --> Epogen or iron at this time is not particularly indicated --> Medications have been reviewed --> hgb trend: 11.4-->11.9 --> low threshold for gi evaluation in case has occult + # Thrombocytopenia - potential causes multifactorial, evaluate liver and viral etiologies to begin, also could be related to underlying medications patient has received. --> Hep panel and HIV both negative --> ct abd positive for liver lesion and hsm --> Peripheral smear ordered to evaluate for blasts /schistocytes --> abx and other meds have been reviewed --> ok for ppx if plt >50k w/ either heparin or lovenox --> plt trend: 117k # Abdominal pain --> likely related to Metastasis # Liver metastasis # Weakness # Pain management # SW consult for Med-iCAL application Appreciate consultation and milly RN Subjective Allergies: Coded Allergies: No Known Allergies (Unverified , 11/29/19) Subjective 12/01: on med surg, c/o abd pain, us liver biop for today, on room air 12/02: awake and alert, no acute events, stable for dc Objective Objective Current Medications Medications (Trade) Dose Ordered Sig/Deb Route PRN Reason Start Time Stop Time Status Last Admin Dose Admin Acetaminophen (Tylenol) 650 mg Q4H PRN ORAL Mild Pain (Pain Scale 1-3) 11/29/19 18:00 12/29/19 17:59 Albuterol Sulfate (Proventil) 2.5 mg Q4HRT HHN 11/30/19 03:00 12/04/19 20:59 12/02/19 10:24 Albuterol/ Ipratropium (Albuterol/ Ipratropium) 3 ml NEEDED PRN HHN Shortness of Breath 11/29/19 18:00 12/04/19 17:59 12/01/19 03:16 Dextrose (Dextrose 50%) 25 ml Q30M PRN IV Hypoglycemia 11/29/19 18:00 12/29/19 17:59 Dextrose (Dextrose 50%) 50 ml Q30M PRN IV Hypoglycemia 11/29/19 18:00 12/29/19 17:59 Dextrose/ Electrolytes 1,000 ml @ 100 mls/hr Q10H IV 11/29/19 20:00 12/29/19 19:59 12/02/19 08:00 Docusate Sodium (Colace) 100 mg EVERY 12 HOURS ORAL 11/29/19 21:00 12/29/19 20:59 12/02/19 08:20 Enoxaparin Sodium (Lovenox) 40 mg Q24H SUBQ 11/29/19 21:00 12/29/19 20:59 11/29/19 21:20 Hydromorphone HCl (Dilaudid) 1 mg Q6H PRN IVP pain 11/30/19 14:00 12/07/19 13:59 12/02/19 11:23 Lidocaine HCl (Xylocaine 1% 30ml) 30 ml ONCE PRN INJ BIOPSY 12/01/19 13:30 12/02/19 23:59 Lorazepam (Ativan) 1 mg Q4H PRN ORAL For Anxiety 11/29/19 18:00 12/06/19 17:59 12/01/19 03:53 Magnesium Hydroxide (Mom) 30 ml HSPRN PRN ORAL Constipation 11/29/19 18:00 12/29/19 17:59 Ondansetron HCl (Zofran) 4 mg Q4H PRN IVP Nausea & Vomiting 11/30/19 13:45 12/30/19 13:44 12/02/19 11:33 Zolpidem Tartrate (Ambien) 5 mg HSPRN PRN ORAL Insomnia 11/29/19 18:00 12/06/19 17:59 Last 24 Hour Vital Signs Date Time Temp Pulse Resp B/P (MAP) Pulse Ox O2 Delivery O2 Flow Rate FiO2 12/02/19 12:00 98.3 69 20 172/83 (112) 96 12/02/19 10:32 67 16 100 Room Air 21 60 16 96 12/02/19 08:00 98.0 67 20 165/77 (106) 96 12/02/19 06:57 87 18 100 Room Air 21 80 18 97 12/02/19 06:15 Room Air 12/02/19 03:54 98.4 66 18 147/78 (101) 97 12/02/19 03:13 67 20 100 Room Air 21 63 20 96 12/02/19 00:02 91 20 99 Room Air 21 60 20 96 12/01/19 23:56 98.2 65 18 136/71 (92) 98 12/01/19 20:35 Room Air 12/01/19 20:20 63 20 99 Room Air 21 60 20 95 12/01/19 20:00 97.5 58 20 137/69 (91) 100 12/01/19 16:00 98.1 66 16 150/75 (100) 95 12/01/19 15:43 66 20 99 Room Air 21 64 20 96 12/01/19 14:00 63 16 155/70 (98) 99 12/01/19 13:55 62 16 135/60 (85) 99 12/01/19 13:50 61 16 131/64 (86) 98 12/01/19 13:07 63 16 12/01/19 12:00 97.8 65 18 107/70 (82) 98 12/01/19 11:09 69 20 99 Room Air 21 66 20 97 12/01/19 09:00 Room Air 12/01/19 08:00 97.5 58 18 137/69 (91) 100 12/01/19 07:48 60 20 99 Room Air 21 59 20 96 12/01/19 04:00 97.8 67 20 135/71 (92) 98 12/01/19 03:17 69 18 99 Room Air 21 65 18 96 12/01/19 00:00 97.7 104 21 142/68 (92) 93 11/30/19 23:32 71 18 99 Room Air 21 72 18 98 11/30/19 21:00 Room Air 11/30/19 20:00 98.1 72 23 159/86 (110) 97 11/30/19 18:41 64 18 99 Room Air 21 67 18 97 11/30/19 16:00 100.0 66 18 150/71 (97) 99 11/30/19 15:24 69 18 99 Room Air 21 67 18 95 Intake and Output 12/01/19 12/02/19 19:00 07:00 Intake Total 360 ml Balance 360 ml Intake Oral 360 ml # Voids 3 2 # Bowel Movements 6 Labs Test 11/29/19 13:45 11/29/19 14:34 11/30/19 05:38 11/30/19 05:58 White Blood Count 9.8 K/UL (4.8-10.8) 8.7 K/UL (4.8-10.8) Red Blood Count 4.25 M/UL (4.20-5.40) 3.93 M/UL (4.20-5.40) Hemoglobin 13.6 G/DL (12.0-16.0) 12.5 G/DL (12.0-16.0) Hematocrit 38.3 % (37.0-47.0) 35.5 % (37.0-47.0) Mean Corpuscular Volume 90 FL (80-99) 90 FL (80-99) Mean Corpuscular Hemoglobin 32.0 PG (27.0-31.0) 31.7 PG (27.0-31.0) Mean Corpuscular Hemoglobin Concent 35.5 G/DL (32.0-36.0) 35.0 G/DL (32.0-36.0) Red Cell Distribution Width 12.9 % (11.6-14.8) 13.0 % (11.6-14.8) Platelet Count 114 K/UL (150-450) 108 K/UL (150-450) Mean Platelet Volume 12.8 FL (6.5-10.1) 13.3 FL (6.5-10.1) Neutrophils (%) (Auto) 68.4 % (45.0-75.0) 63.9 % (45.0-75.0) Lymphocytes (%) (Auto) 23.0 % (20.0-45.0) 24.5 % (20.0-45.0) Monocytes (%) (Auto) 6.1 % (1.0-10.0) 8.7 % (1.0-10.0) Eosinophils (%) (Auto) 1.7 % (0.0-3.0) 1.8 % (0.0-3.0) Basophils (%) (Auto) 0.9 % (0.0-2.0) 1.1 % (0.0-2.0) Sodium Level 139 MMOL/L (136-145) 139 MMOL/L (136-145) Potassium Level 3.9 MMOL/L (3.5-5.1) 4.0 MMOL/L (3.5-5.1) Chloride Level 102 MMOL/L (98-107) 105 MMOL/L (98-107) Carbon Dioxide Level 26 MMOL/L (21-32) 26 MMOL/L (21-32) Anion Gap 11 mmol/L (5-15) 8 mmol/L (5-15) Blood Urea Nitrogen 12 mg/dL (7-18) 9 mg/dL (7-18) Creatinine 0.6 MG/DL (0.55-1.30) 0.5 MG/DL (0.55-1.30) Estimat Glomerular Filtration Rate > 60 mL/min (>60) > 60 mL/min (>60) Glucose Level 110 MG/DL (74-106) 125 MG/DL (74-106) Calcium Level 9.8 MG/DL (8.5-10.1) 9.6 MG/DL (8.5-10.1) Total Bilirubin 0.5 MG/DL (0.2-1.0) Aspartate Amino Transf (AST/SGOT) 93 U/L (15-37) Alanine Aminotransferase (ALT/SGPT) 83 U/L (12-78) Alkaline Phosphatase 391 U/L (46-116) Total Creatine Kinase 17 U/L (26-308) Troponin I 0.000 ng/mL (0.000-0.056) Pro-B-Type Natriuretic Peptide 70 pg/mL (0-125) Total Protein 8.0 G/DL (6.4-8.2) Albumin 3.1 G/DL (3.4-5.0) Globulin 4.9 g/dL Albumin/Globulin Ratio 0.6 (1.0-2.7) Urine Color Pale yellow Urine Appearance Clear Urine pH 7 (4.5-8.0) Urine Specific [place] 1.005 (1.005-1.035) Urine Protein Negative (NEGATIVE) Urine Glucose (UA) Negative (NEGATIVE) Urine Ketones Negative (NEGATIVE) Urine Blood Negative (NEGATIVE) Urine Nitrite Negative (NEGATIVE) Urine Bilirubin Negative (NEGATIVE) Urine Urobilinogen Normal MG/DL (0.0-1.0) Urine Leukocyte Esterase Negative (NEGATIVE) Activated Partial Thromboplast Time 28 SEC (23-33) C-Reactive Protein, Quantitative 5.7 mg/dL (0.00-0.90) Test 11/30/19 20:00 12/01/19 05:45 12/02/19 04:55 Prothrombin Time 10.2 SEC (9.30-11.50) 10.3 SEC (9.30-11.50) Prothromb Time International Ratio 1.0 (0.9-1.1) 1.0 (0.9-1.1) Alpha Fetoprotein 4.2 ng/mL (0.0-8.3) Carcinoembryonic Antigen 2.2 ng/mL (0.0-4.7) CA 125 Antigen 58.1 U/mL (0.0-38.1) Hepatitis A IgM Antibody Negative (Negative) Hepatitis B Surface Antigen Negative (Negative) Hepatitis B Core IgM Antibody Negative (Negative) Hepatitis C Antibody <0.1 s/co ratio HIV (1&2) Antibody Rapid Negative (NEGATIVE) White Blood Count 7.9 K/UL (4.8-10.8) 8.4 K/UL (4.8-10.8) Red Blood Count 3.57 M/UL (4.20-5.40) 3.78 M/UL (4.20-5.40) Hemoglobin 11.4 G/DL (12.0-16.0) 11.9 G/DL (12.0-16.0) Hematocrit 32.7 % (37.0-47.0) 34.4 % (37.0-47.0) Mean Corpuscular Volume 92 FL (80-99) 91 FL (80-99) Mean Corpuscular Hemoglobin 32.0 PG (27.0-31.0) 31.5 PG (27.0-31.0) Mean Corpuscular Hemoglobin Concent 34.9 G/DL (32.0-36.0) 34.6 G/DL (32.0-36.0) Red Cell Distribution Width 11.8 % (11.6-14.8) 11.4 % (11.6-14.8) Platelet Count 92 K/UL (150-450) 117 K/UL (150-450) Mean Platelet Volume 12.3 FL (6.5-10.1) 12.7 FL (6.5-10.1) Neutrophils (%) (Auto) % (45.0-75.0) 66.9 % (45.0-75.0) Lymphocytes (%) (Auto) % (20.0-45.0) 21.6 % (20.0-45.0) Monocytes (%) (Auto) % (1.0-10.0) 8.7 % (1.0-10.0) Eosinophils (%) (Auto) % (0.0-3.0) 1.8 % (0.0-3.0) Basophils (%) (Auto) % (0.0-2.0) 1.1 % (0.0-2.0) Differential Total Cells Counted 100 Neutrophils % (Manual) 68 % (45-75) Lymphocytes % (Manual) 24 % (20-45) Monocytes % (Manual) 7 % (1-10) Eosinophils % (Manual) 1 % (0-3) Basophils % (Manual) 0 % (0-2) Band Neutrophils 0 % (0-8) Platelet Estimate Decreased Platelet Morphology Normal Erythrocyte Sedimentation Rate 72 MM/HR (0-30) Activated Partial Thromboplast Time 26 SEC (23-33) Sodium Level 139 MMOL/L (136-145) 140 MMOL/L (136-145) Potassium Level 3.9 MMOL/L (3.5-5.1) 3.9 MMOL/L (3.5-5.1) Chloride Level 104 MMOL/L (98-107) 105 MMOL/L (98-107) Carbon Dioxide Level 27 MMOL/L (21-32) 27 MMOL/L (21-32) Anion Gap 8 mmol/L (5-15) 8 mmol/L (5-15) Blood Urea Nitrogen 7 mg/dL (7-18) 9 mg/dL (7-18) Creatinine 0.5 MG/DL (0.55-1.30) 0.5 MG/DL (0.55-1.30) Estimat Glomerular Filtration Rate > 60 mL/min (>60) > 60 mL/min (>60) Glucose Level 118 MG/DL (74-106) 113 MG/DL (74-106) Calcium Level 9.5 MG/DL (8.5-10.1) 9.5 MG/DL (8.5-10.1) Total Bilirubin 0.5 MG/DL (0.2-1.0) Aspartate Amino Transf (AST/SGOT) 72 U/L (15-37) Alanine Aminotransferase (ALT/SGPT) 66 U/L (12-78) Alkaline Phosphatase 309 U/L (46-116) C-Reactive Protein, Quantitative 5.4 mg/dL (0.00-0.90) Total Protein 6.9 G/DL (6.4-8.2) Albumin 2.5 G/DL (3.4-5.0) Globulin 4.4 g/dL Albumin/Globulin Ratio 0.6 (1.0-2.7) Amylase Level 12 U/L (25-115) Lipase 75 U/L (73-393) Height (Feet): 5 Height (Inches): 1.00 Weight (Pounds): 155 Objective Physical Exam: Vitals: reviewed General: NAD HEENT: nc, at Neck: supple Chest: clear breath sounds bilaterally Abdomen: soft, nontender, nd Extremities: no cce, normal range of motion Neuro: alert and oriented Eugene Truong MD Dec 02, 2019 13:12
--- NOTE | 2019-12-02 14:51 | General Progress Note ---
Assessment/Plan Problem List: (1) Abdominal pain ICD Codes: R10.9 - Unspecified abdominal pain SNOMED: 62137199 Qualifiers: Qualified Codes: R10.9 - Unspecified abdominal pain (2) Metastasis ICD Codes: C79.9 - Secondary malignant neoplasm of unspecified site SNOMED: 261857217 Qualifiers: Qualified Codes: C79.9 - Secondary malignant neoplasm of unspecified site (3) Weakness ICD Codes: R53.1 - Weakness SNOMED: 57674416 (4) Liver metastasis ICD Codes: C78.7 - Secondary malignant neoplasm of liver and intrahepatic bile duct SNOMED: 20643752 Status: stable, progressing Assessment/Plan: gi f/u advance diet dc if clear Subjective Constitutional: Reports: weakness Allergies: Coded Allergies: No Known Allergies (Unverified , 11/29/19) All Systems: reviewed and negative except above Subjective calm in bed Objective Last 24 Hour Vital Signs Date Time Temp Pulse Resp B/P (MAP) Pulse Ox O2 Delivery O2 Flow Rate FiO2 12/02/19 14:43 63 18 99 Room Air 21 62 18 97 12/02/19 12:00 98.3 69 20 172/83 (112) 96 12/02/19 10:32 67 16 100 Room Air 21 60 16 96 12/02/19 08:00 98.0 67 20 165/77 (106) 96 12/02/19 06:57 87 18 100 Room Air 21 80 18 97 12/02/19 06:15 Room Air 12/02/19 03:54 98.4 66 18 147/78 (101) 97 12/02/19 03:13 67 20 100 Room Air 21 63 20 96 12/02/19 00:02 91 20 99 Room Air 21 60 20 96 12/01/19 23:56 98.2 65 18 136/71 (92) 98 12/01/19 20:35 Room Air 12/01/19 20:20 63 20 99 Room Air 21 60 20 95 12/01/19 20:00 97.5 58 20 137/69 (91) 100 12/01/19 16:00 98.1 66 16 150/75 (100) 95 12/01/19 15:43 66 20 99 Room Air 21 64 20 96 Intake and Output 12/01/19 12/02/19 19:00 07:00 Intake Total 360 ml Balance 360 ml Intake Oral 360 ml # Voids 3 2 # Bowel Movements 6 Laboratory Tests 12/02/19 04:55: White Blood Count 8.4, Red Blood Count 3.78L, Hemoglobin 11.9L, Hematocrit 34.4L , Mean Corpuscular Volume 91, Mean Corpuscular Hemoglobin 31.5H, Mean Corpuscular Hemoglobin Concent 34.6, Red Cell Distribution Width 11.4L, Platelet Count 117L, Mean Platelet Volume 12.7H, Neutrophils (%) (Auto) 66.9, Lymphocytes (%) (Auto) 21.6, Monocytes (%) (Auto) 8.7, Eosinophils (%) (Auto) 1.8, Basophils (%) (Auto) 1.1, Sodium Level 140, Potassium Level 3.9, Chloride Level 105, Carbon Dioxide Level 27, Anion Gap 8, Blood Urea Nitrogen 9, Creatinine 0.5L, Estimat Glomerular Filtration Rate > 60, Glucose Level 113H, Calcium Level 9.5 Height (Feet): 5 Height (Inches): 1.00 Weight (Pounds): 155 General Appearance: lethargic EENT: normal ENT inspection Neck: normal alignment Cardiovascular: normal peripheral pulses, normal rate, regular rhythm Respiratory/Chest: chest wall non-tender, lungs clear, normal breath sounds Abdomen: normal bowel sounds, non tender, soft Extremities: normal inspection Edema: no edema noted Arm (L), no edema noted Arm (R), no edema noted Leg (L), no edema noted Leg (R), no edema noted Pedal (L), no edema noted Pedal (R), no edema noted Generalized Neurologic: responsive, motor weakness Skin: normal pigmentation, warm/dry Trav Aragon DO Dec 02, 2019 14:51
--- NOTE | 2019-12-02 17:10 | NUR ---
NURSE NOTES: Patient is discharged home at this time via a private vehicle. Patient is accompanied home by her son. Prior discharge, patient is assessed by RN. A&O X 4; no confusion noted. Respiration is even and unlabored on room air. Patient verbalized pain on right upper quadrant, rates her pain level to be 4/10. next pain medication is not due to be administered. Skin is warm and dry to touch. no drainage nor bleeding noted on RUQ biopsy site. IV line removed; applied pressure dressing. Provided discharge instructions to patient to continue medication regimen at home, educated patient about expected and adverse side effects of her medications; also encouraged patient to follow-up with her primary doctor; patient verbalized understanding. Inventory paper and discharge paper signed by patient; RN witnessed signature. Patient, her friend and son exited the hospital. No acute distress noted during discharge.
--- NOTE | 2019-12-06 08:35 | Discharge Summary ---
Discharge Summary Discharge Summary _ DATE OF ADMISSION: 11/29/2019 DATE OF DISCHARGE: 12/02/2019 DISCHARGED BY: Dr. Aragon REASON FOR ADMISSION: 54 years old female with past medical history of hypertension, hyperlipidemia, presented for evaluation due to generalized body pain and fatigue. Her symptoms started about 2 weeks ago. Patient was complaining of the pain in the right shoulder wrapped around her chest and then distended down to her lower abdomen and pelvis. Pain appeared to be migratory. She denied nausea and vomiting. She denied fever chills. She denied shortness of breath or chest pain. Patient reported recent hospitalization in [facility] with discharge diagnosis of chest pain. No hematuria, but reported burning sensation with urination and increased frequency . Upon evaluation blood pressure was 154/90 , otherwise vital signs are stable. Laboratory work-up revealed no leukocytosis ,stable hemoglobin, hematocrit. Platelet count was low -114. Stable electrolytes and renal parameters. AST 93 , ALT 83. Troponin negative, pro BNP 78. Urinalysis revealed no evidence of urinary tract infection. EKG revealed sinus rhythm no acute ischemic changes. Chest x-ray revealed no acute cardiopulmonary pathology. CT scan of the abdomen and pelvis revealed evidence of disseminated malignancy with multiply liver lesions who, peripancreatic lesser sac and retroperitoneal necrotic lymphadenopathy, anterolateral expansile right fifth rib lesion. Lesion in the lung are of the less certain significance , but could also represent small metastatic deposit. Etiology was not definitely demonstrated. Patient received IV fluids and analgesia . Surgeon consulted . Patient was admitted for further management CONSULTANTS: GI specialist Dr. Green voltage regulator assembler/oncologist [facility]. [facility] Dr. Pena [facility]: Patient admitted and started on the IV fluids. Pain management was addressed. GI , oncologist and surgeon closely followed. Patient undergone small bowel x-ray , which revealed normal small bowel series. No evidence of bowel obstruction. Patient subsequently undergone ultrasound-guided core biopsy of liver mass. Cytology of liver mass revealed metastatic adenocarcinoma. Per oncologist, patient likely had stage IV liver versus lung cancer with disseminated malignancy and multiply liver lesions. Patient will need to follow-up with PET scan as outpatient. Information and discussion provided to the patient and her children. Tumor markers revealed normal alpha-fetoprotein , CA-19-9 and CEA. Ca 125 was elevated 58. Thrombocytopenia was multifactorial, possibly due to liver malignancy. Hepatitis panel 8 was negative . HIV test was nonreactive. Platelet count was trended , and prior to discharge PLT 117 . AST and ALT trending down ; AST still elevated likely related related to liver malignancy. No plans for GI procedure. Supportive care provided. Pain management was addressed as needed. Antiemetic were on board . Patient was able to tolerate diet. DVT prophylaxis provided. Patient was on empiric antibiotics. Patient clinically stabilized and was ready for discharge . 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 DISCHARGE INSTRUCTIONS: Patient was discharged home. Outpatient follow-up with primary care provider in 1 week. Patient need outpatient PET scan and follow-up with ADJUNCT HISTORY INSTRUCTOR due to elevated Ca 125. I have been assigned to dictate discharge summary for this account. I was not involved in the patient's management. Kalpana Ford NP Dec 06, 2019 08:35
== END 2019-12-02 17:14 | disposition home or self-care (01) | DRG 281 ==
LOC: EDBD 13:34 → EMR 14:50 → 4E 17:22 → EDBEDREQ 18:11
PROC: 0FB03ZX Excision of Liver, Percutaneous Approach, Diagnostic (ICD-10-PCS; principal; 2019-12-01)
DX: C78.7 Secondary malignant neoplasm of liver and intrahepatic bile duct (principal); C79.51 Secondary malignant neoplasm of bone; C78.6 Secondary malignant neoplasm of retroperitoneum and peritoneum; C77.2 Secondary and unspecified malignant neoplasm of intra-abdominal lymph nodes; E46 Unspecified protein-calorie malnutrition; C78.00 Secondary malignant neoplasm of unspecified lung; I10 Essential (primary) hypertension; E78.5 Hyperlipidemia, unspecified; F17.200 Nicotine dependence, unspecified, uncomplicated; D63.8 Anemia in other chronic diseases classified elsewhere; D69.6 Thrombocytopenia, unspecified
CPT/HCPCS: 36415; 71045; 74177; 74250; 76942; 80048; 80053; 81003; 82105; 82150; 82378; 82550; 83690; 83880; 84484; 85007; 85025; 85610; 85651; 85730; 86140; 86304; 86703; 86705; 86709; 86803; 87081; 87340; 93005; 94640; 94664; 96361; 96365; 96375; 99285; J2405; J7030

== ENCOUNTER 2019-12-07 00:42 | Inpatient (IN) | payer MEDICAID ==
[~2019-12-07] VITALS: Ht 154.9 cm; Wt 65.5 kg
[2019-12-07] MEDS ORDERED: TRAZODONE HCL50 MG ORAL (00:56)
[2019-12-07] MEDS ORDERED: LOSARTAN POTASS25 MG ORAL (00:56)
--- NOTE | 2019-12-07 00:56 | Emergency Room Report ---
History of Present Illness General Chief Complaint: Gastrointestinal Bleed Source: Patient Present Illness HPI 54-year-old female history of liver cancer presents with acute episodes of hematemesis x 3, she endorses nausea, no known aggravating relieving factors severity is moderate, she also endorses generalized abdominal pain achy in nature not sharp no fevers no chills patient presents for evaluation Allergies: Coded Allergies: No Known Allergies (Unverified , 11/29/19) Patient History Past Medical History: see triage record Last Menstrual Period: n/a Reviewed Nursing Documentation: PMH: Agreed; PSxH: Agreed Nursing Documentation-PMH Hx Hypertension: Yes Hx Gastrointestinal Problems: No Hx Neurological Problems: No Review of Systems All Other Systems: negative except mentioned in HPI Physical Exam Vital Signs Date Time Temp Pulse Resp B/P (MAP) Pulse Ox O2 Delivery O2 Flow Rate FiO2 12/07/19 00:46 97.9 67 20 149/76 (100) 96 Room Air Sp02 EP Interpretation: reviewed, normal General Appearance: well appearing, no apparent distress, alert Head: normocephalic, atraumatic Eyes: bilateral eye PERRL, bilateral eye EOMI ENT: uvula midline, moist mucus membranes Neck: supple, thyroid normal, supple/symm/no masses Respiratory: lungs clear, no respiratory distress, no retraction, no accessory muscle use Cardiovascular #1: normal peripheral pulses, regular rate, rhythm, no edema, no gallop, no murmur Gastrointestinal: soft, no guarding, no rebound, tenderness - Diffuse Musculoskeletal: normal inspection Neurologic: alert, oriented x3 Psychiatric: mood/affect normal Skin: no rash, warm/dry Procedures Critical Care Time Critical Care Time Given the critical condition in which the patient arrived, the patient was immediately assessed by myself and the nurse, and cardiac monitoring initiated due to the potential for rapid decompensation of the patient's clinical condition. During the course of the patient's stay, I spent a considerable amount of time at the bedside performing serial re-evaluations of the patient's hemodynamic and clinical status because of the recognized potential threat to life or limb in this condition. I then had a chance to review not only all of the available current laboratory and radiographic studies obtained today, but I also reviewed old records available to me at the time. Additionally, any ancillary information available including commercial drafter records were reviewed. Sequential vital signs were obtained. Critical Care time of 36 minutes was performed exclusive of billable procedures. Medical Decision Making Diagnostic Impression: Primary Impression: Gastrointestinal hemorrhage Qualified Codes: K92.2 - Gastrointestinal hemorrhage, unspecified Additional Impression: Hematemesis Qualified Codes: K92.0 - Hematemesis ER Course 54-year-old female history of malignant cancer presents with acute hematemesis x3 episodes Protonix started, antinausea medication started plan for admission, type and screen Patient readmitted to Dr. Aragon Laboratory Tests Test 12/07/19 01:10 White Blood Count 9.3 K/UL (4.8-10.8) Red Blood Count 4.19 M/UL (4.20-5.40) L Hemoglobin 13.6 G/DL (12.0-16.0) Hematocrit 38.3 % (37.0-47.0) Mean Corpuscular Volume 91 FL (80-99) Mean Corpuscular Hemoglobin 32.4 PG (27.0-31.0) H Mean Corpuscular Hemoglobin Concent 35.5 G/DL (32.0-36.0) Red Cell Distribution Width 11.6 % (11.6-14.8) Platelet Count 134 K/UL (150-450) L Mean Platelet Volume 10.9 FL (6.5-10.1) H Neutrophils (%) (Auto) 60.3 % (45.0-75.0) Lymphocytes (%) (Auto) 26.9 % (20.0-45.0) Monocytes (%) (Auto) 9.8 % (1.0-10.0) Eosinophils (%) (Auto) 2.2 % (0.0-3.0) Basophils (%) (Auto) 0.9 % (0.0-2.0) Prothrombin Time 10.0 SEC (9.30-11.50) Prothrombin Time INR 0.9 (0.9-1.1) Activated Partial Thromboplast Time 26 SEC (23-33) Sodium Level 141 MMOL/L (136-145) Potassium Level 3.8 MMOL/L (3.5-5.1) Chloride Level 104 MMOL/L (98-107) Carbon Dioxide Level 28 MMOL/L (21-32) Anion Gap 9 mmol/L (5-15) Blood Urea Nitrogen 14 mg/dL (7-18) Creatinine 0.8 MG/DL (0.55-1.30) Estimate Glomerular Filtration Rate > 60 mL/min (>60) Glucose Level 112 MG/DL (74-106) H Calcium Level 10.2 MG/DL (8.5-10.1) H Total Bilirubin 0.6 MG/DL (0.2-1.0) Aspartate Amino Transferase (AST) 89 U/L (15-37) H Alanine Aminotransferase (ALT) 72 U/L (12-78) Alkaline Phosphatase 388 U/L (46-116) H Total Protein 8.0 G/DL (6.4-8.2) Albumin 3.2 G/DL (3.4-5.0) L Globulin 4.8 g/dL Albumin/Globulin Ratio 0.7 (1.0-2.7) L Lipase 165 U/L (73-393) EKG Diagnostic Results EKG Time: 01:10 EP Interpretation: NSR, rate 62, QTc 446, no acute ST elevations, left axis deviation Rhythm Strip Diag. Results Rhythm Strip Time: 01:11 EP Interpretation: yes Rate: 64 Rhythm: NSR, no PVC's, no ectopy Chest X-Ray Diagnostic Results Chest X-Ray Diagnostic Results : Chest X-Ray Ordered: Yes # of Views/Limited/Complete: 1 View Indication: Other - Hematemesis EP Interpretation: Yes Interpretation: no consolidation, no effusion, no pneumothorax, no acute cardiopulmonary disease Impression: No acute disease Electronically Signed by: Vince Pickering MD CT/MRI/US Diagnostic Results CT/MRI/US Diagnostic Results : Impression Preliminary Findings Only See Final Report For Complete Findings CT ABDOMEN & PELVIS With Contrast: Comparison: 11/29/19 Multiple pulmonary metastases in the visualized lung bases. Large heterogeneous masses and innumerable nodules throughout the liver consistent with metastatic disease. Mesenteric and retroperitoneal lymphadenopathy. Mild increase in amount of fluid in the abdomen and significant increase in fluid in the pelvis. Negative for lower GI tract obstruction. Nonspecific mild small bowel wall thickening. Negative for pneumoperitoneum. Lytic bone lesions again noted. Radiologist: Tarik Cotton MD Study ready at 02:53 and initial results transmitted at 03:13 Last Vital Signs Date Time Temp Pulse Resp B/P (MAP) Pulse Ox O2 Delivery O2 Flow Rate FiO2 12/07/19 00:46 97.9 67 20 149/76 (100) 96 Room Air Disposition: ADMITTED INPATIENT Condition: Critical Vince Pickering MD Dec 07, 2019 00:56
[2019-12-07] MEDS ORDERED: Pantoprazole Inj IV ONE (01:00)
[2019-12-07] MEDS ORDERED: cefTRIAXone 1 GM in NS 55 ML IVPB ONE (01:00)
[2019-12-07] MEDS ORDERED: Omnipaque-300 100ml vial INJ PRN (01:00)
[2019-12-07 01:10] VITALS: BP 149/76
[2019-12-07 01:24] LABS: BASOPHILS % (AUTO) 0.9 % (0.0-2.0); EOSINOPHILS % (AUTO) 2.2 % (0.0-3.0); HEMATOCRIT 38.3 % (37.0-47.0); HEMOGLOBIN 13.6 G/DL (12.0-16.0); LYMPHOCYTES % (AUTO) 26.9 % (20.0-45.0); MEAN CORPUSCULAR VOLUME 91 FL (80-99); MONOCYTES % (AUTO) 9.8 % (1.0-10.0); NEUTROPHILS % (AUTO) 60.3 % (45.0-75.0); PLATELET COUNT 134 K/UL (150-450); RED BLOOD COUNT 4.19 M/UL (4.20-5.40); RED CELL DISTRIBUTION WIDTH 11.6 % (11.6-14.8); WHITE BLOOD COUNT 9.3 K/UL (4.8-10.8)
[2019-12-07] MEDS ORDERED: Hydromorphone 0.5mg/0.5ml inj IVP ONE (01:30)
[2019-12-07 01:35] LABS: ANION GAP 9 mmol/L (5-15); BLOOD UREA NITROGEN 14 mg/dL (7-18); CALCIUM 10.2 MG/DL (8.5-10.1); CARBON DIOXIDE 28 MMOL/L (21-32); CHLORIDE 104 MMOL/L (98-107); CREATININE 0.8 MG/DL (0.55-1.30); POTASSIUM 3.8 MMOL/L (3.5-5.1); SODIUM 141 MMOL/L (136-145)
[2019-12-07 01:39] LABS: ALANINE AMINOTRANSFERASE 72 U/L (12-78); ALBUMIN 3.2 G/DL (3.4-5.0); ALBUMIN/GLOBULIN RATIO 0.7 (1.0-2.7); ALKALINE PHOSPHATASE 388 U/L (46-116); ASPARTATE AMINO TRANSFERASE 89 U/L (15-37); BILIRUBIN,TOTAL 0.6 MG/DL (0.2-1.0)
[2019-12-07 01:45] LABS: INR 0.9 (0.9-1.1)
[2019-12-07 02:08] VITALS: BP 140/78
[2019-12-07] MEDS ORDERED: Hydromorphone 0.5mg/0.5ml inj SUBQ PRN (02:15)
--- NOTE | 2019-12-07 03:14 | Diagnostic Imaging Report ---
INDICATION: Abdominal pain TECHNIQUE: Continuous helical transaxial imaging of the abdomen and pelvis was obtained from the lung bases to the pubic symphysis during intravenous contrast administration. Coronal 2-D reformats were also obtained. Study obtained in a Siemens sensation [address] Automatic Exposure Control was utilized. Total Dose length Product (DLP): 355.[address] Dose Index Volume (CTDIvol): 6.7 mGy COMPARISON: 11/29/2019 FINDINGS: Lungs: There is a 4 mm nodule at the peripheral right lung base as well as other tiny nodular densities at both lung bases suspicious for metastatic neoplasm. There is a destructive lesion involving the anterolateral part of the right fifth rib suspicious for metastatic neoplasm. Patchy groundglass opacities at the lung bases noted nonspecific. Cardiomegaly is present.. Liver: There are multiple hypodensities within the liver consistent with metastatic neoplasm. The largest focus is in the right hepatic dome where there is an area of 8 or 9 cm confluent low-attenuation mass. Most of the additional nodules are considered smaller. Gallbladder/biliary system: The gallbladder is distended. There are no obvious stones on this study. There is no evidence of biliary ductal dilatation.. Spleen: Unremarkable Pancreas: Unremarkable Kidneys/Bladder: There is no hydronephrosis. There is a 1.8 cm right renal cyst noted. The bladder is unremarkable.. Adrenal glands: Unremarkable Aorta/IVC: Mild calcification of aorta noted consistent with atherosclerotic disease. Bowel: There is no evidence of bowel obstruction. The appendix is not seen but no secondary signs of appendicitis appreciated. There may be minimal distention of small bowel in the anterior abdomen nonspecific. Peritoneum: There is evidence of lymphadenopathy adjacent to the aorta and IVC particularly in the area of the celiac trunk. Celiac axis nodes are also noted. Nodes in the lesser sac or gastrohepatic ligament are likely present as well. There is mild ascites mainly present within the lower abdomen and pelvis. Small amount of fluid also surrounds the liver and spleen.. Bones: Few scattered mixed sclerotic and lytic foci demonstrated throughout the thoracic and lumbar spine. Previous description of the right fifth rib destructive lesion noted. Findings are suspicious for metastatic neoplasm. Bone scan may be of benefit to evaluate this. IMPRESSION: Evidence of widespread metastatic neoplasm with the extensive involvement of the liver, multiple lung nodules, evidence of bony metastasis, retroperitoneal and mesenteric adenopathy. Similar findings seen previously. Mild ascites. No evidence of bowel obstruction. Atherosclerotic vascular disease. Mild patchy groundglass opacities within the lung bases, nonspecific in nature. The CT scanner at [facility] is accredited by the [employer] and the scans are performed using dose optimization techniques as appropriate to a performed exam including Automatic Exposure control.
[2019-12-07] MEDS ORDERED: NAPROXEN500 M2 ORAL (04:07)
[2019-12-07] MEDS ORDERED: TRAMADOL HCL50 MG ORAL (04:07)
[2019-12-07] MEDS ORDERED: LOSARTAN POTASS50 MG ORAL (04:09)
[2019-12-07] MEDS ORDERED: Ketorolac 30mg Inj IV ONE (05:45)
[2019-12-07] MEDS ORDERED: HYDROmorphone 1mg/ml Carpuject IVP ONE (05:45)
[2019-12-07] MEDS ORDERED: LORazepam 1mg tab ORAL PRN (06:00)
[2019-12-07] MEDS: D5 1/2NS 1,000 ML IV SCH ×3 (06:07→20:21)
--- NOTE | 2019-12-07 06:29 | Consultation ---
History of Present Illness General Chief Complaint: Gastrointestinal Bleed Present Illness Allergies: Coded Allergies: No Known Allergies (Unverified , 11/29/19) Medication History Scheduled Losartan Potassium* (Losartan Potassium*), 25 MG ORAL DAILY, (Reported) Naproxen* (Naproxen*), 500 MG ORAL TWICE A DAY, (Reported) Trazodone Hcl* (Desyrel*), 50 MG ORAL BEDTIME, (Reported) Scheduled PRN Losartan Potassium* (Losartan Potassium*), 50 MG ORAL BID PRN for For High Blood Pressure, (Reported) Tramadol Hcl* (Ultram*), 50 MG ORAL BID PRN for For Pain, (Reported) Patient History Healthcare decision maker KACY ANTONY Resuscitation status Full Code Advanced Directive on File No Physical Exam Last 24 Hour Vital Signs Date Time Temp Pulse Resp B/P (MAP) Pulse Ox O2 Delivery O2 Flow Rate FiO2 12/07/19 04:30 Room Air 12/07/19 04:00 74 12/07/19 04:00 74 12/07/19 03:00 97.9 64 20 136/80 98 Room Air 12/07/19 02:09 97.9 12/07/19 02:08 97.9 62 22 140/78 96 Room Air 12/07/19 01:10 97.9 67 20 149/76 96 Room Air 12/07/19 01:10 67 20 Room Air 12/07/19 00:46 97.9 67 20 149/76 (100) 96 Room Air Intake and Output 12/06/19 12/07/19 19:00 07:00 Intake Total 2055 ml Balance 2055 ml Intake IV Total 2055 ml # Voids 1 # Bowel Movements 3 Laboratory Tests Test 12/07/19 01:10 White Blood Count 9.3 K/UL (4.8-10.8) Red Blood Count 4.19 M/UL (4.20-5.40) L Hemoglobin 13.6 G/DL (12.0-16.0) Hematocrit 38.3 % (37.0-47.0) Mean Corpuscular Volume 91 FL (80-99) Mean Corpuscular Hemoglobin 32.4 PG (27.0-31.0) H Mean Corpuscular Hemoglobin Concent 35.5 G/DL (32.0-36.0) Red Cell Distribution Width 11.6 % (11.6-14.8) Platelet Count 134 K/UL (150-450) L Mean Platelet Volume 10.9 FL (6.5-10.1) H Neutrophils (%) (Auto) 60.3 % (45.0-75.0) Lymphocytes (%) (Auto) 26.9 % (20.0-45.0) Monocytes (%) (Auto) 9.8 % (1.0-10.0) Eosinophils (%) (Auto) 2.2 % (0.0-3.0) Basophils (%) (Auto) 0.9 % (0.0-2.0) Prothrombin Time 10.0 SEC (9.30-11.50) Prothromb Time International Ratio 0.9 (0.9-1.1) Activated Partial Thromboplast Time 26 SEC (23-33) Sodium Level 141 MMOL/L (136-145) Potassium Level 3.8 MMOL/L (3.5-5.1) Chloride Level 104 MMOL/L (98-107) Carbon Dioxide Level 28 MMOL/L (21-32) Anion Gap 9 mmol/L (5-15) Blood Urea Nitrogen 14 mg/dL (7-18) Creatinine 0.8 MG/DL (0.55-1.30) Estimat Glomerular Filtration Rate > 60 mL/min (>60) Glucose Level 112 MG/DL (74-106) H Calcium Level 10.2 MG/DL (8.5-10.1) H Total Bilirubin 0.6 MG/DL (0.2-1.0) Aspartate Amino Transf (AST/SGOT) 89 U/L (15-37) H Alanine Aminotransferase (ALT/SGPT) 72 U/L (12-78) Alkaline Phosphatase 388 U/L (46-116) H Total Protein 8.0 G/DL (6.4-8.2) Albumin 3.2 G/DL (3.4-5.0) L Globulin 4.8 g/dL Albumin/Globulin Ratio 0.7 (1.0-2.7) L Lipase 165 U/L (73-393) Microbiology Date/Time Source Procedure Growth Status 12/07/19 02:45 Rectum Received Height (Feet): 5 Height (Inches): 1.00 Weight (Pounds): 145 Medications Current Medications Medications (Trade) Dose Ordered Sig/Deb Route PRN Reason Start Time Stop Time Status Last Admin Dose Admin Acetaminophen (Tylenol) 650 mg Q4H PRN ORAL Mild Pain (Pain Scale 1-3) 12/07/19 06:00 01/06/20 05:59 Dextrose (Dextrose 50%) 25 ml Q30M PRN IV Hypoglycemia 12/07/19 06:00 01/06/20 05:59 Dextrose (Dextrose 50%) 50 ml Q30M PRN IV Hypoglycemia 12/07/19 06:00 01/06/20 05:59 Dextrose/Sodium Chloride 1,000 ml @ 75 mls/hr DAILY IV 12/07/19 06:00 01/06/20 05:59 12/07/19 06:07 Enoxaparin Sodium (Lovenox) 40 mg DAILY SUBQ 12/07/19 09:00 01/06/20 08:59 Famotidine (Pepcid) 40 mg DAILY ORAL 12/07/19 09:00 01/06/20 08:59 Hydromorphone HCl (Dilaudid) 1 mg Q8H PRN IVP Moderate Pain (Pain Scale 4-6) 12/07/19 06:00 12/14/19 05:59 Iohexol (OMNIPAQUE-300 100ml) 100 ml NOW PRN INJ Radiology Procedure 12/07/19 01:00 12/09/19 00:54 Lorazepam (Ativan) 1 mg Q4H PRN ORAL For Anxiety 12/07/19 06:00 12/14/19 05:59 Morphine Sulfate (Morphine Sulfate) 2 mg Q8H PRN IVP Severe Pain (Pain Scale 7-10) 12/07/19 06:00 12/14/19 05:59 Ondansetron HCl (Zofran) 4 mg Q6H PRN IVP Nausea & Vomiting 12/07/19 06:00 01/06/20 05:59 Assessment/Plan Assessment/Plan: Oncology Consultation Date patient seen: 12/06/2019 Reason for Hospitalization: Pain, nausea Referring physician: JAYESH VILLAFANA Reason for Consultation: Stage iv malignancy ID 54-year-old female with history of hypertension hyperlipidemia presenting for evaluation of body wide pain and fatigue. Symptoms present approximately 3 weeks. She states that originally she was complaining of a pain in the right shoulder which spread to her back wrapped around her chest and then descended now into her lower abdomen and pelvis. This is been ongoing for approximately 2 weeks and appears to be migratory. She denies any nausea or vomiting fever or chills. She currently denies any chest pain or shortness of breath. She states she was admitted to [facility] last week with a discharge diagnosis of "chest pain." GI consulted for abdominal pain. Pt seen, awake A&Ox4 NAD has c/o of generalized abdominal pain. Abdomen has mild distention, tenderness in all quadrants, no bloating or tympany noted. Abdominal Pelvis CT noted evidence of disseminated malignancy, with multiple liver lesions, peripancreatic, lesser sac , and retroperitoneal necrotic lymphadenopathy, anterolateral expansile right fifth rib lesion. Lesion in the lungs are of less certain significance but could also represent small metastatic deposit. Etiology not definitely demonstrated. 7 x 8 x 5.6 cm left lobe liver lesion, probably a large necrotic metastasis given the above findings, but demonstrates partial fluid attenuation and could represent a separate process such as a complex cyst or liver abscess. Patient has no history of endoscopy or colonoscopy. Denies any ETOH, IVDA or tobacco use. CT guided biopsy of liver lesion reviewed and shows cancer likely pancreatic origin. Home Meds No Active Prescriptions or Reported Meds Med list reviewed/reconciled: Yes Allergies: Coded Allergies: No Known Allergies (Unverified , 11/29/19) Patient History History Provided By: Patient, Medical Record PMH Narrative PMH: Hypertension, hyperlipidemia PSH: Reviewed Allergies: Reviewed Social Hx: Reviewed, current smoker Social History: Denies: smoking, alcohol use, drug use, other ROS (review of systems): Constitutional: No fever, no chills, no night sweats, no fatigue Skin: No rashes, lumps, itchiness, dryness HEENT: No ALY, ear ache, visual changes, double vision, nosebleeds Breasts: No lumps, pain, discharge Pulmonary: No cough, sputum, shortness of breath, coughing up blood Cardiovascular: No chest pain, tightness, palpitations, syncope, PND GI: No nausea, vomiting, diarrhea, melena, hematochezia, change in appetite, : No dysuria, frequency, urgency, urinary incontinence, foamy urine Musculoskeletal: No joint swelling or muscle pain, trauma, back pain Neurologic: No dizziness, fainting, seizures, changes in smell or taste Psychiatric: No nervousness, stress, or depression, anxiety, hallucinations Endocrine: No weight change, heat or cold intolerance, tremor, insomnia Physical Exam: Vitals: reviewed General: NAD HEENT: nc, at Neck: supple Chest: clear breath sounds bilaterally Abdomen: soft, nontender, nd Extremities: no cce, normal range of motion Neuro: alert and oriented Labs: reviewed Imaging: noted Assessment and Recs # Stage iv likely pancreatic origin -- with disseminated malignancy, with multiple liver lesions, peripancreatic, lesser sac, and retroperitoneal necrotic lymphadenopathy, anterolateral expansile right fifth rib lesion. Lesion in the lungs are of less certain significance but could also represent small metastatic deposit. Etiology not definitely demonstrated 7 x 8 x 5.6 cm left lobe liver lesion, probably a large necrotic metastasis given the above findings, but demonstrates partial fluid attenuation and could represent a separate process such as a complex cyst or liver abscess --> her risk factor is smoking --> biopsy done on last admission shows likely pancreatic origin (is not lung or gi), will r/o ovarian as well --> will need pet scan as outpatient --> DISCUSSED thoroughly with son, and sister --> will need to have insurance approved prior to chemo as outpatient # Anemia of chronic disease due to underlying chronic medical issues, multifactorial v Gi bleed --> Anemia workup has been ordered, rule out gi bleed --> No evidence of hemolysis is noted, peripheral smear has been reviewed. --> Hgb goal >7. Transfuse prn. --> Epogen or iron at this time is not particularly indicated --> Medications have been reviewed --> hgb trend: 11.4-->13 --> low threshold for gi evaluation in case has occult + # Thrombocytopenia - potential causes multifactorial, evaluate liver and viral etiologies to begin, also could be related to underlying medications patient has received. --> Hep panel and HIV both negative --> ct abd positive for liver lesion and hsm --> Peripheral smear ordered to evaluate for blasts /schistocytes --> abx and other meds have been reviewed --> ok for ppx if plt >50k w/ either heparin or lovenox --> plt trend: 117k-->134 # Abdominal pain --> likely related to Metastasis # Liver metastasis # Weakness # Pain management # SW consult for Med-iCAL application Appreciate consultation and dw Eugene Bautista MD Dec 07, 2019 06:29
[2019-12-07 08:00] VITALS: BP 125/67
[2019-12-07 08:26] LABS: BASOPHILS % (AUTO) 0.8 % (0.0-2.0); EOSINOPHILS % (AUTO) 2.6 % (0.0-3.0); HEMATOCRIT 34.9 % (37.0-47.0); HEMOGLOBIN 12.2 G/DL (12.0-16.0); LYMPHOCYTES % (AUTO) 28.9 % (20.0-45.0); MEAN CORPUSCULAR VOLUME 92 FL (80-99); MONOCYTES % (AUTO) 9.7 % (1.0-10.0); PLATELET COUNT 115 K/UL (150-450); RED BLOOD COUNT 3.78 M/UL (4.20-5.40); RED CELL DISTRIBUTION WIDTH 11.8 % (11.6-14.8); WHITE BLOOD COUNT 7.8 K/UL (4.8-10.8)
[2019-12-07 08:54] LABS: ALANINE AMINOTRANSFERASE 61 U/L (12-78); ALBUMIN 2.8 G/DL (3.4-5.0); ALBUMIN/GLOBULIN RATIO 0.7 (1.0-2.7); ALKALINE PHOSPHATASE 331 U/L (46-116); ANION GAP 7 mmol/L (5-15); ASPARTATE AMINO TRANSFERASE 75 U/L (15-37); BILIRUBIN,TOTAL 0.5 MG/DL (0.2-1.0); BLOOD UREA NITROGEN 11 mg/dL (7-18); CALCIUM 9.7 MG/DL (8.5-10.1); CARBON DIOXIDE 29 MMOL/L (21-32); CHLORIDE 105 MMOL/L (98-107); CREATININE 0.7 MG/DL (0.55-1.30); POTASSIUM 4.3 MMOL/L (3.5-5.1); SODIUM 141 MMOL/L (136-145)
[2019-12-07] MEDS: Enoxaparin 40mg Inj SUBQ SCH (09:00)
--- NOTE | 2019-12-07 11:24 | GI Initial Consult Note ---
History of Present Illness General Date patient seen: Dec 07, 2019 Time patient seen: 11:18 Reason for Hospitalization: Gastrointestinal Bleed Referring physician: JAYESH VILLAFANA Reason for Consultation: UGIB Present Illness HPI GI consulted for reported hematemesis versus epistaxis. Patient seen, awake alert oriented x4 no apparent distress. According to the patient, she had both episodes of amount of emesis and epistaxis. In addition the patient complained of being unable to tolerate any p.o. which causes her to become nauseous. The patient was a previous admission here at [facility] approximately 1 week ago in which she was found with multiple liver lesions. 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 The patient was scheduled for outpatient PET scan however was pending prior approval from insurance. Abdominal pelvis CT was performed noted with evidence of widespread metastatic neoplasm with extensive involvement of the liver, multiple lung nodules, evidence of bony metastasis, retroperitoneal and mesenteric adenopathy. Also noted with mild ascites. Laboratory reviewed significant for hemoglobin 12.2, hematocrit 34.9, WBC 7.8, platelet 115, INR 0.9 , AST 75, alkaline phosphatase 331, lipase 165. The patient has no history of endoscopic or colonoscopy. Home Meds Reported Medications Losartan Potassium* (LOSARTAN POTASSIUM*) 50 Mg Tablet, 50 MG ORAL BID PRN for For High Blood Pressure, TAB 12/07/19 Naproxen* (NAPROXEN*) 500 Mg Tablet, 500 MG ORAL TWICE A DAY for MODERATE PAIN, TAB 12/07/19 Tramadol Hcl* (ULTRAM*) 50 Mg Tablet, 50 MG ORAL BID PRN for For Pain, #12 TAB 0 Refills 12/07/19 Losartan Potassium* (LOSARTAN POTASSIUM*) 25 Mg Tablet, 25 MG ORAL DAILY for HTN , TAB 12/07/19 Trazodone Hcl* (DESYREL*) 50 Mg Tablet, 50 MG ORAL BEDTIME for pain, TAB 12/07/19 Med list reviewed/reconciled: Yes Allergies: Coded Allergies: No Known Allergies (Unverified , 11/29/19) Patient History History Provided By: Patient, Medical Record PMH Narrative PMH: Hypertension, hyperlipidemia PSH: Reviewed Allergies: Reviewed Social Hx: Reviewed, current smoker Social History: Denies: smoking, alcohol use, drug use, other Social History: Denies: smoking, alcohol use, drug use, other Review of Systems All Other Systems: negative except mentioned in HPI Physical Exam Vital Signs Date Time Temp Pulse Resp B/P (MAP) Pulse Ox O2 Delivery O2 Flow Rate FiO2 12/07/19 00:46 97.9 67 20 149/76 (100) 96 Room Air Sp02 EP Interpretation: reviewed, normal Labs Laboratory Tests Test 12/07/19 01:10 12/07/19 08:00 White Blood Count 9.3 K/UL (4.8-10.8) 7.8 K/UL (4.8-10.8) Red Blood Count 4.19 M/UL (4.20-5.40) L 3.78 M/UL (4.20-5.40) L Hemoglobin 13.6 G/DL (12.0-16.0) 12.2 G/DL (12.0-16.0) Hematocrit 38.3 % (37.0-47.0) 34.9 % (37.0-47.0) L Mean Corpuscular Volume 91 FL (80-99) 92 FL (80-99) Mean Corpuscular Hemoglobin 32.4 PG (27.0-31.0) H 32.2 PG (27.0-31.0) H Mean Corpuscular Hemoglobin Concent 35.5 G/DL (32.0-36.0) 34.9 G/DL (32.0-36.0) Red Cell Distribution Width 11.6 % (11.6-14.8) 11.8 % (11.6-14.8) Platelet Count 134 K/UL (150-450) L 115 K/UL (150-450) L Mean Platelet Volume 10.9 FL (6.5-10.1) H 12.6 FL (6.5-10.1) H Neutrophils (%) (Auto) 60.3 % (45.0-75.0) 58.0 % (45.0-75.0) Lymphocytes (%) (Auto) 26.9 % (20.0-45.0) 28.9 % (20.0-45.0) Monocytes (%) (Auto) 9.8 % (1.0-10.0) 9.7 % (1.0-10.0) Eosinophils (%) (Auto) 2.2 % (0.0-3.0) 2.6 % (0.0-3.0) Basophils (%) (Auto) 0.9 % (0.0-2.0) 0.8 % (0.0-2.0) Prothrombin Time 10.0 SEC (9.30-11.50) Prothromb Time International Ratio 0.9 (0.9-1.1) Activated Partial Thromboplast Time 26 SEC (23-33) Sodium Level 141 MMOL/L (136-145) 141 MMOL/L (136-145) Potassium Level 3.8 MMOL/L (3.5-5.1) 4.3 MMOL/L (3.5-5.1) Chloride Level 104 MMOL/L (98-107) 105 MMOL/L (98-107) Carbon Dioxide Level 28 MMOL/L (21-32) 29 MMOL/L (21-32) Anion Gap 9 mmol/L (5-15) 7 mmol/L (5-15) Blood Urea Nitrogen 14 mg/dL (7-18) 11 mg/dL (7-18) Creatinine 0.8 MG/DL (0.55-1.30) 0.7 MG/DL (0.55-1.30) Estimat Glomerular Filtration Rate > 60 mL/min (>60) > 60 mL/min (>60) Glucose Level 112 MG/DL (74-106) H 104 MG/DL (74-106) Calcium Level 10.2 MG/DL (8.5-10.1) H 9.7 MG/DL (8.5-10.1) Total Bilirubin 0.6 MG/DL (0.2-1.0) 0.5 MG/DL (0.2-1.0) Aspartate Amino Transf (AST/SGOT) 89 U/L (15-37) H 75 U/L (15-37) H Alanine Aminotransferase (ALT/SGPT) 72 U/L (12-78) 61 U/L (12-78) Alkaline Phosphatase 388 U/L (46-116) H 331 U/L (46-116) H Total Protein 8.0 G/DL (6.4-8.2) 7.0 G/DL (6.4-8.2) Albumin 3.2 G/DL (3.4-5.0) L 2.8 G/DL (3.4-5.0) L Globulin 4.8 g/dL 4.2 g/dL Albumin/Globulin Ratio 0.7 (1.0-2.7) L 0.7 (1.0-2.7) L Lipase 165 U/L (73-393) General Appearance: well appearing, no apparent distress, alert Head: normocephalic EENT: PERRL/EOMI, normal ENT inspection Neck: supple Respiratory: normal breath sounds, no respiratory distress Cardiovascular: normal rate Gastrointestinal: normal inspection, non tender, soft, normal bowel sounds, non -distended Rectal: deferred Genitourinary: no CVA tenderness Musculoskeletal: normal inspection, back normal Neurologic: alert, oriented x3, responsive, normal inspection Psychiatric: normal inspection, judgement/insight normal, memory normal Skin: normal inspection, normal color, no rash, warm/dry, palpation normal, well hydrated Lymphatic: normal inspection, no adenopathy Current Medications Current Medications Medications (Trade) Dose Ordered Sig/Deb Route PRN Reason Start Time Stop Time Status Last Admin Dose Admin Acetaminophen (Tylenol) 650 mg Q4H PRN ORAL Mild Pain (Pain Scale 1-3) 12/07/19 06:00 01/06/20 05:59 Dextrose (Dextrose 50%) 25 ml Q30M PRN IV Hypoglycemia 12/07/19 06:00 01/06/20 05:59 Dextrose (Dextrose 50%) 50 ml Q30M PRN IV Hypoglycemia 12/07/19 06:00 01/06/20 05:59 Dextrose/Sodium Chloride 1,000 ml @ 75 mls/hr DAILY IV 12/07/19 06:00 01/06/20 05:59 12/07/19 09:15 Enoxaparin Sodium (Lovenox) 40 mg DAILY SUBQ 12/07/19 09:00 01/06/20 08:59 Famotidine (Pepcid) 40 mg DAILY ORAL 12/07/19 09:00 01/06/20 08:59 12/07/19 09:15 Hydromorphone HCl (Dilaudid) 1 mg Q8H PRN IVP Moderate Pain (Pain Scale 4-6) 12/07/19 06:00 12/14/19 05:59 Iohexol (OMNIPAQUE-300 100ml) 100 ml NOW PRN INJ Radiology Procedure 12/07/19 01:00 12/09/19 00:54 Lorazepam (Ativan) 1 mg Q4H PRN ORAL For Anxiety 12/07/19 06:00 12/14/19 05:59 Morphine Sulfate (Morphine Sulfate) 2 mg Q8H PRN IVP Severe Pain (Pain Scale 7-10) 12/07/19 06:00 12/14/19 05:59 Ondansetron HCl (Zofran) 4 mg Q6H PRN IVP Nausea & Vomiting 12/07/19 06:00 01/06/20 05:59 GI: Plan Problems: (1) Liver metastasis (2) Hematemesis (3) Gastrointestinal hemorrhage Plan Stable H&H at this time, will monitor for any additional signs or symptoms of any GI bleeds. We will consider endoscopy only if emergent. Okay to advance the patient's diet We will start patient on a PPI twice daily Monitor H&H, as needed transfusions We will add low-dose Reglan ATC for GI motility Zofran PRN Follow-up oncology recommendations We will follow on a daily basis with any additional recommendations Discussed with Dr. Green. Thank you for this patient referral, we will follow. The patient was seen and examined at bedside and all new and available data was reviewed in the patients chart. I agree with the above findings, impression and plan. (Patient seen earlier today. Signature stamp does not reflect patient encounter time.). - MD Sarahi Davidson,Katia-Juvenal KEELY Dec 07, 2019 11:24
--- NOTE | 2019-12-07 11:33 | Diagnostic Imaging Report ---
Indication:Lower abdominal and pelvic pain Technique: Grayscale and duplex Doppler imaging of the pelvis performed utilizing a transabdominal and endovaginal scan. Comparison: None Findings: The size, contour, and configuration of the uterus is within normal limits. The endometrium is uniformly echogenic and normal in thickness. Uterus measures 6.5 x 5 x 3.3 cm. Endometrium is about 1 to 2 mm in thickness. There is a moderate amount of free fluid within the pelvis. The ovaries are not definitely seen or well evaluated on this examination. There is questionable identification of the left ovary transvaginally. IMPRESSION: No specific abnormalities of the uterus identified. Ovaries not evaluated adequately on this study. Ascites
[2019-12-07] MEDS: Metoclopramide 10mg/2ml Inj IVP SCH ×2 (11:40→20:12)
[2019-12-07 12:00] VITALS: BP 125/70
--- NOTE | 2019-12-07 12:08 | Diagnostic Imaging Report ---
Indication: Dyspnea Comparison: 11/29/2019 A single view chest radiograph was obtained. Findings: No definite infiltrate or pulmonary vascular congestion identified. Right hemidiaphragm is slightly elevated. Lung volumes are low. The heart is borderline enlarged. The aorta is mildly enlarged consistent with atherosclerotic vascular disease. The bones are osteopenic. There are thoracic vertebral enthesophytes at multiple levels. Impression: No acute disease
--- NOTE | 2019-12-07 15:45 | History and Physical Report ---
DATE OF ADMISSION: 12/07/2019 DATE AND TIME SEEN: 12/07/2019 at 1 p.m. CONSULTANTS: 1. Luis Green M.D. 2. Eugene Truong M.D. CHIEF COMPLAINT: Vomiting blood x3, GI bleed, metastatic cancer. BRIEF HISTORY: This is a 54-year-old female, who lives at home, presented with above-mentioned diagnoses, admitted to telemetry for further care. Currently, slightly anxious in bed, no complaint. No chest pain or shortness of breath. No nausea, vomiting, or diarrhea. PAST MEDICAL HISTORY: Include weakness, GI bleed, liver metastasis. PAST SURGICAL HISTORY: Appendectomy. ALLERGIES: Denies. SOCIAL HISTORY: Positive smoking. No alcohol. No intravenous drug abuse. FAMILY HISTORY: Noncontributory. PHYSICAL EXAMINATION: GENERAL: Slightly anxious in bed, oriented x3, in no acute distress. VITAL SIGNS: Temperature 97 degrees, pulse 55, respirations 18, blood pressure 124/70. CARDIOVASCULAR: No murmurs. LUNGS: Distant and clear. ABDOMEN: Bowel sounds positive. Nontender. Nondistended. EXTREMITIES: No cyanosis, clubbing, or edema. NEUROLOGIC: The patient moves all extremities, slightly weak. LABORATORY DATA: Labs at this time, show CBC is normal. BMP shows AST 75, alkaline phosphatase 331, albumin 2.8, otherwise BMP is normal. INR is 0.9. PTT is 26. ASSESSMENT: 1. Vomit blood. 2. GI bleed. 3. Metastatic liver cancer. 4. Hypertension. PLAN: 1. Blood pressure and pain control. 2. Dietary followup. 3. GI followup. 4. PT and dietary evaluation. 5. CBC, BMP in the morning. Trav Aragon D.O. DR: GABBY JOB#: [id number] CC:
[2019-12-07 16:00] VITALS: BP 119/62
[2019-12-07] MEDS: Morphine Sulfate 4mg/ml Inj (IV USE ONLY) IVP PRN (20:13)
[2019-12-07] MEDS: Docusate 100mg cap ORAL SCH (21:23)
[2019-12-08] MEDS: HYDROmorphone 1mg/ml Carpuject IVP PRN ×2 (03:11→12:13)
[2019-12-08] MEDS: Metoclopramide 10mg/2ml Inj IVP SCH ×2 (03:11→12:00)
[2019-12-08 06:29] LABS: BASOPHILS % (AUTO) 0.9 % (0.0-2.0); EOSINOPHILS % (AUTO) 1.6 % (0.0-3.0); HEMATOCRIT 35.3 % (37.0-47.0); HEMOGLOBIN 12.3 G/DL (12.0-16.0); LYMPHOCYTES % (AUTO) 22.5 % (20.0-45.0); MEAN CORPUSCULAR VOLUME 92 FL (80-99); MONOCYTES % (AUTO) 9.8 % (1.0-10.0); NEUTROPHILS % (AUTO) 65.2 % (45.0-75.0); PLATELET COUNT 124 K/UL (150-450); RED BLOOD COUNT 3.83 M/UL (4.20-5.40); RED CELL DISTRIBUTION WIDTH 11.9 % (11.6-14.8); WHITE BLOOD COUNT 8.5 K/UL (4.8-10.8)
[2019-12-08 06:31] LABS: ANION GAP 8 mmol/L (5-15); BLOOD UREA NITROGEN 8 mg/dL (7-18); CALCIUM 9.8 MG/DL (8.5-10.1); CARBON DIOXIDE 27 MMOL/L (21-32); CHLORIDE 104 MMOL/L (98-107); CREATININE 0.6 MG/DL (0.55-1.30); POTASSIUM 3.9 MMOL/L (3.5-5.1); SODIUM 139 MMOL/L (136-145)
[2019-12-08 08:00] VITALS: BP 135/74
[2019-12-08] MEDS: Docusate 100mg cap ORAL SCH (08:35)
[2019-12-08] MEDS: Enoxaparin 40mg Inj SUBQ SCH (08:36)
[2019-12-08] MEDS: Morphine Sulfate 4mg/ml Inj (IV USE ONLY) IVP PRN (08:44)
--- NOTE | 2019-12-08 08:56 | General Progress Note ---
Assessment/Plan Problem List: (1) Weakness ICD Codes: R53.1 - Weakness SNOMED: 03634211 (2) Hematemesis ICD Codes: K92.0 - Hematemesis SNOMED: 1740784 Qualifiers: Qualified Codes: K92.0 - Hematemesis (3) Gastrointestinal hemorrhage ICD Codes: K92.2 - Gastrointestinal hemorrhage, unspecified SNOMED: 63568268 Qualifiers: Qualified Codes: K92.2 - Gastrointestinal hemorrhage, unspecified (4) Liver metastasis ICD Codes: C78.7 - Secondary malignant neoplasm of liver and intrahepatic bile duct SNOMED: 48629806 Status: stable, progressing Assessment/Plan: gi heme eval cbc bmp am dc plan if clear by all Subjective Constitutional: Reports: weakness Allergies: Coded Allergies: No Known Allergies (Unverified , 11/29/19) All Systems: reviewed and negative except above Subjective calm in bed Objective Last 24 Hour Vital Signs Date Time Temp Pulse Resp B/P (MAP) Pulse Ox O2 Delivery O2 Flow Rate FiO2 12/08/19 08:00 98.2 62 18 135/74 (94) 98 12/08/19 04:00 70 12/08/19 03:41 98.1 12/08/19 00:00 62 12/07/19 21:00 Room Air 12/07/19 20:43 98.1 12/07/19 16:00 98.1 64 18 119/62 (81) 96 12/07/19 16:00 63 12/07/19 12:00 97.7 55 18 125/70 (88) 98 12/07/19 12:00 58 12/07/19 09:00 Room Air Intake and Output 12/07/19 12/08/19 19:00 07:00 # Voids 1 # Bowel Movements 1 Laboratory Tests 12/08/19 06:00: White Blood Count 8.5, Red Blood Count 3.83L, Hemoglobin 12.3, Hematocrit 35.3L , Mean Corpuscular Volume 92, Mean Corpuscular Hemoglobin 32.1H, Mean Corpuscular Hemoglobin Concent 34.8, Red Cell Distribution Width 11.9, Platelet Count 124L, Mean Platelet Volume 10.9H, Neutrophils (%) (Auto) 65.2, Lymphocytes (%) (Auto) 22.5, Monocytes (%) (Auto) 9.8, Eosinophils (%) (Auto) 1.6, Basophils (%) (Auto) 0.9, Sodium Level 139, Potassium Level 3.9, Chloride Level 104, Carbon Dioxide Level 27, Anion Gap 8, Blood Urea Nitrogen 8, Creatinine 0.6, Estimat Glomerular Filtration Rate > 60, Glucose Level 126H, Calcium Level 9.8 Height (Feet): 5 Height (Inches): 1.00 Weight (Pounds): 145 General Appearance: alert EENT: normal ENT inspection Neck: normal alignment Cardiovascular: normal peripheral pulses, normal rate, regular rhythm Respiratory/Chest: chest wall non-tender, lungs clear, normal breath sounds Abdomen: normal bowel sounds, non tender, soft Extremities: normal inspection Edema: no edema noted Arm (L), no edema noted Arm (R), no edema noted Leg (L), no edema noted Leg (R), no edema noted Pedal (L), no edema noted Pedal (R), no edema noted Generalized Neurologic: responsive, motor weakness Skin: normal pigmentation, warm/dry Trav Aragon DO Dec 08, 2019 08:56
--- NOTE | 2019-12-08 10:37 | Hematology/Onc Progress Note ---
Assessment/Plan Assessment/Plan Assessment and Recs # Stage iv likely pancreatic origin -- with disseminated malignancy, with multiple liver lesions, peripancreatic, lesser sac, and retroperitoneal necrotic lymphadenopathy, anterolateral expansile right fifth rib lesion. Lesion in the lungs are of less certain significance but could also represent small metastatic deposit. Etiology not definitely demonstrated 7 x 8 x 5.6 cm left lobe liver lesion, probably a large necrotic metastasis given the above findings, but demonstrates partial fluid attenuation and could represent a separate process such as a complex cyst or liver abscess --> her risk factor is smoking --> biopsy done on last admission shows likely pancreatic origin (is not lung or gi), will r/o ovarian as well --> will need pet scan as outpatient --> DISCUSSED thoroughly with son, and sister --> will need to have insurance approved prior to chemo as outpatient # Anemia of chronic disease due to underlying chronic medical issues, multifactorial v Gi bleed --> Anemia workup has been ordered, rule out gi bleed --> No evidence of hemolysis is noted, peripheral smear has been reviewed. --> Hgb goal >7. Transfuse prn. --> Epogen or iron at this time is not particularly indicated --> Medications have been reviewed --> hgb trend: 11.4-->13-->12.3 --> low threshold for gi evaluation in case has occult + # Thrombocytopenia - potential causes multifactorial, evaluate liver and viral etiologies to begin, also could be related to underlying medications patient has received. --> Hep panel and HIV both negative --> ct abd positive for liver lesion and hsm --> Peripheral smear ordered to evaluate for blasts /schistocytes --> abx and other meds have been reviewed --> ok for ppx if plt >50k w/ either heparin or lovenox --> plt trend: 117k-->134-->124 # Abdominal pain --> likely related to Metastasis # Liver metastasis # Weakness # Pain management # SW consult for Med-iCAL application Appreciate consultation and milly RN Subjective Allergies: Coded Allergies: No Known Allergies (Unverified , 11/29/19) Subjective 3/4: awake and alert, on tele, no overnight events, room air Objective Objective Current Medications Medications (Trade) Dose Ordered Sig/Deb Route PRN Reason Start Time Stop Time Status Last Admin Dose Admin Acetaminophen (Tylenol) 650 mg Q4H PRN ORAL Mild Pain (Pain Scale 1-3) 12/07/19 06:00 01/06/20 05:59 12/07/19 14:15 Bisacodyl (Dulcolax) 10 mg BIDPRN PRN RECTAL Constipation 12/07/19 21:00 01/06/20 20:59 12/08/19 03:11 Dextrose (Dextrose 50%) 25 ml Q30M PRN IV Hypoglycemia 12/07/19 06:00 01/06/20 05:59 Dextrose (Dextrose 50%) 50 ml Q30M PRN IV Hypoglycemia 12/07/19 06:00 01/06/20 05:59 Dextrose/Sodium Chloride 1,000 ml @ 75 mls/hr DAILY IV 12/07/19 06:00 01/06/20 05:59 12/07/19 20:21 Docusate Sodium (Colace) 100 mg TWICE A DAY ORAL 12/07/19 21:00 01/06/20 20:59 12/08/19 08:35 Enoxaparin Sodium (Lovenox) 40 mg DAILY SUBQ 12/07/19 09:00 01/06/20 08:59 Hydromorphone HCl (Dilaudid) 1 mg Q8H PRN IVP Moderate Pain (Pain Scale 4-6) 12/07/19 06:00 12/14/19 05:59 12/08/19 03:11 Iohexol (OMNIPAQUE-300 100ml) 100 ml NOW PRN INJ Radiology Procedure 12/07/19 01:00 12/09/19 00:54 Lorazepam (Ativan) 1 mg Q4H PRN ORAL For Anxiety 12/07/19 06:00 12/14/19 05:59 Metoclopramide HCl (Reglan) 5 mg Q8H IVP 12/07/19 11:30 01/06/20 11:29 12/08/19 03:11 Morphine Sulfate (Morphine Sulfate) 2 mg Q8H PRN IVP Severe Pain (Pain Scale 7-10) 12/07/19 06:00 12/14/19 05:59 12/08/19 08:44 Ondansetron HCl (Zofran) 4 mg Q6H PRN IVP Nausea & Vomiting 12/07/19 06:00 01/06/20 05:59 Pantoprazole (Protonix) 40 mg DAILY ORAL 12/08/19 09:00 01/07/20 08:59 12/08/19 08:36 Last 24 Hour Vital Signs Date Time Temp Pulse Resp B/P (MAP) Pulse Ox O2 Delivery O2 Flow Rate FiO2 12/08/19 08:00 98.2 62 18 135/74 (94) 98 12/08/19 04:00 70 12/08/19 03:41 98.1 12/08/19 00:00 62 12/07/19 21:00 Room Air 12/07/19 20:43 98.1 12/07/19 16:00 98.1 64 18 119/62 (81) 96 12/07/19 16:00 63 12/07/19 12:00 97.7 55 18 125/70 (88) 98 12/07/19 12:00 58 12/07/19 09:00 Room Air 12/07/19 08:00 54 12/07/19 08:00 98.0 57 18 125/67 (86) 97 12/07/19 06:36 97.9 12/07/19 06:35 97.9 12/07/19 04:30 Room Air 12/07/19 04:00 74 12/07/19 04:00 74 12/07/19 03:00 97.9 64 20 136/80 98 Room Air 12/07/19 02:09 97.9 12/07/19 02:08 97.9 62 22 140/78 96 Room Air 12/07/19 01:10 97.9 67 20 149/76 96 Room Air 12/07/19 01:10 67 20 Room Air 12/07/19 00:46 97.9 67 20 149/76 (100) 96 Room Air Intake and Output 12/07/19 12/08/19 19:00 07:00 # Voids 1 # Bowel Movements 1 Labs Test 12/07/19 01:10 12/07/19 08:00 12/08/19 06:00 White Blood Count 9.3 K/UL (4.8-10.8) 7.8 K/UL (4.8-10.8) 8.5 K/UL (4.8-10.8) Red Blood Count 4.19 M/UL (4.20-5.40) 3.78 M/UL (4.20-5.40) 3.83 M/UL (4.20-5.40) Hemoglobin 13.6 G/DL (12.0-16.0) 12.2 G/DL (12.0-16.0) 12.3 G/DL (12.0-16.0) Hematocrit 38.3 % (37.0-47.0) 34.9 % (37.0-47.0) 35.3 % (37.0-47.0) Mean Corpuscular Volume 91 FL (80-99) 92 FL (80-99) 92 FL (80-99) Mean Corpuscular Hemoglobin 32.4 PG (27.0-31.0) 32.2 PG (27.0-31.0) 32.1 PG (27.0-31.0) Mean Corpuscular Hemoglobin Concent 35.5 G/DL (32.0-36.0) 34.9 G/DL (32.0-36.0) 34.8 G/DL (32.0-36.0) Red Cell Distribution Width 11.6 % (11.6-14.8) 11.8 % (11.6-14.8) 11.9 % (11.6-14.8) Platelet Count 134 K/UL (150-450) 115 K/UL (150-450) 124 K/UL (150-450) Mean Platelet Volume 10.9 FL (6.5-10.1) 12.6 FL (6.5-10.1) 10.9 FL (6.5-10.1) Neutrophils (%) (Auto) 60.3 % (45.0-75.0) 58.0 % (45.0-75.0) 65.2 % (45.0-75.0) Lymphocytes (%) (Auto) 26.9 % (20.0-45.0) 28.9 % (20.0-45.0) 22.5 % (20.0-45.0) Monocytes (%) (Auto) 9.8 % (1.0-10.0) 9.7 % (1.0-10.0) 9.8 % (1.0-10.0) Eosinophils (%) (Auto) 2.2 % (0.0-3.0) 2.6 % (0.0-3.0) 1.6 % (0.0-3.0) Basophils (%) (Auto) 0.9 % (0.0-2.0) 0.8 % (0.0-2.0) 0.9 % (0.0-2.0) Prothrombin Time 10.0 SEC (9.30-11.50) Prothromb Time International Ratio 0.9 (0.9-1.1) Activated Partial Thromboplast Time 26 SEC (23-33) Sodium Level 141 MMOL/L (136-145) 141 MMOL/L (136-145) 139 MMOL/L (136-145) Potassium Level 3.8 MMOL/L (3.5-5.1) 4.3 MMOL/L (3.5-5.1) 3.9 MMOL/L (3.5-5.1) Chloride Level 104 MMOL/L (98-107) 105 MMOL/L (98-107) 104 MMOL/L (98-107) Carbon Dioxide Level 28 MMOL/L (21-32) 29 MMOL/L (21-32) 27 MMOL/L (21-32) Anion Gap 9 mmol/L (5-15) 7 mmol/L (5-15) 8 mmol/L (5-15) Blood Urea Nitrogen 14 mg/dL (7-18) 11 mg/dL (7-18) 8 mg/dL (7-18) Creatinine 0.8 MG/DL (0.55-1.30) 0.7 MG/DL (0.55-1.30) 0.6 MG/DL (0.55-1.30) Estimat Glomerular Filtration Rate > 60 mL/min (>60) > 60 mL/min (>60) > 60 mL/min (>60) Glucose Level 112 MG/DL (74-106) 104 MG/DL (74-106) 126 MG/DL (74-106) Calcium Level 10.2 MG/DL (8.5-10.1) 9.7 MG/DL (8.5-10.1) 9.8 MG/DL (8.5-10.1) Total Bilirubin 0.6 MG/DL (0.2-1.0) 0.5 MG/DL (0.2-1.0) Aspartate Amino Transf (AST/SGOT) 89 U/L (15-37) 75 U/L (15-37) Alanine Aminotransferase (ALT/SGPT) 72 U/L (12-78) 61 U/L (12-78) Alkaline Phosphatase 388 U/L (46-116) 331 U/L (46-116) Total Protein 8.0 G/DL (6.4-8.2) 7.0 G/DL (6.4-8.2) Albumin 3.2 G/DL (3.4-5.0) 2.8 G/DL (3.4-5.0) Globulin 4.8 g/dL 4.2 g/dL Albumin/Globulin Ratio 0.7 (1.0-2.7) 0.7 (1.0-2.7) Lipase 165 U/L (73-393) Height (Feet): 5 Height (Inches): 1.00 Weight (Pounds): 145 Objective Physical Exam: Vitals: reviewed General: NAD HEENT: nc, at Neck: supple Chest: clear breath sounds bilaterally Abdomen: soft, nontender, nd Extremities: no cce, normal range of motion Neuro: alert and oriented Eugene Truong MD Dec 08, 2019 10:37
--- NOTE | 2019-12-08 10:56 | GI Progress Note ---
Assessment/Plan Problems: (1) Hematemesis ICD Codes: K92.0 - Hematemesis SNOMED: 2300022 Qualifiers: Qualified Codes: K92.0 - Hematemesis (2) Gastrointestinal hemorrhage ICD Codes: K92.2 - Gastrointestinal hemorrhage, unspecified SNOMED: 70670367 Qualifiers: Qualified Codes: K92.2 - Gastrointestinal hemorrhage, unspecified (3) Liver metastasis ICD Codes: C78.7 - Secondary malignant neoplasm of liver and intrahepatic bile duct SNOMED: 31865309 (4) Weakness ICD Codes: R53.1 - Weakness SNOMED: 26714643 Status: stable Status Narrative Discussed with Dr. Green. Assessment/Plan Stable H&H at this time, will monitor for any additional signs or symptoms of any GI bleeds. We will consider endoscopy only if emergent. Okay to advance the patient's diet We will start patient on a PPI twice daily Monitor H&H, as needed transfusions We will add low-dose Reglan ATC for GI motility Zofran PRN Follow-up oncology recommendations We will follow on a daily basis with any additional recommendations dc planning The patient was seen and examined at bedside and all new and available data was reviewed in the patients chart. I agree with the above findings, impression and plan. (Patient seen earlier today. Signature stamp does not reflect patient encounter time.). - Luis Green MD Subjective Gastrointestinal/Abdominal: Reports: no symptoms Objective Last 24 Hour Vital Signs Date Time Temp Pulse Resp B/P (MAP) Pulse Ox O2 Delivery O2 Flow Rate FiO2 12/08/19 08:00 98.2 62 18 135/74 (94) 98 12/08/19 04:00 70 12/08/19 03:41 98.1 12/08/19 00:00 62 12/07/19 21:00 Room Air 12/07/19 20:43 98.1 12/07/19 16:00 98.1 64 18 119/62 (81) 96 12/07/19 16:00 63 12/07/19 12:00 97.7 55 18 125/70 (88) 98 12/07/19 12:00 58 Intake and Output 12/07/19 12/08/19 19:00 07:00 # Voids 1 # Bowel Movements 1 Laboratory Tests Test 12/08/19 06:00 White Blood Count 8.5 K/UL (4.8-10.8) Red Blood Count 3.83 M/UL (4.20-5.40) L Hemoglobin 12.3 G/DL (12.0-16.0) Hematocrit 35.3 % (37.0-47.0) L Mean Corpuscular Volume 92 FL (80-99) Mean Corpuscular Hemoglobin 32.1 PG (27.0-31.0) H Mean Corpuscular Hemoglobin Concent 34.8 G/DL (32.0-36.0) Red Cell Distribution Width 11.9 % (11.6-14.8) Platelet Count 124 K/UL (150-450) L Mean Platelet Volume 10.9 FL (6.5-10.1) H Neutrophils (%) (Auto) 65.2 % (45.0-75.0) Lymphocytes (%) (Auto) 22.5 % (20.0-45.0) Monocytes (%) (Auto) 9.8 % (1.0-10.0) Eosinophils (%) (Auto) 1.6 % (0.0-3.0) Basophils (%) (Auto) 0.9 % (0.0-2.0) Sodium Level 139 MMOL/L (136-145) Potassium Level 3.9 MMOL/L (3.5-5.1) Chloride Level 104 MMOL/L (98-107) Carbon Dioxide Level 27 MMOL/L (21-32) Anion Gap 8 mmol/L (5-15) Blood Urea Nitrogen 8 mg/dL (7-18) Creatinine 0.6 MG/DL (0.55-1.30) Estimat Glomerular Filtration Rate > 60 mL/min (>60) Glucose Level 126 MG/DL (74-106) H Calcium Level 9.8 MG/DL (8.5-10.1) Height (Feet): 5 Height (Inches): 1.00 Weight (Pounds): 145 General Appearance: WD/WN, no apparent distress, alert Cardiovascular: normal rate Respiratory/Chest: normal breath sounds, no respiratory distress Abdominal Exam: normal bowel sounds, non tender, soft Extremities: normal range of motion, non-tender Melony Mcclain SEATING CAPTAIN Dec 08, 2019 10:56
[2019-12-08 12:00] VITALS: BP 134/80
--- NOTE | 2019-12-09 13:36 | Discharge Summary ---
Discharge Summary Discharge Summary _ DATE OF ADMISSION: 12/07/2019 DATE OF DISCHARGE: 12/08/2019 DISCHARGED BY: REASON FOR ADMISSION: [age] years old female with past medical history of hypertension, liver cancer, presented with hematemesis x3 with associated nausea and achy abdominal pain. She denied fever and chills. Upon evaluation vital signs were stable Laboratory work-up revealed no leukocytosis, stable hemoglobin , hematocrit.. Platelet count 134. Stable electrolytes and renal parameters. Glucose 112. AST 89 , ALT 72. Lipase 165. EKG revealed sinus rhythm , no acute ischemic changes; left axis deviation. Chest x-ray revealed no acute cardiopulmonary pathology. CT scan of the abdomen and pelvis demonstrated evidence of widespread metastatic neoplasm with extensive involvement of the liver, multiple lung nodules, evidence of bony metastasis, retroperitoneal and mesenteric adenopathy. No evidence of bowel obstruction. In emergency department patient received antiemetic, started on Protonix, typed and screened and admitted for further management. CONSULTANTS: GI specialist Dr. Green chiropractic care/oncologist Dr. Truong [facility] COURSE: Patient admitted to telemetry floor. Patient initially was kept n.p.o. on IV fluids. GI and oncologist followed. Hemoglobin and hematocrit were closely monitored and remained stable ; prior to discharge hemoglobin 12.3, hematocrit 35.3. Supportive care provided. Antiemetic provided : Zofran as needed and Reglan [id number] to improve motility. Bowel regimen instituted. GI prophylaxis with PPI twice a day continued. Pain management was addressed as needed. GI recommended to consider endoscopy only if significant drop of hemoglobin/ hematocrit or in emergency. Patient slowly started on diet and was advanced as tolerated. Pelvic/transvaginal ultrasound revealed no specific abnormalities of the uterus. Ovaries were not visualized adequately. Ascites noted. Thrombocytopenia was multifactorial likely related Hepatitis panel and HIV test were negative on prior admission. Thrombocytopenia voiced likely related to malignancy with liver metastasis. Prior to discharge platelets 124 . 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 Biopsy was done on prior admission and showed likely pancreatic origin . Patient will need a PET scan as an outpatient. Oncologist discussed thoroughly a further plan of care as outpatient with the patient's son and her sister. Patient will need to have insurance approved prior to start chemotherapy as outpatient. Patient was able to tolerate diet. No further hematemesis. Patient was ready for discharge home. Patient will need outpatient PET scan. Due to rapid and unexpected improvement in patient condition, patient was discharged in 1 day. 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 DISCHARGE INSTRUCTIONS: Patient was discharged home. Follow-up with a primary care provider in 1 week. I have been assigned to dictate discharge summary for this account. I was not involved in the patient's management. Kalpana Ford NP Dec 09, 2019 13:36
== END 2019-12-08 13:31 | disposition home or self-care (01) | DRG 253 ==
LOC: EMR 01:01 → 2E 01:51 → EDBEDREQ 01:57
DX: K92.2 Gastrointestinal hemorrhage, unspecified (principal); C25.9 Malignant neoplasm of pancreas, unspecified; C77.2 Secondary and unspecified malignant neoplasm of intra-abdominal lymph nodes; C78.7 Secondary malignant neoplasm of liver and intrahepatic bile duct; C78.00 Secondary malignant neoplasm of unspecified lung; C79.51 Secondary malignant neoplasm of bone; D69.59 Other secondary thrombocytopenia; G89.3 Neoplasm related pain (acute) (chronic); I10 Essential (primary) hypertension; E78.5 Hyperlipidemia, unspecified; D63.8 Anemia in other chronic diseases classified elsewhere
CPT/HCPCS: 36415; 71045; 74177; 76830; 76856; 80048; 80053; 83690; 85025; 85610; 85730; 86850; 86900; 86901; 87081; 93005; 96365; 96375; 99291; J2405; J2765; J7030

== ENCOUNTER 2019-12-09 13:26 | Inpatient (IN) | payer MEDICAID ==
[~2019-12-09] VITALS: Ht 154.9 cm; Wt 70.8 kg
[~2019-12-09 13:26] MED LIST: LOSARTAN POTASS25 MG ORAL; LOSARTAN POTASS50 MG ORAL; NAPROXEN500 M2 ORAL; TRAMADOL HCL50 MG ORAL; TRAZODONE HCL50 MG ORAL
--- NOTE | 2019-12-09 13:40 | NUR ---
ED Nurse Note: Patient walked into ED c/o constipation x 3 days, right-sided abdominal pain, and n/v. Per patient's brother, the patient has thrown up moderate amount of blood. Patient was sent to ED d/t constipation x 3 days. Patient AxO x 4, no s/s of acute distress. 20 g IV started in left AC. Patient on the phototypesetting equipment monitor, blood sent to lab. Patient unable to provide urine sample at this time.
[2019-12-09] MEDS ORDERED: Omnipaque-300 100ml vial INJ PRN (13:45)
[2019-12-09] MEDS ORDERED: Magnesium Citrate Liq Btl ORAL ONE (13:45)
--- NOTE | 2019-12-09 13:52 | Emergency Room Report ---
History of Present Illness General Chief Complaint: Abdominal Pain Source: Patient Present Illness HPI 54-year-old female history abdominal distention x3 days, no aggravating leaving factors severity is moderate, constant she endorses diffuse abdominal pain patient was sent in by her primary care doctor for evaluation and treatment she denies any fevers or chills no dysuria patient presents for evaluation Allergies: Coded Allergies: No Known Allergies (Unverified , 11/29/19) Patient History Past Medical History: see triage record Reviewed Nursing Documentation: PMH: Agreed; PSxH: Agreed Nursing Documentation-PMH Past Medical History: No History, Except For Hx Hypertension: Yes Hx Cancer: Yes Hx Gastrointestinal Problems: Yes - ABDOMINAL PAIN Hx Neurological Problems: No Review of Systems All Other Systems: negative except mentioned in HPI Physical Exam Vital Signs Date Time Temp Pulse Resp B/P (MAP) Pulse Ox O2 Delivery O2 Flow Rate FiO2 12/09/19 13:36 97.9 70 16 124/62 (82) 95 Room Air Sp02 EP Interpretation: reviewed, normal General Appearance: well appearing, no apparent distress, alert Head: normocephalic, atraumatic Eyes: bilateral eye PERRL, bilateral eye EOMI ENT: uvula midline, moist mucus membranes Neck: supple, thyroid normal, supple/symm/no masses Respiratory: lungs clear, no respiratory distress, no retraction, no accessory muscle use Cardiovascular #1: normal peripheral pulses, regular rate, rhythm, no edema, no gallop, no murmur Gastrointestinal: no guarding, no rebound, distended Musculoskeletal: normal inspection Neurologic: alert, oriented x3 Psychiatric: mood/affect normal Skin: no rash, warm/dry Medical Decision Making Diagnostic Impression: Primary Impression: Weakness Additional Impression: Metastatic cancer ER Course 54-year-old female presents with abdominal pain, generalized weakness Plan for admission for work-up of her metastatic cancer cannot be complete as an outpatient Dr. Colon to follow Patient admitted to Dr. Hassan Laboratory Tests Test 12/09/19 13:50 White Blood Count 8.9 K/UL (4.8-10.8) Red Blood Count 3.98 M/UL (4.20-5.40) L Hemoglobin 12.9 G/DL (12.0-16.0) Hematocrit 36.7 % (37.0-47.0) L Mean Corpuscular Volume 92 FL (80-99) Mean Corpuscular Hemoglobin 32.3 PG (27.0-31.0) H Mean Corpuscular Hemoglobin Concent 35.0 G/DL (32.0-36.0) Red Cell Distribution Width 11.7 % (11.6-14.8) Platelet Count 109 K/UL (150-450) L Mean Platelet Volume 11.1 FL (6.5-10.1) H Neutrophils (%) (Auto) 67.7 % (45.0-75.0) Lymphocytes (%) (Auto) 20.7 % (20.0-45.0) Monocytes (%) (Auto) 9.1 % (1.0-10.0) Eosinophils (%) (Auto) 1.6 % (0.0-3.0) Basophils (%) (Auto) 0.9 % (0.0-2.0) Prothrombin Time 10.1 SEC (9.30-11.50) Prothrombin Time INR 0.9 (0.9-1.1) Activated Partial Thromboplast Time 26 SEC (23-33) Sodium Level 138 MMOL/L (136-145) Potassium Level 3.8 MMOL/L (3.5-5.1) Chloride Level 102 MMOL/L (98-107) Carbon Dioxide Level 29 MMOL/L (21-32) Anion Gap 7 mmol/L (5-15) Blood Urea Nitrogen 10 mg/dL (7-18) Creatinine 0.6 MG/DL (0.55-1.30) Estimate Glomerular Filtration Rate > 60 mL/min (>60) Glucose Level 133 MG/DL (74-106) H Calcium Level 10.0 MG/DL (8.5-10.1) Total Bilirubin 0.6 MG/DL (0.2-1.0) Aspartate Amino Transferase (AST) 101 U/L (15-37) H Alanine Aminotransferase (ALT) 63 U/L (12-78) Alkaline Phosphatase 349 U/L (46-116) H Total Protein 7.5 G/DL (6.4-8.2) Albumin 2.8 G/DL (3.4-5.0) L Globulin 4.7 g/dL Albumin/Globulin Ratio 0.6 (1.0-2.7) L Lipase 102 U/L (73-393) EKG Diagnostic Results EKG Time: 14:13 EP Interpretation: NSR, rate 63, QTc 413, no acute ST elevations, left axis deviation Rhythm Strip Diag. Results Rhythm Strip Time: 16:17 EP Interpretation: yes Rate: 63 Rhythm: NSR, no PVC's, no ectopy CT/MRI/US Diagnostic Results CT/MRI/US Diagnostic Results : Impression Procedure: CT Chest Abdomen Pelvis w/Cont INDICATION: History of malignancy. Abdominal pain and distention. Chest pain. TECHNIQUE: Continuous helical transaxial imaging of the chest, abdomen and pelvis was obtained from the lung bases to the pubic symphysis during intravenous contrast administration. Multiple phases of enhancement obtained. Coronal 2-D reformats were also obtained. Study obtained in a Siemens sensation [address] Automatic Exposure Control was utilized. Total Dose length Product (DLP): 496.[address] Dose Index Volume (CTDIvol): 58.1 mGy COMPARISON: CT abdomen pelvis 12/07/2019 FINDINGS: CT CHEST: There are multiple tiny nodules scattered throughout the lungs. These nodules are small measuring less than 5 mm. Nevertheless given the other findings the abdomen described, the nodules could certainly represent metastatic neoplasm. Again there is evidence of a destructive bony lesion involving the right fifth rib. 1.1 x 1.6 cm right hilar node demonstrated. There is a small hiatal hernia. The axilla appear clear. There is heterogeneity and some prominence of the thyroid gland noted. CT ABDOMEN & PELVIS: As seen previously, there is extensive low-attenuation involving the liver with multiple nodules demonstrated consistent metastatic neoplasm. The largest focus is in the dome of the liver where there is a confluent lobulated area measuring about 8 cm. There is no significant change compared to the examination from a few days earlier. Again there is ascites demonstrated. The degree of ascites is mild. Pericaval and periaortic lymphadenopathy, celiac lymphadenopathy and scattered mesenteric nodes noted consistent metastatic neoplasm. There is no free air. There is no evidence of bowel obstruction. Other solid organs are unchanged in appearance. There is no hydronephrosis. Abnormal bones with the areas of lytic change as well as some sclerotic foci noted within the several of the vertebra in the lumbar and thoracic spine. Findings consistent with metastatic neoplasm. IMPRESSION: Evidence of widespread metastatic neoplasm involving the lungs, liver, mesentery and retroperitoneum and bones. Mild ascites. No change Other incidental findings as described above The CT scanner at [facility] is accredited by the [employer] and the scans are performed using dose optimization techniques as appropriate to a performed exam including Automatic Exposure control. Dictated By: Claude Higgins MD Electronically Signed By: Claude Higgins MD Signed Date/Time 12/09/19 8603 CC: Vince Pickering MD Last Vital Signs Date Time Temp Pulse Resp B/P (MAP) Pulse Ox O2 Delivery O2 Flow Rate FiO2 12/09/19 13:36 97.9 70 16 124/62 (82) 95 Room Air Disposition: ADMITTED INPATIENT Condition: Stable Vince Pickering MD Dec 09, 2019 13:52
[2019-12-09 13:53] VITALS: BP 124/62
[2019-12-09 14:21] LABS: INR 0.9 (0.9-1.1)
[2019-12-09 14:24] LABS: ANION GAP 7 mmol/L (5-15); BLOOD UREA NITROGEN 10 mg/dL (7-18); CARBON DIOXIDE 29 MMOL/L (21-32); CHLORIDE 102 MMOL/L (98-107); CREATININE 0.6 MG/DL (0.55-1.30); POTASSIUM 3.8 MMOL/L (3.5-5.1); SODIUM 138 MMOL/L (136-145)
[2019-12-09 14:28] LABS: ALANINE AMINOTRANSFERASE 63 U/L (12-78); ALBUMIN 2.8 G/DL (3.4-5.0); ALBUMIN/GLOBULIN RATIO 0.6 (1.0-2.7); ALKALINE PHOSPHATASE 349 U/L (46-116); ASPARTATE AMINO TRANSFERASE 101 U/L (15-37); BILIRUBIN,TOTAL 0.6 MG/DL (0.2-1.0)
[2019-12-09 14:29] LABS: BASOPHILS % (AUTO) 0.9 % (0.0-2.0); EOSINOPHILS % (AUTO) 1.6 % (0.0-3.0); HEMATOCRIT 36.7 % (37.0-47.0); HEMOGLOBIN 12.9 G/DL (12.0-16.0); LYMPHOCYTES % (AUTO) 20.7 % (20.0-45.0); MEAN CORPUSCULAR VOLUME 92 FL (80-99); MONOCYTES % (AUTO) 9.1 % (1.0-10.0); NEUTROPHILS % (AUTO) 67.7 % (45.0-75.0); PLATELET COUNT 109 K/UL (150-450); RED BLOOD COUNT 3.98 M/UL (4.20-5.40); RED CELL DISTRIBUTION WIDTH 11.7 % (11.6-14.8); WHITE BLOOD COUNT 8.9 K/UL (4.8-10.8)
--- NOTE | 2019-12-09 14:34 | NUR ---
ED Nurse Note: BROTHER- JHONATAN RANDOBIE MARYAM-SON
[2019-12-09 16:05] VITALS: BP 126/67
--- NOTE | 2019-12-09 16:36 | Diagnostic Imaging Report ---
INDICATION: History of malignancy. Abdominal pain and distention. Chest pain. TECHNIQUE: Continuous helical transaxial imaging of the chest, abdomen and pelvis was obtained from the lung bases to the pubic symphysis during intravenous contrast administration. Multiple phases of enhancement obtained. Coronal 2-D reformats were also obtained. Study obtained in a Siemens sensation [address] Automatic Exposure Control was utilized. Total Dose length Product (DLP): 496.[address] Dose Index Volume (CTDIvol): 58.1 mGy COMPARISON: CT abdomen pelvis 12/07/2019 FINDINGS: CT CHEST: There are multiple tiny nodules scattered throughout the lungs. These nodules are small measuring less than 5 mm. Nevertheless given the other findings the abdomen described, the nodules could certainly represent metastatic neoplasm. Again there is evidence of a destructive bony lesion involving the right fifth rib. 1.1 x 1.6 cm right hilar node demonstrated. There is a small hiatal hernia. The axilla appear clear. There is heterogeneity and some prominence of the thyroid gland noted. CT ABDOMEN & PELVIS: As seen previously, there is extensive low-attenuation involving the liver with multiple nodules demonstrated consistent metastatic neoplasm. The largest focus is in the dome of the liver where there is a confluent lobulated area measuring about 8 cm. There is no significant change compared to the examination from a few days earlier. Again there is ascites demonstrated. The degree of ascites is mild. Pericaval and periaortic lymphadenopathy, celiac lymphadenopathy and scattered mesenteric nodes noted consistent metastatic neoplasm. There is no free air. There is no evidence of bowel obstruction. Other solid organs are unchanged in appearance. There is no hydronephrosis. Abnormal bones with the areas of lytic change as well as some sclerotic foci noted within the several of the vertebra in the lumbar and thoracic spine. Findings consistent with metastatic neoplasm. IMPRESSION: Evidence of widespread metastatic neoplasm involving the lungs, liver, mesentery and retroperitoneum and bones. Mild ascites. No change Other incidental findings as described above The CT scanner at [facility] is accredited by the [employer] and the scans are performed using dose optimization techniques as appropriate to a performed exam including Automatic Exposure control.
[2019-12-09 18:05] VITALS: BP 161/74
--- NOTE | 2019-12-09 18:05 | NUR ---
NURSE NOTES: Patient arrived on unit. Stable. C/O abdominal discomfort. Breathing is even, SOB noted on exertion. VSS. Skin is c/d/i. Patient oriented to room, unit, and call light. Patient instructed to use call light for assistance, verbalized understanding. Patient's belongings accounted for. Patient is in be in locked and lowest position with call light within reach. All safety measures provided. Will continue to monitor.
--- NOTE | 2019-12-09 18:30 | NUR ---
NURSE NOTES: Left message for Dr. Hassan (covering) regarding admission notification and orders. Awaiting response.
[2019-12-09] MEDS ORDERED: traMADol 50mg tab ORAL PRN (18:45)
--- NOTE | 2019-12-09 19:30 | NUR ---
HAND-OFF: Report given to Lashay FELIPE. Patient is stable. Admission orders read back and endorsed to RN.
--- NOTE | 2019-12-09 19:35 | NUR ---
NURSE NOTES: Received report from DESTINEE Osborne. Pt is awake, lying semi-chun's; comfortably resting. Family at bedside. No signs of acute distress noted. Pt denies any pain at this time. Pt is mainly Egyptian speaking. Will get an travel accommodations rater as soon as possible. AOx4; able to make needs known. Checked IV site; patent and flushed. No erythema, bleeding, or infiltration noted. Bed at lowest position. Brakes on. Siderails up x2. Call light within reach. Will continue to monitor.
[2019-12-09] MEDS: TraZODone 50mg tab ORAL SCH (21:07)
[2019-12-09] MEDS: HYDROcodone/Acetamin 5/325 tab ORAL PRN (22:52)
[2019-12-10] VITALS (17 sets, daily range): BP systolic 117–145; BP diastolic 53–86
--- NOTE | 2019-12-10 06:27 | Consultation ---
History of Present Illness General Chief Complaint: Abdominal Pain Present Illness Allergies: Coded Allergies: No Known Allergies (Unverified , 11/29/19) Medication History Scheduled Losartan Potassium* (Losartan Potassium*), 25 MG ORAL DAILY, (Reported) Naproxen* (Naproxen*), 500 MG ORAL TWICE A DAY, (Reported) Trazodone Hcl* (Desyrel*), 50 MG ORAL BEDTIME, (Reported) Scheduled PRN Losartan Potassium* (Losartan Potassium*), 50 MG ORAL BID PRN for For High Blood Pressure, (Reported) Tramadol Hcl* (Ultram*), 50 MG ORAL BID PRN for For Pain, (Reported) Patient History Healthcare decision maker Resuscitation status Do Not Resuscitate Advanced Directive on File Physical Exam Last 24 Hour Vital Signs Date Time Temp Pulse Resp B/P (MAP) Pulse Ox O2 Delivery O2 Flow Rate FiO2 12/10/19 04:00 98.0 65 21 119/64 (82) 93 12/10/19 00:00 98.2 69 20 121/58 (79) 95 12/09/19 21:00 Room Air 12/09/19 18:18 Room Air 12/09/19 18:05 97.8 61 20 161/74 (103) 98 12/09/19 16:05 97.7 74 18 126/67 96 Room Air 12/09/19 13:53 97.9 70 16 124/62 95 Room Air 12/09/19 13:53 70 16 Room Air 12/09/19 13:36 97.9 70 16 124/62 (82) 95 Room Air Laboratory Tests Test 12/09/19 13:50 12/10/19 05:20 White Blood Count 8.9 K/UL (4.8-10.8) Pending Red Blood Count 3.98 M/UL (4.20-5.40) L Pending Hemoglobin 12.9 G/DL (12.0-16.0) Pending Hematocrit 36.7 % (37.0-47.0) L Pending Mean Corpuscular Volume 92 FL (80-99) Pending Mean Corpuscular Hemoglobin 32.3 PG (27.0-31.0) H Pending Mean Corpuscular Hemoglobin Concent 35.0 G/DL (32.0-36.0) Pending Red Cell Distribution Width 11.7 % (11.6-14.8) Pending Platelet Count 109 K/UL (150-450) L Pending Mean Platelet Volume 11.1 FL (6.5-10.1) H Pending Neutrophils (%) (Auto) 67.7 % (45.0-75.0) Pending Lymphocytes (%) (Auto) 20.7 % (20.0-45.0) Pending Monocytes (%) (Auto) 9.1 % (1.0-10.0) Pending Eosinophils (%) (Auto) 1.6 % (0.0-3.0) Pending Basophils (%) (Auto) 0.9 % (0.0-2.0) Pending Prothrombin Time 10.1 SEC (9.30-11.50) Prothromb Time International Ratio 0.9 (0.9-1.1) Activated Partial Thromboplast Time 26 SEC (23-33) Sodium Level 138 MMOL/L (136-145) Pending Potassium Level 3.8 MMOL/L (3.5-5.1) Pending Chloride Level 102 MMOL/L (98-107) Pending Carbon Dioxide Level 29 MMOL/L (21-32) Pending Anion Gap 7 mmol/L (5-15) Blood Urea Nitrogen 10 mg/dL (7-18) Pending Creatinine 0.6 MG/DL (0.55-1.30) Pending Estimat Glomerular Filtration Rate > 60 mL/min (>60) Pending Glucose Level 133 MG/DL (74-106) H Pending Calcium Level 10.0 MG/DL (8.5-10.1) Pending Total Bilirubin 0.6 MG/DL (0.2-1.0) Pending Aspartate Amino Transf (AST/SGOT) 101 U/L (15-37) H Pending Alanine Aminotransferase (ALT/SGPT) 63 U/L (12-78) Pending Alkaline Phosphatase 349 U/L (46-116) H Pending Total Protein 7.5 G/DL (6.4-8.2) Pending Albumin 2.8 G/DL (3.4-5.0) L Pending Globulin 4.7 g/dL Pending Albumin/Globulin Ratio 0.6 (1.0-2.7) L Lipase 102 U/L (73-393) Height (Feet): 5 Height (Inches): 1.00 Weight (Pounds): 156 Medications Current Medications Medications (Trade) Dose Ordered Sig/Deb Route PRN Reason Start Time Stop Time Status Last Admin Dose Admin Acetaminophen (Tylenol) 650 mg Q4H PRN ORAL Mild Pain/Temp > 100.5 12/09/19 18:45 01/08/20 18:44 Acetaminophen/ Hydrocodone Bitart ([place] 5/325) 1 tab Q4H PRN ORAL Moderate Pain (Pain Scale 4-6) 12/09/19 18:45 12/16/19 18:44 12/09/19 22:52 Clonidine HCl (Catapres Tab) 0.1 mg Q6H PRN ORAL SBP>180 12/09/19 18:45 01/08/20 18:44 Iohexol (OMNIPAQUE-300 100ml) 100 ml NOW PRN INJ Radiology Procedure 12/09/19 13:45 12/11/19 13:44 Losartan Potassium (Cozaar) 50 mg BID ORAL 12/10/19 09:00 01/09/20 08:59 Naproxen (Naprosyn) 500 mg TWICE A DAY ORAL 12/10/19 09:00 01/09/20 08:59 Tramadol HCl (Ultram) 50 mg BIDPRN PRN ORAL For Pain 12/09/19 18:45 12/16/19 18:44 Trazodone HCl (Desyrel) 50 mg BEDTIME ORAL 12/09/19 21:00 01/08/20 20:59 12/09/19 21:07 Assessment/Plan Assessment/Plan: Oncology Consultation Date patient seen: 12/10/2019 Reason for Hospitalization: Pain, nausea Referring physician: Shirley Trujillo Reason for Consultation: Stage iv malignancy ID 54-year-old female with history of hypertension hyperlipidemia presenting for evaluation of body wide pain and fatigue. Symptoms present approximately 3 weeks. She states that originally she was complaining of a pain in the right shoulder which spread to her back wrapped around her chest and then descended now into her lower abdomen and pelvis. This is been ongoing for approximately 2 weeks and appears to be migratory. She denies any nausea or vomiting fever or chills. She currently denies any chest pain or shortness of breath. She states she was admitted to [facility] last week with a discharge diagnosis of "chest pain." Pt seen, awake A&Ox4 NAD has c/o of generalized abdominal pain. Abdomen has mild distention, tenderness in all quadrants, no bloating or tympany noted. Abdominal Pelvis CT noted evidence of disseminated malignancy, with multiple liver lesions, peripancreatic, lesser sac, and retroperitoneal necrotic lymphadenopathy, anterolateral expansile right fifth rib lesion. Lesion in the lungs are of less certain significance but could also represent small metastatic deposit. Etiology not definitely demonstrated. 7 x 8 x 5.6 cm left lobe liver lesion, probably a large necrotic metastasis given the above findings , but demonstrates partial fluid attenuation and could represent a separate process such as a complex cyst or liver abscess. Patient has no history of endoscopy or colonoscopy. Denies any ETOH, IVDA or tobacco use. CT guided biopsy of liver lesion reviewed and shows cancer likely pancreatic origin. However need further tissue and colo upper and lower on this admission for further workup, she was in the office yesterday and transferred to [facility] for further eval. Home Meds No Active Prescriptions or Reported Meds Med list reviewed/reconciled: Yes Allergies: Coded Allergies: No Known Allergies (Unverified , 11/29/19) Patient History History Provided By: Patient, Medical Record PMH Narrative PMH: Hypertension, hyperlipidemia PSH: Reviewed Allergies: Reviewed Social Hx: Reviewed, current smoker Social History: Denies: smoking, alcohol use, drug use, other ROS (review of systems): Constitutional: ++ weight loss, loss of appetite Skin: No rashes, lumps, itchiness, dryness HEENT: No ALY, ear ache, visual changes, double vision, nosebleeds Breasts: No lumps, pain, discharge Pulmonary: No cough, sputum, shortness of breath, coughing up blood Cardiovascular: No chest pain, tightness, palpitations, syncope, PND GI: No nausea, vomiting, diarrhea, melena, hematochezia, change in appetite, : No dysuria, frequency, urgency, urinary incontinence, foamy urine Musculoskeletal: No joint swelling or muscle pain, trauma, back pain Neurologic: No dizziness, fainting, seizures, changes in smell or taste Psychiatric: No nervousness, stress, or depression, anxiety, hallucinations Endocrine: No weight change, heat or cold intolerance, tremor, insomnia Physical Exam: Vitals: reviewed General: NAD HEENT: nc, at Neck: supple Chest: clear breath sounds bilaterally Abdomen: soft, nontender, nd Extremities: no cce, normal range of motion Neuro: alert and oriented Labs: reviewed Imaging: noted Assessment and Recs # Stage iv likely malignancy query pancreatic origin, she is here for fruther workup to figure out primary source -- has disseminated malignancy, with multiple liver lesions, peripancreatic, lesser sac, and retroperitoneal necrotic lymphadenopathy, anterolateral expansile right fifth rib lesion. Lesion in the lungs are of less certain significance but could also represent small metastatic deposit. Etiology not definitely demonstrated 7 x 8 x 5.6 cm left lobe liver lesion, probably a large necrotic metastasis given the above findings, but demonstrates partial fluid attenuation and could represent a separate process such as a complex cyst or liver abscess --> her risk factor is smoking --> biopsy done on last admission shows likely pancreatic origin (is not lung or gi) --> will need pet scan as outpatient --> DISCUSSED thoroughly with son, and sister --> she is here for FULL workup to figure out primary, upper and lower endoscopy , a new biopsy of lung or other lesion to compare as prior tissue was non- definitive diagnostic --> once workup completed, we can treat her cancer with more precise drugs/chemo /immunotherapy -- she now does have straight mediCAL # Thrombocytopenia - potential causes multifactorial, evaluate liver and viral etiologies to begin, also could be related to underlying medications patient has received. --> Hep panel and HIV both negative --> ct abd positive for liver lesion and hsm --> Peripheral smear ordered to evaluate for blasts /schistocytes --> abx and other meds have been reviewed --> ok for ppx if plt >50k w/ either heparin or lovenox --> plt trend: 117k-->134-->119 # Anemia of chronic disease due to underlying chronic medical issues, multifactorial v Gi bleed --> Anemia workup has been ordered, rule out gi bleed --> No evidence of hemolysis is noted, peripheral smear has been reviewed. --> Hgb goal >7. Transfuse prn. --> Epogen or iron at this time is not particularly indicated --> Medications have been reviewed --> hgb trend: 11.4-->12.9 --> low threshold for gi evaluation in case has occult + # Abdominal pain --> likely related to Metastasis # Liver metastasis # Weakness # Pain management # SW consult Appreciate consultation and dw Eugene Bautista MD Dec 10, 2019 06:27
[2019-12-10] MEDS ORDERED: Lidocaine 1% Plain 30 ml INJ PRN (06:30)
--- NOTE | 2019-12-10 06:38 | NUR ---
NURSE NOTES: Rounded with Dr. Truong. ordered new orders. Ordered read back and carried out. See orders for details. Left a message to get an order from Dr. Green for lower and upper endoscopy and bowel prep orders as per Dr. Truong's request. Awaiting callback.
[2019-12-10 06:58] LABS: ALANINE AMINOTRANSFERASE 78 U/L (12-78); ALBUMIN 2.5 G/DL (3.4-5.0); ALBUMIN/GLOBULIN RATIO 0.6 (1.0-2.7); ALKALINE PHOSPHATASE 420 U/L (46-116); ANION GAP 11 mmol/L (5-15); ASPARTATE AMINO TRANSFERASE 102 U/L (15-37); BILIRUBIN,TOTAL 0.6 MG/DL (0.2-1.0); BLOOD UREA NITROGEN 11 mg/dL (7-18); CALCIUM 9.8 MG/DL (8.5-10.1); CARBON DIOXIDE 24 MMOL/L (21-32); CHLORIDE 104 MMOL/L (98-107); CREATININE 0.7 MG/DL (0.55-1.30); SODIUM 139 MMOL/L (136-145)
[2019-12-10 07:06] LABS: BASOPHILS % (AUTO) 0.8 % (0.0-2.0); EOSINOPHILS % (AUTO) 2.1 % (0.0-3.0); HEMATOCRIT 33.5 % (37.0-47.0); HEMOGLOBIN 11.9 G/DL (12.0-16.0); LYMPHOCYTES % (AUTO) 29.2 % (20.0-45.0); MEAN CORPUSCULAR VOLUME 92 FL (80-99); MONOCYTES % (AUTO) 10.5 % (1.0-10.0); NEUTROPHILS % (AUTO) 57.5 % (45.0-75.0); PLATELET COUNT 120 K/UL (150-450); RED BLOOD COUNT 3.65 M/UL (4.20-5.40); RED CELL DISTRIBUTION WIDTH 11.8 % (11.6-14.8); WHITE BLOOD COUNT 7.4 K/UL (4.8-10.8)
--- NOTE | 2019-12-10 07:38 | NUR ---
HAND-OFF: Report given to DESTINEE Beasley. Pt is awake and in stable condition. Plan of care endorsed.
--- NOTE | 2019-12-10 07:44 | NUR ---
NURSE NOTES: WALKING ROUNDS DONE WITH OUTGOING RN. PATIENT AWAKE IN BED WITH C/O ABDOMINAL PAIN 9/10 ON PAIN SCALE. BS HYPO. PAIN UPON TOUCH TO ABDOMEN. WILL ADMINISTER ANALGESICS ORDERED. QUESTIONS ANSWERED NEEDS MET AT THIS TIME. BED IN LOW AND LOCKED POSITION. CALL LIGHT WITHIN REACH.
[2019-12-10] MEDS: HYDROcodone/Acetamin 5/325 tab ORAL PRN ×2 (08:16→11:59)
[2019-12-10] MEDS: Sennosides 8.6mg tab ORAL PRN ×2 (09:04→19:06)
[2019-12-10] MEDS: Docusate 100mg cap ORAL PRN ×2 (09:04→19:06)
[2019-12-10] MEDS: Naproxen 500mg tab ORAL SCH ×2 (09:04→19:06)
[2019-12-10] MEDS: Losartan 50mg tab ORAL SCH ×2 (09:05→19:06)
--- NOTE | 2019-12-10 10:30 | NUR ---
NURSE NOTES: ORDER RECEIVED FOR CONSENT. PATIENT KYRGYZ SPEAKING. OBTAINED CONSENT VIA [employer]. 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
[2019-12-10] MEDS ORDERED: fentaNYL 100 mcg/2 mL IV ONE (10:49)
[2019-12-10] MEDS ORDERED: Midazolam 2mg/2ml Inj ONE (10:49)
--- NOTE | 2019-12-10 10:59 | Pre-Procedure Note/Attestation ---
Pre-Procedure Note/Attestation Complete Prior to Procedure Planned Procedure: right Procedure Narrative: rib mass biopsy Indications for Procedure Pre-Operative Diagnosis: rib mass Attestation I attest that I discussed the nature of the procedure; its benefits; risks and complications; and alternatives (and the risks and benefits of such alternatives ), prior to the procedure, with the patient (or the patient's legal business development representative). I attest that, if there was a reasonable possibility of needing a blood transfusion, the patient (or the patient's legal business development representative) was given the [facility] standardized written summary, pursuant to the [place] Blood Safety Act ([place] Health and Safety Code # 1645, as amended). I attest that I re-evaluated the patient just prior to the surgery and that there has been no change in the patient's H&P, except as documented below: Santhosh Velez MD Dec 10, 2019 10:59
--- NOTE | 2019-12-10 11:00 | Moderate Sedation - Procedural ---
Moderate Sedation HPI Home Medication Reported Medications Losartan Potassium* (LOSARTAN POTASSIUM*) 50 Mg Tablet, 50 MG ORAL BID PRN for For High Blood Pressure, TAB 12/07/19 Naproxen* (NAPROXEN*) 500 Mg Tablet, 500 MG ORAL TWICE A DAY for MODERATE PAIN, TAB 12/07/19 Tramadol Hcl* (ULTRAM*) 50 Mg Tablet, 50 MG ORAL BID PRN for For Pain, #12 TAB 0 Refills 12/07/19 Losartan Potassium* (LOSARTAN POTASSIUM*) 25 Mg Tablet, 25 MG ORAL DAILY for HTN , TAB 12/07/19 Trazodone Hcl* (DESYREL*) 50 Mg Tablet, 50 MG ORAL BEDTIME for pain, TAB 12/07/19 Patient History Allergies: Coded Allergies: No Known Allergies (Unverified , 11/29/19) Pre-Procedural Mod Sedation Pre-Assessment Time: 11:05 Pre-Sedation Assessment: Eval. Immed. Prior to Sed Airway Assessment (Malampati): III Evaluation Hx of untoward rxns to mod sed: No Procedures/Plans: Radiology Plan for Moderate Sedation: Fentanyl ASA Score: II Informed Consent The nature of the procedure/sedation; its benefits; risks and complications; and alternatives (and the risks and benefits of such alternatives) were discussed with the patient (or their legal authorization representative), prior to the procedure. All questions were answered to the patient's (or their legal authorization representative's) satisfaction and the patient (or their legal authorization representative) gave informed consent to the procedure. I attest that I re-evaluated the patient just prior to the surgery and that there has been no change in the patient's H&P, except as documented below: Post Procedure Assessment Post Procedure TIme: 11:25 Communication: No Apparent Limitation Mental Status: Awake Respiration: Unlabored Skin Condition: WNL Adomen: WNL Nausea: NO Vomiting: NO Santhosh Velez MD Dec 10, 2019 11:00
--- NOTE | 2019-12-10 11:27 | Brief Operative Note ---
Immediate Post Operative Note Operative Note Pre-op Diagnosis: rib mass Procedure: CT guided core bx Post-op Diagnosis: same as pre-op Findings: consistent w/pre-op dx studies Surgeon: Teddy Muñiz Anesthesia: local Specimen: yes - 4 18 G cores Complications: none Fluids: none Implant(s) used?: No Santhosh Muñiz MD Dec 10, 2019 11:27
--- NOTE | 2019-12-10 11:40 | NUR ---
CHARGE NURSE NOTES: Report received from SHAYY FELIPE over the phone. S/P Ct guided biopsy. w/ dressing over right upper chest. RN Gale made aware. Pt is awake & alert & verbally responsive, denies pain
--- NOTE | 2019-12-10 11:40 | NUR ---
NURSE NOTES: PATIENT RETURNED FROM RADIOLOGY VIA BED. AOX4. RIGHT CHEST DRSG 4X4 W/ TEGADERM C/D/I. VSS. AFEBRILE. NO RESPIRATORY DISTRESS NOTED. FAMILY AT BEDSIDE.
[2019-12-10] MEDS ORDERED: Miralax 17gm pkt ORAL PRN (12:30)
--- NOTE | 2019-12-10 13:09 | Diagnostic Imaging Report ---
Indication: Status post biopsy of right fifth rib Technique: One view of the chest Comparison: 12/07/2019 Findings: Lungs pleural spaces are clear. No pneumothorax. Suggestion of minimal ill-defined opacity projected over the right mid and lower lung periphery may represent the expansile bone lesion recently biopsied. Impression: No acute process. No evidence of postbiopsy pneumothorax
--- NOTE | 2019-12-10 13:22 | General Progress Note ---
Assessment/Plan Problem List: (1) Metastatic cancer ICD Codes: C79.9 - Secondary malignant neoplasm of unspecified site SNOMED: 726899389 (2) Liver metastasis ICD Codes: C78.7 - Secondary malignant neoplasm of liver and intrahepatic bile duct SNOMED: 16672522 (3) Weakness ICD Codes: R53.1 - Weakness SNOMED: 97520876 Assessment/Plan: s/p CT guided biopsy fu path fu oncology tumor markers GI procedures if needed Subjective ROS Limited/Unobtainable: Yes Allergies: Coded Allergies: No Known Allergies (Unverified , 11/29/19) Objective Last 24 Hour Vital Signs Date Time Temp Pulse Resp B/P (MAP) Pulse Ox O2 Delivery O2 Flow Rate FiO2 12/10/19 12:55 98.2 60 17 123/62 (82) 96 12/10/19 12:29 98.1 12/10/19 12:25 98.1 58 17 134/63 (86) 96 12/10/19 12:10 98.0 55 20 118/56 (76) 96 12/10/19 11:55 98.1 61 22 131/58 (82) 97 12/10/19 11:40 98.0 65 17 129/70 (89) 96 12/10/19 11:25 64 18 124/54 (77) 100 12/10/19 11:20 64 18 121/60 (80) 100 12/10/19 11:15 56 18 118/53 (74) 100 12/10/19 11:10 60 18 136/58 (84) 100 12/10/19 10:33 62 16 2.0 12/10/19 09:34 98.0 12/10/19 09:05 143/86 12/10/19 09:00 Room Air 12/10/19 08:00 97.6 84 20 143/86 (105) 96 12/10/19 04:00 98.0 65 21 119/64 (82) 93 12/10/19 00:00 98.2 69 20 121/58 (79) 95 12/09/19 21:00 Room Air 12/09/19 18:18 Room Air 12/09/19 18:05 97.8 61 20 161/74 (103) 98 12/09/19 16:05 97.7 74 18 126/67 96 Room Air 12/09/19 13:53 97.9 70 16 124/62 95 Room Air 12/09/19 13:53 70 16 Room Air 12/09/19 13:36 97.9 70 16 124/62 (82) 95 Room Air Laboratory Tests 12/09/19 13:50: White Blood Count 8.9, Red Blood Count 3.98L, Hemoglobin 12.9, Hematocrit 36.7L , Mean Corpuscular Volume 92, Mean Corpuscular Hemoglobin 32.3H, Mean Corpuscular Hemoglobin Concent 35.0, Red Cell Distribution Width 11.7, Platelet Count 109L, Mean Platelet Volume 11.1H, Neutrophils (%) (Auto) 67.7, Lymphocytes (%) (Auto) 20.7, Monocytes (%) (Auto) 9.1, Eosinophils (%) (Auto) 1.6, Basophils (%) (Auto) 0.9, Prothrombin Time 10.1, Prothromb Time International Ratio 0.9, Activated Partial Thromboplast Time 26, Sodium Level 138, Potassium Level 3.8, Chloride Level 102, Carbon Dioxide Level 29, Anion Gap 7, Blood Urea Nitrogen 10, Creatinine 0.6, Estimat Glomerular Filtration Rate > 60, Glucose Level 133H, Calcium Level 10.0, Total Bilirubin 0.6, Aspartate Amino Transf (AST/SGOT) 101H, Alanine Aminotransferase (ALT/SGPT) 63, Alkaline Phosphatase 349H, Total Protein 7.5, Albumin 2.8L, Globulin 4.7, Albumin/Globulin Ratio 0.6L, Lipase 102 12/10/19 05:20: White Blood Count 7.4, Red Blood Count 3.65L, Hemoglobin 11.9L, Hematocrit 33.5L , Mean Corpuscular Volume 92, Mean Corpuscular Hemoglobin 32.5H, Mean Corpuscular Hemoglobin Concent 35.4, Red Cell Distribution Width 11.8, Platelet Count 120L, Mean Platelet Volume 11.6H, Neutrophils (%) (Auto) 57.5, Lymphocytes (%) (Auto) 29.2, Monocytes (%) (Auto) 10.5H, Eosinophils (%) (Auto) 2.1, Basophils (%) (Auto) 0.8, Sodium Level 139, Potassium Level 4.0, Chloride Level 104, Carbon Dioxide Level 24, Anion Gap 11, Blood Urea Nitrogen 11, Creatinine 0.7, Estimat Glomerular Filtration Rate > 60, Glucose Level 93, Calcium Level 9.8, Total Bilirubin 0.6, Aspartate Amino Transf (AST/SGOT) 102H, Alanine Aminotransferase (ALT/SGPT) 78, Alkaline Phosphatase 420H, Total Protein 6.9, Albumin 2.5L, Globulin 4.4, Albumin/Globulin Ratio 0.6L Height (Feet): 5 Height (Inches): 1.00 Weight (Pounds): 156 General Appearance: alert EENT: normal ENT inspection Neck: supple Cardiovascular: normal rate Respiratory/Chest: decreased breath sounds Abdomen: soft, hypoactive bowel sounds Extremities: normal range of motion, non-tender Luis Green MD Dec 10, 2019 13:22
--- NOTE | 2019-12-10 13:30 | NUR ---
NURSE NOTES: PATIENT REMAINS STABLE AFTER PROCEDURE. VSS.A FEBRILE. STATES ABD PAIN MODERATELY RELIEVED. SEEN BY DR. PORTILLO. NEW DIET ORDERED. PATIENT AWARE. FAMILY/FRIEND AT BEDSIDE. WILL CONTINUE TO MONITOR.
--- NOTE | 2019-12-10 13:49 | NUR ---
CASE MANAGEMENT: INITIAL REVIEW 54YR OLD FEMALE FROM HOME CC: ABD PAIN SI:METASTATIC CANCER . ABD PAIN . FAILURE TO THRIVE . OBSTRUCTION 97.9 70 16 124/62 95% ON RA ALP 349 BG 133 PLT 109 IS:IV NS BOLUS X1 IV ZOFRAN X1 MG CITRATE PO X1 CHEST/ABD/PELVIC CT-Mild ascites; Evidence of widespread metastatic neoplasm involving the lungs, liver, mesentery and retroperitoneum and bones. \: [facility]G UNIT CASE MANAGEMENT: REVIEW 12/10/19 SI:METASTATIC CANCER . ABD PAIN . FAILURE TO THRIVE . OBSTRUCTION 98.0 55 20 118/56 96% ON RA H/H 11.9/35.5 PLT 120 ALP 420 IS:COZAAR PO BID NAPROXEN PO BID ULTRAM PO BID/PRN CHEST X-RAY- \: 3E MED SURG UNIT PLAN: CT GUIDED BIOPSY F/U WITH ONCOLOGY TUMOR MARKERS
--- NOTE | 2019-12-10 14:15 | History and Physical Report ---
DATE OF ADMISSION: 12/09/[address] Trav Aragon's patient. I am covering for Dr. Trav Aragon. HISTORY OF PRESENT ILLNESS: Again, covering for Dr. Trav Aragon. The patient is here for rule out possible cancer. The patient does not know if she has cancer or not. The patient has been complaining of abdominal pain for one day and vomiting, hematemesis x2 and also constipation. Does have some mild weight loss. Denies shortness of breath. Denies cough. Denies flu like symptoms. Denies chest pain. PAST MEDICAL HISTORY: Significant for GERD and hypertension. Possible metastasis. We are not sure at this point. That is why the patient is admitted to be worked out for that to see if the patient does have any cancer with any metastasis. Dr. Truong is following this patient as an outpatient, so he will shed more light to this case. MEDICATIONS: Losartan and trazodone. FAMILY HISTORY: Noncontributory. SOCIAL HISTORY: Denies history of drug abuse. Denies history of alcohol abuse. Does have history of smoking. ALLERGIES: No known allergies. REVIEW OF SYSTEMS: HEENT: Denies headaches. RESPIRATORY: Denies shortness of breath. Denies cough. CARDIOVASCULAR: Denies chest pain or orthopnea. GASTROINTESTINAL: Reports abdominal pain and hematemesis for 2 days with constipation. Denies diarrhea. EXTREMITIES: Denies pain in lower extremities. CENTRAL NERVOUS SYSTEM: Denies change in speech pattern. PHYSICAL EXAMINATION: VITAL SIGNS: Temperature is 98.2, pulse is 69, blood pressure is 121/58. HEENT: PERRLA. NECK: Supple. No lymphadenopathy. CHEST: Clear to auscultation. CARDIOVASCULAR: Regular rate and rhythm. No murmurs or extra sounds. GASTROINTESTINAL: Mild epigastric tenderness. No organomegaly. Abdomen is soft. Positive bowel sounds. EXTREMITIES: No edema. Reflexes on both sides. Moves all four extremities. Dorsal pedis pulses are present. NEUROLOGIC: The patient is alert and oriented. LABORATORY DATA: WBC of 8.9, hemoglobin of 12.9, platelets of 109,000. Sodium 138, potassium 3.8, BUN of 10, creatinine 0.6, glucose 133. AST of 101, ALT of 63, alkaline phosphatase of 349. Lipase is 103. ASSESSMENT AND PLAN: Abdominal pain, hematemesis, rule out cancer. I have asked Dr. Eugene Truong that already follows the patient as outpatient to see the patient for consultation for workup as well as Dr. Green for the hematemesis and abdominal pain to do possible endoscopy. Again, Dr. Green and Dr. Truong have been consulted. Shirley Hassan M.D. DR: JAZMIN JOB#: [id number] CC:
--- NOTE | 2019-12-10 14:23 | NUR ---
RD ASSESSMENT & RECOMMENDATIONS SEE CARE ACTIVITY FOR COMPLETE ASSESSMENT DAILY ESTIMATED NEEDS: Needs based on Ca 53.5kg abw 25-30 kcals/kg 4274-7894 total kcals 1-2 g protein/kg 54-107 g total protein 25-30 mL/kg 1581-0903 total fluid mLs NUTRITION DIAGNOSIS: Altered nutrition related lab values r/t clinical status as evidenced by elev LFT's, CT scan w/ "evidence of widespread metastatic neoplasm involving the lungs, liver, mesentery and retroperitoneum and bones" per radiology. CURRENT DIET: Regular PO DIET RECOMMENDATIONS: Low Na diet/ Soft ADDITIONAL RECOMMENDATIONS: 1) Obtain a standing weight 2) Bowel regimen 3) Rec A1C for eval
--- NOTE | 2019-12-10 15:28 | Diagnostic Imaging Report ---
Indication: Expansile destructive right fifth rib lesion demonstrated of prior imaging studies Technique: Prior imaging studies reviewed. Informed consent obtained prior to commencement of the procedure. Procedural timeout performed. Localizing acquisitions obtained through the area of interest in the right fifth rib. Sterile prepping and draping. Local anesthesia with 1% lidocaine. Under CT guidance, a 17-gauge guide needle was directed to the anterior periphery of the target lesion. Follow-up CT slices confirmed engagement of the guide needle in the appropriate position. 4 core specimens obtained using coaxial inserted 18-gauge automated biopsy gun. Specimens were placed in formalin, submitted to pathology. The patient tolerated the procedure well, without immediate complication. Total dose length product 160 mGycm. CTDIvol(s) 7 x 6 mGy. Radiation dose was minimized using automated exposure control Comparison: Reference made to CT scan dated 12/09/2019 Findings: Procedural images document satisfactory needle placement. Completion image demonstrates no evidence of bleeding and no evidence of pneumothorax Impression: Biopsy of right fifth rib mass as described. Final pathology pending The CT scanner at [facility] is accredited by the [place] and the scans are performed using protocols designed to limit radiation exposure to as low as reasonably achievable to attain images of sufficient resolution adequate for diagnostic evaluation.
--- NOTE | 2019-12-10 19:07 | NUR ---
NURSE NOTES: PATIENT MORE COMFORTABLE. STATES ABDOMINAL PAIN HAS IMPROVED AFTER HAVING BM X2 TODAY. TOLERATING REGULAR DIET.VSS. AFEBRILE.
--- NOTE | 2019-12-10 19:49 | NUR ---
HAND-OFF: Report given to FRANCHESCA QUARLES RN.
--- NOTE | 2019-12-10 19:51 | NUR ---
NURSE NOTES: Pt. received from DESTINEE Beasley. Pt. AAOx4, on room air, no complaints of pain, breathing is even and unlabored. IV access left AC20g, asymptomatic, intact, and patent. Bed is low and locked, side rails up, and call light is in reach. Will continue to monitor.
[2019-12-10] MEDS: TraZODone 50mg tab ORAL SCH (20:30)
[2019-12-11] VITALS: BP 111/57
[2019-12-11 04:00] VITALS: BP 108/62
--- NOTE | 2019-12-11 07:00 | NUR ---
NURSE NOTES: AWAKE/ALERT. NO APPARENT DISTRESS.
[2019-12-11 07:34] LABS: BASOPHILS % (AUTO) 0.6 % (0.0-2.0); EOSINOPHILS % (AUTO) 1.9 % (0.0-3.0); HEMATOCRIT 33.3 % (37.0-47.0); HEMOGLOBIN 11.6 G/DL (12.0-16.0); LYMPHOCYTES % (AUTO) 30.6 % (20.0-45.0); MEAN CORPUSCULAR VOLUME 92 FL (80-99); MONOCYTES % (AUTO) 10.3 % (1.0-10.0); NEUTROPHILS % (AUTO) 56.6 % (45.0-75.0); PLATELET COUNT 127 K/UL (150-450); RED BLOOD COUNT 3.61 M/UL (4.20-5.40); RED CELL DISTRIBUTION WIDTH 11.8 % (11.6-14.8); WHITE BLOOD COUNT 7.6 K/UL (4.8-10.8)
--- NOTE | 2019-12-11 07:57 | General Progress Note ---
Assessment/Plan Problem List: (1) Metastatic cancer ICD Codes: C79.9 - Secondary malignant neoplasm of unspecified site SNOMED: 442337511 (2) Liver metastasis ICD Codes: C78.7 - Secondary malignant neoplasm of liver and intrahepatic bile duct SNOMED: 92581283 (3) Weakness ICD Codes: R53.1 - Weakness SNOMED: 15702993 Assessment/Plan: s/p CT guided biopsy fu path fu oncology tumor markers GI procedures if needed Subjective ROS Limited/Unobtainable: Yes Allergies: Coded Allergies: No Known Allergies (Unverified , 11/29/19) Objective Last 24 Hour Vital Signs Date Time Temp Pulse Resp B/P (MAP) Pulse Ox O2 Delivery O2 Flow Rate FiO2 12/11/19 04:00 97.6 61 21 108/62 (77) 96 12/11/19 00:00 98.2 60 21 111/57 (75) 96 12/10/19 21:00 Room Air 12/10/19 20:00 98.3 68 21 117/69 (85) 97 12/10/19 19:36 97.8 12/10/19 19:06 135/61 12/10/19 16:00 97.8 63 18 135/61 (85) 95 12/10/19 14:16 97.4 12/10/19 13:55 97.4 63 17 139/63 (88) 96 12/10/19 13:25 98.0 64 17 145/77 (99) 96 12/10/19 12:55 98.2 60 17 123/62 (82) 96 12/10/19 12:29 98.1 12/10/19 12:25 98.1 58 17 134/63 (86) 96 12/10/19 12:10 98.0 55 20 118/56 (76) 96 12/10/19 11:55 98.1 61 22 131/58 (82) 97 12/10/19 11:40 98.0 65 17 129/70 (89) 96 12/10/19 11:25 64 18 124/54 (77) 100 12/10/19 11:20 64 18 121/60 (80) 100 12/10/19 11:15 56 18 118/53 (74) 100 12/10/19 11:10 60 18 136/58 (84) 100 12/10/19 10:33 62 16 2.0 12/10/19 09:05 143/86 12/10/19 09:00 Room Air 12/10/19 08:00 97.6 84 20 143/86 (105) 96 Intake and Output 12/10/19 12/11/19 19:00 07:00 Intake Total 360 ml Balance 360 ml Intake Oral 360 ml # Voids 3 3 # Bowel Movements 2 Laboratory Tests 12/11/19 06:15: White Blood Count 7.6, Red Blood Count 3.61L, Hemoglobin 11.6L, Hematocrit 33.3L , Mean Corpuscular Volume 92, Mean Corpuscular Hemoglobin 32.1H, Mean Corpuscular Hemoglobin Concent 34.8, Red Cell Distribution Width 11.8, Platelet Count 127L, Mean Platelet Volume 11.5H, Neutrophils (%) (Auto) 56.6, Lymphocytes (%) (Auto) 30.6, Monocytes (%) (Auto) 10.3H, Eosinophils (%) (Auto) 1.9, Basophils (%) (Auto) 0.6, Sodium Level [Pending], Potassium Level [Pending] , Chloride Level [Pending], Carbon Dioxide Level [Pending], Blood Urea Nitrogen [Pending], Creatinine [Pending], Estimat Glomerular Filtration Rate [Pending], Glucose Level [Pending], Calcium Level [Pending], Total Bilirubin [Pending], Aspartate Amino Transf (AST/SGOT) [Pending], Alanine Aminotransferase (ALT/SGPT ) [Pending], Alkaline Phosphatase [Pending], Total Protein [Pending], Albumin [ Pending], Globulin [Pending], Carcinoembryonic Antigen [Pending], CA 19-9 Antigen [Pending] Height (Feet): 5 Height (Inches): 1.00 Weight (Pounds): 156 General Appearance: alert EENT: normal ENT inspection Neck: supple Cardiovascular: normal rate Respiratory/Chest: decreased breath sounds Abdomen: normal bowel sounds, non tender, soft Extremities: non-tender Luis Green MD Dec 11, 2019 07:57
[2019-12-11 08:00] VITALS: BP 116/56
[2019-12-11 08:03] LABS: ALANINE AMINOTRANSFERASE 53 U/L (12-78); ALBUMIN 2.5 G/DL (3.4-5.0); ALBUMIN/GLOBULIN RATIO 0.6 (1.0-2.7); ALKALINE PHOSPHATASE 359 U/L (46-116); ANION GAP 8 mmol/L (5-15); ASPARTATE AMINO TRANSFERASE 85 U/L (15-37); BILIRUBIN,TOTAL 0.6 MG/DL (0.2-1.0); BLOOD UREA NITROGEN 12 mg/dL (7-18); CALCIUM 9.6 MG/DL (8.5-10.1); CARBON DIOXIDE 28 MMOL/L (21-32); CHLORIDE 101 MMOL/L (98-107); CREATININE 0.6 MG/DL (0.55-1.30); SODIUM 137 MMOL/L (136-145)
--- NOTE | 2019-12-11 08:10 | NUR ---
HAND-OFF: Report given to DESTINEE Donato.
[2019-12-11] MEDS: HYDROcodone/Acetamin 5/325 tab ORAL PRN ×3 (08:36→21:03)
[2019-12-11] MEDS: Losartan 50mg tab ORAL SCH ×2 (08:36→17:46)
[2019-12-11] MEDS: Naproxen 500mg tab ORAL SCH ×2 (08:37→17:45)
[2019-12-11 12:00] VITALS: BP 137/58
--- NOTE | 2019-12-11 14:14 | General Progress Note ---
Assessment/Plan Problem List: (1) Weakness ICD Codes: R53.1 - Weakness SNOMED: 37794958 (2) Metastatic cancer ICD Codes: C79.9 - Secondary malignant neoplasm of unspecified site SNOMED: 746165270 Status: progressing Assessment/Plan: abdominal pain cancer w/u per dr webb no vomitting gi bleed endoscopy per gi dr Fox JACOBS Limited/Unobtainable: Yes Allergies: Coded Allergies: No Known Allergies (Unverified , 11/29/19) Objective Last 24 Hour Vital Signs Date Time Temp Pulse Resp B/P (MAP) Pulse Ox O2 Delivery O2 Flow Rate FiO2 12/11/19 12:00 98.0 62 18 137/58 (84) 98 12/11/19 09:06 97.6 12/11/19 09:06 97.6 12/11/19 09:00 Room Air 12/11/19 08:36 114/66 12/11/19 08:00 98.2 66 20 116/56 (76) 96 12/11/19 04:00 97.6 61 21 108/62 (77) 96 12/11/19 00:00 98.2 60 21 111/57 (75) 96 12/10/19 21:00 Room Air 12/10/19 20:00 98.3 68 21 117/69 (85) 97 12/10/19 19:06 135/61 12/10/19 16:00 97.8 63 18 135/61 (85) 95 12/10/19 14:16 97.4 Intake and Output 12/10/19 12/11/19 19:00 07:00 Intake Total 360 ml Balance 360 ml Intake Oral 360 ml # Voids 3 3 # Bowel Movements 2 Laboratory Tests 12/11/19 06:15: White Blood Count 7.6, Red Blood Count 3.61L, Hemoglobin 11.6L, Hematocrit 33.3L , Mean Corpuscular Volume 92, Mean Corpuscular Hemoglobin 32.1H, Mean Corpuscular Hemoglobin Concent 34.8, Red Cell Distribution Width 11.8, Platelet Count 127L, Mean Platelet Volume 11.5H, Neutrophils (%) (Auto) 56.6, Lymphocytes (%) (Auto) 30.6, Monocytes (%) (Auto) 10.3H, Eosinophils (%) (Auto) 1.9, Basophils (%) (Auto) 0.6, Sodium Level 137, Potassium Level 4.0, Chloride Level 101, Carbon Dioxide Level 28, Anion Gap 8, Blood Urea Nitrogen 12, Creatinine 0.6, Estimat Glomerular Filtration Rate > 60, Glucose Level 98, Calcium Level 9.6, Total Bilirubin 0.6, Aspartate Amino Transf (AST/SGOT) 85H, Alanine Aminotransferase (ALT/SGPT) 53, Alkaline Phosphatase 359H, Total Protein 6.7, Albumin 2.5L, Globulin 4.2, Albumin/Globulin Ratio 0.6L, Carcinoembryonic Antigen [Pending], CA 19-9 Antigen [Pending] Height (Feet): 5 Height (Inches): 1.00 Weight (Pounds): 156 Respiratory/Chest: lungs clear Shirley Hassan MD Dec 11, 2019 14:14
[2019-12-11 16:00] VITALS: BP 155/71
--- NOTE | 2019-12-11 19:00 | NUR ---
NURSE NOTES: AWAKE/ALERT. IN NO DISTRESS
--- NOTE | 2019-12-11 19:33 | NUR ---
HAND-OFF: Report given to José Miguel SERRANO RN.
[2019-12-11 20:00] VITALS: BP 148/70
[2019-12-11] MEDS: TraZODone 50mg tab ORAL SCH (22:06)
[2019-12-11] MEDS: Morphine Sulfate 2mg/ml Inj(IV/IM USE ONLY) IVP PRN (23:54)
[2019-12-12] VITALS: BP 121/51
--- NOTE | 2019-12-12 07:26 | NUR ---
NURSE NOTES: asleep. in no distress.
[2019-12-12 08:00] VITALS: BP 134/57
--- NOTE | 2019-12-12 08:27 | General Progress Note ---
Assessment/Plan Problem List: (1) Metastatic cancer ICD Codes: C79.9 - Secondary malignant neoplasm of unspecified site SNOMED: 530772154 (2) Liver metastasis ICD Codes: C78.7 - Secondary malignant neoplasm of liver and intrahepatic bile duct SNOMED: 55013054 (3) Weakness ICD Codes: R53.1 - Weakness SNOMED: 60915768 Status: progressing Assessment/Plan: s/p CT guided biopsy fu path fu oncology tumor markers GI procedures if needed Subjective Allergies: Coded Allergies: No Known Allergies (Unverified , 11/29/19) Objective Last 24 Hour Vital Signs Date Time Temp Pulse Resp B/P (MAP) Pulse Ox O2 Delivery O2 Flow Rate FiO2 12/12/19 00:00 98.3 58 20 121/51 (74) 98 12/11/19 21:00 Room Air 12/11/19 20:00 98.5 68 18 148/70 (96) 97 12/11/19 18:15 98.0 12/11/19 17:46 155/71 12/11/19 17:02 98.0 12/11/19 16:00 97.5 67 20 155/71 (99) 95 12/11/19 12:00 98.0 62 18 137/58 (84) 98 12/11/19 09:00 Room Air 12/11/19 08:36 114/66 Intake and Output 12/11/19 12/12/19 19:00 07:00 Intake Total 400 ml 300 ml Balance 400 ml 300 ml Intake Oral 400 ml 300 ml # Voids 2 Laboratory Tests 12/12/19 07:53: White Blood Count [Pending], Red Blood Count [Pending], Hemoglobin [Pending], Hematocrit [Pending], Mean Corpuscular Volume [Pending], Mean Corpuscular Hemoglobin [Pending], Mean Corpuscular Hemoglobin Concent [Pending], Red Cell Distribution Width [Pending], Platelet Count [Pending], Mean Platelet Volume [ Pending], Neutrophils (%) (Auto) [Pending], Lymphocytes (%) (Auto) [Pending], Monocytes (%) (Auto) [Pending], Eosinophils (%) (Auto) [Pending], Basophils (%) (Auto) [Pending], Sodium Level [Pending], Potassium Level [Pending], Chloride Level [Pending], Carbon Dioxide Level [Pending], Blood Urea Nitrogen [Pending], Creatinine [Pending], Estimat Glomerular Filtration Rate [Pending], Glucose Level [Pending], Calcium Level [Pending], Total Bilirubin [Pending], Aspartate Amino Transf (AST/SGOT) [Pending], Alanine Aminotransferase (ALT/SGPT) [Pending] , Alkaline Phosphatase [Pending], Troponin I [Pending], Total Protein [Pending] , Albumin [Pending], Globulin [Pending] Height (Feet): 5 Height (Inches): 1.00 Weight (Pounds): 156 General Appearance: alert EENT: normal ENT inspection Neck: normal alignment Cardiovascular: normal rate Respiratory/Chest: lungs clear Abdomen: normal bowel sounds, non tender, soft Extremities: non-tender Luis Green MD Dec 12, 2019 08:27
[2019-12-12 08:34] LABS: BASOPHILS % (AUTO) 0.9 % (0.0-2.0); EOSINOPHILS % (AUTO) 2.3 % (0.0-3.0); HEMATOCRIT 33.4 % (37.0-47.0); HEMOGLOBIN 11.7 G/DL (12.0-16.0); LYMPHOCYTES % (AUTO) 25.3 % (20.0-45.0); MEAN CORPUSCULAR VOLUME 91 FL (80-99); MONOCYTES % (AUTO) 11.3 % (1.0-10.0); NEUTROPHILS % (AUTO) 60.2 % (45.0-75.0); PLATELET COUNT 110 K/UL (150-450); RED BLOOD COUNT 3.65 M/UL (4.20-5.40); RED CELL DISTRIBUTION WIDTH 11.9 % (11.6-14.8); WHITE BLOOD COUNT 7.1 K/UL (4.8-10.8)
--- NOTE | 2019-12-12 08:34 | Hematology/Onc Progress Note ---
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 Lesion in the lungs are of less certain significance but could also represent small metastatic deposit. Etiology not definitely demonstrated 7 x 8 x 5.6 cm left lobe liver lesion, probably a large necrotic metastasis given the above findings, but demonstrates partial fluid attenuation and could represent a separate process such as a complex cyst or liver abscess --> her risk factor is smoking --> biopsy done on last admission shows likely pancreatic origin (is not lung or gi) --> will need pet scan as outpatient --> DISCUSSED thoroughly with son, and sister --> she is here for FULL workup to figure out primary, a new biopsy of lung was done on saturday 12/09 --> will see if requires endoscopy after above biopsy results, have dw Dr. Green # Thrombocytopenia - potential causes multifactorial, evaluate liver and viral etiologies to begin, also could be related to underlying medications patient has received. --> Hep panel and HIV both negative --> ct abd positive for liver lesion and hsm --> Peripheral smear ordered to evaluate for blasts /schistocytes --> abx and other meds have been reviewed --> ok for ppx if plt >50k w/ either heparin or lovenox --> plt trend: 117k-->134-->119 # Anemia of chronic disease due to underlying chronic medical issues, multifactorial v Gi bleed --> Anemia workup has been ordered, rule out gi bleed --> No evidence of hemolysis is noted, peripheral smear has been reviewed. --> Hgb goal >7. Transfuse prn. --> Epogen or iron at this time is not particularly indicated --> Medications have been reviewed --> hgb trend: 11.4-->12.9 --> low threshold for gi evaluation in case has occult + # Abdominal pain --> likely related to Metastasis # Liver metastasis # Weakness # Pain management # SW consult Appreciate consultation and milly RN Subjective Allergies: Coded Allergies: No Known Allergies (Unverified , 11/29/19) Subjective 12/11: no acute distress, s/p ct guided biop,today's labs pending, room air Objective Objective Current Medications Medications (Trade) Dose Ordered Sig/Deb Route PRN Reason Start Time Stop Time Status Last Admin Dose Admin Acetaminophen (Tylenol) 650 mg Q4H PRN ORAL Mild Pain/Temp > 100.5 12/09/19 18:45 01/08/20 18:44 Acetaminophen/ Hydrocodone Bitart ([place] 5/325) 1 tab Q4H PRN ORAL Moderate Pain (Pain Scale 4-6) 12/09/19 18:45 12/16/19 18:44 12/11/19 21:03 Clonidine HCl (Catapres Tab) 0.1 mg Q6H PRN ORAL SBP>180 12/09/19 18:45 01/08/20 18:44 Docusate Sodium (Colace) 100 mg TWICE A DAY PRN ORAL Constipation 12/10/19 06:45 01/09/20 06:44 12/10/19 19:06 Losartan Potassium (Cozaar) 50 mg BID ORAL 12/10/19 09:00 01/09/20 08:59 12/11/19 17:46 Morphine Sulfate (Morphine Sulfate) 2 mg Q4HR PRN IVP For Severe Pain 12/11/19 23:45 12/18/19 23:44 12/11/19 23:54 Naproxen (Naprosyn) 500 mg TWICE A DAY ORAL 12/10/19 09:00 01/09/20 08:59 12/11/19 17:45 Ondansetron HCl (Zofran) 4 mg Q6H PRN IVP Nausea & Vomiting 12/12/19 00:15 01/11/20 00:14 Polyethylene Glycol (Miralax) 17 gm DAILY PRN ORAL Constipation 12/10/19 12:30 01/09/20 12:29 12/10/19 13:47 Sennosides (Senokot) 8.6 mg TID PRN ORAL Constipation 12/10/19 06:45 01/09/20 06:44 12/10/19 19:06 Tramadol HCl (Ultram) 50 mg BIDPRN PRN ORAL For Pain 12/09/19 18:45 12/16/19 18:44 12/10/19 13:46 Trazodone HCl (Desyrel) 50 mg BEDTIME ORAL 3/5/20 21:00 01/08/20 20:59 12/11/19 22:06 Last 24 Hour Vital Signs Date Time Temp Pulse Resp B/P (MAP) Pulse Ox O2 Delivery O2 Flow Rate FiO2 12/12/19 00:00 98.3 58 20 121/51 (74) 98 12/11/19 21:00 Room Air 12/11/19 20:00 98.5 68 18 148/70 (96) 97 12/11/19 18:15 98.0 12/11/19 17:46 155/71 12/11/19 17:02 98.0 12/11/19 16:00 97.5 67 20 155/71 (99) 95 12/11/19 12:00 98.0 62 18 137/58 (84) 98 12/11/19 09:00 Room Air 12/11/19 08:36 114/66 12/11/19 08:00 98.2 66 20 116/56 (76) 96 12/11/19 04:00 97.6 61 21 108/62 (77) 96 12/11/19 00:00 98.2 60 21 111/57 (75) 96 12/10/19 21:00 Room Air 12/10/19 20:00 98.3 68 21 117/69 (85) 97 12/10/19 19:06 135/61 12/10/19 16:00 97.8 63 18 135/61 (85) 95 12/10/19 14:16 97.4 12/10/19 13:55 97.4 63 17 139/63 (88) 96 12/10/19 13:25 98.0 64 17 145/77 (99) 96 12/10/19 12:55 98.2 60 17 123/62 (82) 96 12/10/19 12:25 98.1 58 17 134/63 (86) 96 12/10/19 12:10 98.0 55 20 118/56 (76) 96 12/10/19 11:55 98.1 61 22 131/58 (82) 97 12/10/19 11:40 98.0 65 17 129/70 (89) 96 12/10/19 11:25 64 18 124/54 (77) 100 12/10/19 11:20 64 18 121/60 (80) 100 12/10/19 11:15 56 18 118/53 (74) 100 12/10/19 11:10 60 18 136/58 (84) 100 12/10/19 10:33 62 16 2.0 12/10/19 09:05 143/86 12/10/19 09:00 Room Air Intake and Output 12/11/19 12/12/19 19:00 07:00 Intake Total 400 ml 300 ml Balance 400 ml 300 ml Intake Oral 400 ml 300 ml # Voids 2 Labs Test 12/09/19 13:50 12/10/19 05:20 12/11/19 06:15 12/12/19 07:53 White Blood Count 8.9 K/UL (4.8-10.8) 7.4 K/UL (4.8-10.8) 7.6 K/UL (4.8-10.8) Red Blood Count 3.98 M/UL (4.20-5.40) 3.65 M/UL (4.20-5.40) 3.61 M/UL (4.20-5.40) Hemoglobin 12.9 G/DL (12.0-16.0) 11.9 G/DL (12.0-16.0) 11.6 G/DL (12.0-16.0) Hematocrit 36.7 % (37.0-47.0) 33.5 % (37.0-47.0) 33.3 % (37.0-47.0) Mean Corpuscular Volume 92 FL (80-99) 92 FL (80-99) 92 FL (80-99) Mean Corpuscular Hemoglobin 32.3 PG (27.0-31.0) 32.5 PG (27.0-31.0) 32.1 PG (27.0-31.0) Mean Corpuscular Hemoglobin Concent 35.0 G/DL (32.0-36.0) 35.4 G/DL (32.0-36.0) 34.8 G/DL (32.0-36.0) Red Cell Distribution Width 11.7 % (11.6-14.8) 11.8 % (11.6-14.8) 11.8 % (11.6-14.8) Platelet Count 109 K/UL (150-450) 120 K/UL (150-450) 127 K/UL (150-450) Mean Platelet Volume 11.1 FL (6.5-10.1) 11.6 FL (6.5-10.1) 11.5 FL (6.5-10.1) Neutrophils (%) (Auto) 67.7 % (45.0-75.0) 57.5 % (45.0-75.0) 56.6 % (45.0-75.0) Lymphocytes (%) (Auto) 20.7 % (20.0-45.0) 29.2 % (20.0-45.0) 30.6 % (20.0-45.0) Monocytes (%) (Auto) 9.1 % (1.0-10.0) 10.5 % (1.0-10.0) 10.3 % (1.0-10.0) Eosinophils (%) (Auto) 1.6 % (0.0-3.0) 2.1 % (0.0-3.0) 1.9 % (0.0-3.0) Basophils (%) (Auto) 0.9 % (0.0-2.0) 0.8 % (0.0-2.0) 0.6 % (0.0-2.0) Prothrombin Time 10.1 SEC (9.30-11.50) Prothromb Time International Ratio 0.9 (0.9-1.1) Activated Partial Thromboplast Time 26 SEC (23-33) Sodium Level 138 MMOL/L (136-145) 139 MMOL/L (136-145) 137 MMOL/L (136-145) Potassium Level 3.8 MMOL/L (3.5-5.1) 4.0 MMOL/L (3.5-5.1) 4.0 MMOL/L (3.5-5.1) Chloride Level 102 MMOL/L (98-107) 104 MMOL/L (98-107) 101 MMOL/L (98-107) Carbon Dioxide Level 29 MMOL/L (21-32) 24 MMOL/L (21-32) 28 MMOL/L (21-32) Anion Gap 7 mmol/L (5-15) 11 mmol/L (5-15) 8 mmol/L (5-15) Blood Urea Nitrogen 10 mg/dL (7-18) 11 mg/dL (7-18) 12 mg/dL (7-18) Creatinine 0.6 MG/DL (0.55-1.30) 0.7 MG/DL (0.55-1.30) 0.6 MG/DL (0.55-1.30) Estimat Glomerular Filtration Rate > 60 mL/min (>60) > 60 mL/min (>60) > 60 mL/min (>60) Glucose Level 133 MG/DL (74-106) 93 MG/DL (74-106) 98 MG/DL (74-106) Calcium Level 10.0 MG/DL (8.5-10.1) 9.8 MG/DL (8.5-10.1) 9.6 MG/DL (8.5-10.1) Total Bilirubin 0.6 MG/DL (0.2-1.0) 0.6 MG/DL (0.2-1.0) 0.6 MG/DL (0.2-1.0) Aspartate Amino Transf (AST/SGOT) 101 U/L (15-37) 102 U/L (15-37) 85 U/L (15-37) Alanine Aminotransferase (ALT/SGPT) 63 U/L (12-78) 78 U/L (12-78) 53 U/L (12-78) Alkaline Phosphatase 349 U/L (46-116) 420 U/L (46-116) 359 U/L (46-116) Total Protein 7.5 G/DL (6.4-8.2) 6.9 G/DL (6.4-8.2) 6.7 G/DL (6.4-8.2) Albumin 2.8 G/DL (3.4-5.0) 2.5 G/DL (3.4-5.0) 2.5 G/DL (3.4-5.0) Globulin 4.7 g/dL 4.4 g/dL 4.2 g/dL Albumin/Globulin Ratio 0.6 (1.0-2.7) 0.6 (1.0-2.7) 0.6 (1.0-2.7) Lipase 102 U/L (73-393) Height (Feet): 5 Height (Inches): 1.00 Weight (Pounds): 156 Objective Physical Exam: Vitals: reviewed General: NAD HEENT: nc, at Neck: supple Chest: clear breath sounds bilaterally Abdomen: soft, nontender, nd Extremities: no cce, normal range of motion Neuro: alert and oriented Eugene Truong MD Dec 12, 2019 08:34
[2019-12-12 09:02] LABS: ALANINE AMINOTRANSFERASE 49 U/L (12-78); ALBUMIN 2.5 G/DL (3.4-5.0); ALBUMIN/GLOBULIN RATIO 0.6 (1.0-2.7); ALKALINE PHOSPHATASE 358 U/L (46-116); ANION GAP 8 mmol/L (5-15); ASPARTATE AMINO TRANSFERASE 90 U/L (15-37); BILIRUBIN,TOTAL 0.6 MG/DL (0.2-1.0); BLOOD UREA NITROGEN 12 mg/dL (7-18); CALCIUM 9.6 MG/DL (8.5-10.1); CARBON DIOXIDE 28 MMOL/L (21-32); CHLORIDE 102 MMOL/L (98-107); CREATININE 0.7 MG/DL (0.55-1.30); SODIUM 138 MMOL/L (136-145)
[2019-12-12] MEDS: Naproxen 500mg tab ORAL SCH ×2 (09:25→17:25)
[2019-12-12] MEDS: Losartan 50mg tab ORAL SCH ×2 (09:25→17:25)
[2019-12-12 12:00] VITALS: BP 114/71
[2019-12-12 16:00] VITALS: BP 163/67
[2019-12-12] MEDS: Morphine Sulfate 2mg/ml Inj(IV/IM USE ONLY) IVP PRN (16:11)
--- NOTE | 2019-12-12 17:48 | Cardiology Progress Note ---
Assessment/Plan Assessment/Plan The patient is seen and examined, full consult note is dictated. Objective Last 24 Hour Vital Signs Date Time Temp Pulse Resp B/P (MAP) Pulse Ox O2 Delivery O2 Flow Rate FiO2 12/12/19 17:25 143/67 12/12/19 16:41 98.3 12/12/19 16:00 98.5 79 20 163/67 (99) 97 12/12/19 12:00 98.3 67 20 114/71 (85) 96 12/12/19 09:55 98.3 12/12/19 09:25 134/59 12/12/19 09:00 Room Air 12/12/19 08:00 98.5 64 20 134/57 (82) 98 12/12/19 00:00 98.3 58 20 121/51 (74) 98 12/11/19 21:00 Room Air 12/11/19 20:00 98.5 68 18 148/70 (96) 97 Intake and Output 12/11/19 12/12/19 19:00 07:00 Intake Total 400 ml 300 ml Balance 400 ml 300 ml Intake Oral 400 ml 300 ml # Voids 2 Laboratory Tests Test 12/12/19 07:53 White Blood Count 7.1 K/UL (4.8-10.8) Red Blood Count 3.65 M/UL (4.20-5.40) L Hemoglobin 11.7 G/DL (12.0-16.0) L Hematocrit 33.4 % (37.0-47.0) L Mean Corpuscular Volume 91 FL (80-99) Mean Corpuscular Hemoglobin 32.2 PG (27.0-31.0) H Mean Corpuscular Hemoglobin Concent 35.2 G/DL (32.0-36.0) Red Cell Distribution Width 11.9 % (11.6-14.8) Platelet Count 110 K/UL (150-450) L Mean Platelet Volume 10.8 FL (6.5-10.1) H Neutrophils (%) (Auto) 60.2 % (45.0-75.0) Lymphocytes (%) (Auto) 25.3 % (20.0-45.0) Monocytes (%) (Auto) 11.3 % (1.0-10.0) H Eosinophils (%) (Auto) 2.3 % (0.0-3.0) Basophils (%) (Auto) 0.9 % (0.0-2.0) Sodium Level 138 MMOL/L (136-145) Potassium Level 4.0 MMOL/L (3.5-5.1) Chloride Level 102 MMOL/L (98-107) Carbon Dioxide Level 28 MMOL/L (21-32) Anion Gap 8 mmol/L (5-15) Blood Urea Nitrogen 12 mg/dL (7-18) Creatinine 0.7 MG/DL (0.55-1.30) Estimat Glomerular Filtration Rate > 60 mL/min (>60) Glucose Level 104 MG/DL (74-106) Calcium Level 9.6 MG/DL (8.5-10.1) Total Bilirubin 0.6 MG/DL (0.2-1.0) Aspartate Amino Transf (AST/SGOT) 90 U/L (15-37) H Alanine Aminotransferase (ALT/SGPT) 49 U/L (12-78) Alkaline Phosphatase 358 U/L (46-116) H Troponin I 0.000 ng/mL (0.000-0.056) Total Protein 6.7 G/DL (6.4-8.2) Albumin 2.5 G/DL (3.4-5.0) L Globulin 4.2 g/dL Albumin/Globulin Ratio 0.6 (1.0-2.7) L Abimael Chavez MD Dec 12, 2019 17:48
[2019-12-12] MEDS: D5 1/2NS 1,000 ML IV SCH (18:40)
--- NOTE | 2019-12-12 19:00 | NUR ---
NURSE NOTES: AWAKE/ALERT. IN NO APPARENT DISTRESS
--- NOTE | 2019-12-12 19:40 | NUR ---
HAND-OFF: Report given to José Miguel GONZALEZ RN.
[2019-12-12 20:00] VITALS: BP 113/75
--- NOTE | 2019-12-12 20:49 | General Progress Note ---
Assessment/Plan Problem List: (1) Weakness ICD Codes: R53.1 - Weakness SNOMED: 18719284 (2) Metastatic cancer ICD Codes: C79.9 - Secondary malignant neoplasm of unspecified site SNOMED: 218715024 Status: progressing Assessment/Plan: cancer work up in progress nausea endoscopy per gi dr Fox ROS Limited/Unobtainable: Yes Allergies: Coded Allergies: No Known Allergies (Unverified , 11/29/19) Objective Last 24 Hour Vital Signs Date Time Temp Pulse Resp B/P (MAP) Pulse Ox O2 Delivery O2 Flow Rate FiO2 12/12/19 17:57 98.3 12/12/19 17:25 143/67 12/12/19 16:41 98.3 12/12/19 16:00 98.5 79 20 163/67 (99) 97 12/12/19 12:00 98.3 67 20 114/71 (85) 96 12/12/19 09:25 134/59 12/12/19 09:00 Room Air 12/12/19 08:00 98.5 64 20 134/57 (82) 98 12/12/19 00:00 98.3 58 20 121/51 (74) 98 12/11/19 21:00 Room Air Intake and Output 12/11/19 12/12/19 19:00 07:00 Intake Total 400 ml 300 ml Balance 400 ml 300 ml Intake Oral 400 ml 300 ml # Voids 2 Laboratory Tests 12/12/19 07:53: White Blood Count 7.1, Red Blood Count 3.65L, Hemoglobin 11.7L, Hematocrit 33.4L , Mean Corpuscular Volume 91, Mean Corpuscular Hemoglobin 32.2H, Mean Corpuscular Hemoglobin Concent 35.2, Red Cell Distribution Width 11.9, Platelet Count 110L, Mean Platelet Volume 10.8H, Neutrophils (%) (Auto) 60.2, Lymphocytes (%) (Auto) 25.3, Monocytes (%) (Auto) 11.3H, Eosinophils (%) (Auto) 2.3, Basophils (%) (Auto) 0.9, Sodium Level 138, Potassium Level 4.0, Chloride Level 102, Carbon Dioxide Level 28, Anion Gap 8, Blood Urea Nitrogen 12, Creatinine 0.7, Estimat Glomerular Filtration Rate > 60, Glucose Level 104, Calcium Level 9.6, Total Bilirubin 0.6, Aspartate Amino Transf (AST/SGOT) 90H, Alanine Aminotransferase (ALT/SGPT) 49, Alkaline Phosphatase 358H, Troponin I 0.000, Total Protein 6.7, Albumin 2.5L, Globulin 4.2, Albumin/Globulin Ratio 0.6L 12/12/19 18:00: Troponin I 0.000 Height (Feet): 5 Height (Inches): 1.00 Weight (Pounds): 156 Shirley Hassan MD Dec 12, 2019 20:49
[2019-12-12] MEDS: HYDROcodone/Acetamin 5/325 tab ORAL PRN (21:39)
[2019-12-12] MEDS: TraZODone 50mg tab ORAL SCH (21:40)
[2019-12-13] VITALS: BP 133/66
[2019-12-13] MEDS: HYDROcodone/Acetamin 5/325 tab ORAL PRN ×2 (04:39→10:33)
--- NOTE | 2019-12-13 07:30 | NUR ---
NURSE NOTES: Patient is in bed awake and able to verbalize needs. Stable. Denies pain or SOB. Patient is not in distress at this time. Plan of care discussed with patient. Patient is in bed in locked and lowest position with call light within reach. All needs met at this time. Will continue to monitor.
[2019-12-13 07:58] VITALS: BP 134/64
[2019-12-13] MEDS: D5 1/2NS 1,000 ML IV SCH (08:02)
[2019-12-13] MEDS: Losartan 50mg tab ORAL SCH (08:04)
--- NOTE | 2019-12-13 08:06 | NUR ---
Endorsed patient to [place] [facility]. Endorsed plan for patient to possibly d/c plan today told to me by Dr. Truong.
[2019-12-13] MEDS: Naproxen 500mg tab ORAL SCH (08:08)
--- NOTE | 2019-12-13 11:09 | General Progress Note ---
Assessment/Plan Problem List: (1) Weakness ICD Codes: R53.1 - Weakness SNOMED: 79927269 (2) Metastatic cancer ICD Codes: C79.9 - Secondary malignant neoplasm of unspecified site SNOMED: 696266489 Status: progressing Assessment/Plan: nausea no vomitting afebrile decrease abdominal pain Subjective ROS Limited/Unobtainable: Yes Allergies: Coded Allergies: No Known Allergies (Unverified , 11/29/19) Objective Last 24 Hour Vital Signs Date Time Temp Pulse Resp B/P (MAP) Pulse Ox O2 Delivery O2 Flow Rate FiO2 12/13/19 08:51 Room Air 12/13/19 08:04 134/64 12/13/19 07:58 97.6 65 18 134/64 (87) 97 12/13/19 05:09 97.9 12/13/19 00:00 97.9 65 18 133/66 (88) 98 12/12/19 21:00 Room Air 12/12/19 20:00 97.6 63 18 113/75 (88) 98 12/12/19 17:57 98.3 12/12/19 17:25 143/67 12/12/19 16:41 98.3 12/12/19 16:00 98.5 79 20 163/67 (99) 97 12/12/19 12:00 98.3 67 20 114/71 (85) 96 Intake and Output 12/12/19 12/13/19 19:00 07:00 Intake Total 650 ml Balance 650 ml Intake Oral 650 ml # Voids 2 Laboratory Tests 12/12/19 18:00: Troponin I 0.000 12/13/19 10:20: Urine Color [Pending], Urine Appearance [Pending], Urine pH [Pending], Urine Specific [place] [Pending], Urine Protein [Pending], Urine Glucose (UA) [Pending ], Urine Ketones [Pending], Urine Blood [Pending], Urine Nitrite [Pending], Urine Bilirubin [Pending], Urine Urobilinogen [Pending], Urine Leukocyte Esterase [Pending], Urine RBC [Pending], Urine WBC [Pending], Urine Squamous Epithelial Cells [Pending], Urine Bacteria [Pending] Height (Feet): 5 Height (Inches): 1.00 Weight (Pounds): 156 Respiratory/Chest: lungs clear Abdomen: soft Shirley Hassan MD Dec 13, 2019 11:09
[2019-12-13 11:12] LABS: APPEARANCE,URINE CLEAR; BILIRUBIN, URINE NEGATIVE (NEGATIVE); COLOR,URINE PALE YELLOW; GLUCOSE, URINE (UA) NEGATIVE (NEGATIVE); KETONES,URINE NEGATIVE (NEGATIVE); LEUKOCYTE ESTERASE ,URINE NEGATIVE (NEGATIVE); NITRITE,URINE NEGATIVE (NEGATIVE); PH,URINE 6.5 (4.5-8.0); PROTEIN,URINE NEGATIVE (NEGATIVE); UROBILINOGEN,URINE NORMAL MG/DL (0.0-1.0)
[2019-12-13] MEDS ORDERED: Simethicone 80mg tab ORAL PRN (11:15)
--- NOTE | 2019-12-13 11:29 | GI Progress Note ---
Assessment/Plan Problems: (1) Liver metastasis ICD Codes: C78.7 - Secondary malignant neoplasm of liver and intrahepatic bile duct SNOMED: 18605906 (2) Metastatic cancer ICD Codes: C79.9 - Secondary malignant neoplasm of unspecified site SNOMED: 470196150 (3) Weakness ICD Codes: R53.1 - Weakness SNOMED: 13546838 Status: unchanged Status Narrative Discussed with Dr. Green. Assessment/Plan s/p CT guided biopsy fu path fu oncology tumor markers GI procedures if needed The patient was seen and examined at bedside and all new and available data was reviewed in the patients chart. I agree with the above findings, impression and plan. (Patient seen earlier today. Signature stamp does not reflect patient encounter time.). - Luis Green MD Subjective Gastrointestinal/Abdominal: Reports: abdominal pain Objective Last 24 Hour Vital Signs Date Time Temp Pulse Resp B/P (MAP) Pulse Ox O2 Delivery O2 Flow Rate FiO2 12/13/19 11:03 97.6 12/13/19 08:51 Room Air 12/13/19 08:04 134/64 12/13/19 07:58 97.6 65 18 134/64 (87) 97 12/13/19 00:00 97.9 65 18 133/66 (88) 98 12/12/19 21:00 Room Air 12/12/19 20:00 97.6 63 18 113/75 (88) 98 12/12/19 17:57 98.3 12/12/19 17:25 143/67 12/12/19 16:41 98.3 12/12/19 16:00 98.5 79 20 163/67 (99) 97 12/12/19 12:00 98.3 67 20 114/71 (85) 96 Intake and Output 12/12/19 12/13/19 19:00 07:00 Intake Total 650 ml Balance 650 ml Intake Oral 650 ml # Voids 2 Laboratory Tests Test 12/12/19 18:00 12/13/19 10:20 Troponin I 0.000 ng/mL (0.000-0.056) Urine Color Pale yellow Urine Appearance Clear Urine pH 6.5 (4.5-8.0) Urine Specific [place] 1.010 (1.005-1.035) Urine Protein Negative (NEGATIVE) Urine Glucose (UA) Negative (NEGATIVE) Urine Ketones Negative (NEGATIVE) Urine Blood Negative (NEGATIVE) Urine Nitrite Negative (NEGATIVE) Urine Bilirubin Negative (NEGATIVE) Urine Urobilinogen Normal MG/DL (0.0-1.0) Urine Leukocyte Esterase Negative (NEGATIVE) Urine RBC 0-2 /HPF (0 - 2) Urine WBC 0-2 /HPF (0 - 2) Urine Squamous Epithelial Cells Occasional /LPF Urine Bacteria Occasional /HPF (NONE) Height (Feet): 5 Height (Inches): 1.00 Weight (Pounds): 156 General Appearance: WD/WN, no apparent distress, alert Cardiovascular: normal rate Respiratory/Chest: normal breath sounds, no respiratory distress Abdominal Exam: normal bowel sounds, non tender, soft Extremities: normal range of motion, non-tender Melony Mcclain NP Dec 13, 2019 11:29
[2019-12-13 12:00] VITALS: BP 136/57
[2019-12-13] MEDS ORDERED: D5 1/2NS 1000ml IV ONE (14:49)
--- NOTE | 2019-12-13 14:50 | NUR ---
NURSE NOTES: Patient received education regarding medications. Patient was also educated to call the MD for any changes such as severe abdominal pain, increasing abdominal distention, and fever. Patient received discharge packet and teaching instructions. Patient was assisted downstairs with staff, family member present. All belongings were sent with the patient and family. Skin was clean, dry, and intact. No IV Access. Patient verbalized understanding of teaching.
--- NOTE | 2019-12-13 16:45 | NUR ---
CASE MANAGEMENT: REVIEW 12/11/19 SI:METASTATIC CANCER . ABD PAIN . FAILURE TO THRIVE . OBSTRUCTION 97.5 67 20 155/71 95% ON RA H/H 11.6/33.3 PLT 110 ALP 359 IS:COZAAR PO BID NAPROXEN PO BID ULTRAM PO BID/PRN \: 3E MED SURG UNIT PLAN: CT GUIDED BIOPSY F/U WITH ONCOLOGY CASE MANAGEMENT: REVIEW 12/12/19 SI:METASTATIC CANCER . ABD PAIN . FAILURE TO THRIVE . 97.5 67 20 155/71 95% ON RA H/H 11.7/33.4 PLT 110 ALP 358 IS:COZAAR PO BID NAPROXEN PO BID ULTRAM PO BID/PRN IV D5@75ML/HR \: 3E MED SURG UNIT PLAN: CT GUIDED BIOPSY F/U WITH ONCOLOGY 2DECHO IN AM UR CX-PENDING
--- NOTE | 2019-12-13 17:26 | Hematology/Onc Progress Note ---
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 Lesion in the lungs are of less certain significance but could also represent small metastatic deposit. Etiology not definitely demonstrated 7 x 8 x 5.6 cm left lobe liver lesion, probably a large necrotic metastasis given the above findings, but demonstrates partial fluid attenuation and could represent a separate process such as a complex cyst or liver abscess --> her risk factor is smoking --> biopsy done on last admission shows likely pancreatic origin (is not lung or gi) --> will need pet scan as outpatient --> DISCUSSED thoroughly with son, and sister --> she is here for FULL workup to figure out primary, a new biopsy of lung was done on saturday 12/09 --> will see if requires endoscopy after above biopsy results, have dw Dr. Green # Thrombocytopenia - potential causes multifactorial, evaluate liver and viral etiologies to begin, also could be related to underlying medications patient has received. --> Hep panel and HIV both negative --> ct abd positive for liver lesion and hsm --> Peripheral smear ordered to evaluate for blasts /schistocytes --> abx and other meds have been reviewed --> ok for ppx if plt >50k w/ either heparin or lovenox --> plt trend: 117k-->134-->119 # Anemia of chronic disease due to underlying chronic medical issues, multifactorial v Gi bleed --> Anemia workup has been ordered, rule out gi bleed --> No evidence of hemolysis is noted, peripheral smear has been reviewed. --> Hgb goal >7. Transfuse prn. --> Epogen or iron at this time is not particularly indicated --> Medications have been reviewed --> hgb trend: 11.4-->12.9 --> low threshold for gi evaluation in case has occult + # Abdominal pain --> likely related to Metastasis # Liver metastasis # Weakness # Pain management # SW consult Appreciate consultation and milly RN Subjective Allergies: Coded Allergies: No Known Allergies (Unverified , 11/29/19) Subjective 12/11: no acute distress, s/p ct guided biop,today's labs pending, room air 12/12: awake and alert, no acute events, dc planning Objective Objective Last 24 Hour Vital Signs Date Time Temp Pulse Resp B/P (MAP) Pulse Ox O2 Delivery O2 Flow Rate FiO2 12/13/19 12:00 97.6 59 18 136/57 (83) 96 12/13/19 11:03 97.6 12/13/19 08:51 Room Air 12/13/19 08:04 134/64 12/13/19 07:58 97.6 65 18 134/64 (87) 97 12/13/19 00:00 97.9 65 18 133/66 (88) 98 12/12/19 21:00 Room Air 12/12/19 20:00 97.6 63 18 113/75 (88) 98 12/12/19 17:57 98.3 12/12/19 17:25 143/67 12/12/19 16:41 98.3 12/12/19 16:00 98.5 79 20 163/67 (99) 97 12/12/19 12:00 98.3 67 20 114/71 (85) 96 12/12/19 09:25 134/59 12/12/19 09:00 Room Air 12/12/19 08:00 98.5 64 20 134/57 (82) 98 12/12/19 00:00 98.3 58 20 121/51 (74) 98 12/11/19 21:00 Room Air 12/11/19 20:00 98.5 68 18 148/70 (96) 97 12/11/19 17:46 155/71 Intake and Output 12/12/19 12/13/19 19:00 07:00 Intake Total 650 ml Balance 650 ml Intake Oral 650 ml # Voids 2 Labs Test 12/11/19 06:15 12/12/19 07:53 12/12/19 18:00 12/13/19 10:20 White Blood Count 7.6 K/UL (4.8-10.8) 7.1 K/UL (4.8-10.8) Red Blood Count 3.61 M/UL (4.20-5.40) 3.65 M/UL (4.20-5.40) Hemoglobin 11.6 G/DL (12.0-16.0) 11.7 G/DL (12.0-16.0) Hematocrit 33.3 % (37.0-47.0) 33.4 % (37.0-47.0) Mean Corpuscular Volume 92 FL (80-99) 91 FL (80-99) Mean Corpuscular Hemoglobin 32.1 PG (27.0-31.0) 32.2 PG (27.0-31.0) Mean Corpuscular Hemoglobin Concent 34.8 G/DL (32.0-36.0) 35.2 G/DL (32.0-36.0) Red Cell Distribution Width 11.8 % (11.6-14.8) 11.9 % (11.6-14.8) Platelet Count 127 K/UL (150-450) 110 K/UL (150-450) Mean Platelet Volume 11.5 FL (6.5-10.1) 10.8 FL (6.5-10.1) Neutrophils (%) (Auto) 56.6 % (45.0-75.0) 60.2 % (45.0-75.0) Lymphocytes (%) (Auto) 30.6 % (20.0-45.0) 25.3 % (20.0-45.0) Monocytes (%) (Auto) 10.3 % (1.0-10.0) 11.3 % (1.0-10.0) Eosinophils (%) (Auto) 1.9 % (0.0-3.0) 2.3 % (0.0-3.0) Basophils (%) (Auto) 0.6 % (0.0-2.0) 0.9 % (0.0-2.0) Sodium Level 137 MMOL/L (136-145) 138 MMOL/L (136-145) Potassium Level 4.0 MMOL/L (3.5-5.1) 4.0 MMOL/L (3.5-5.1) Chloride Level 101 MMOL/L (98-107) 102 MMOL/L (98-107) Carbon Dioxide Level 28 MMOL/L (21-32) 28 MMOL/L (21-32) Anion Gap 8 mmol/L (5-15) 8 mmol/L (5-15) Blood Urea Nitrogen 12 mg/dL (7-18) 12 mg/dL (7-18) Creatinine 0.6 MG/DL (0.55-1.30) 0.7 MG/DL (0.55-1.30) Estimat Glomerular Filtration Rate > 60 mL/min (>60) > 60 mL/min (>60) Glucose Level 98 MG/DL (74-106) 104 MG/DL (74-106) Calcium Level 9.6 MG/DL (8.5-10.1) 9.6 MG/DL (8.5-10.1) Total Bilirubin 0.6 MG/DL (0.2-1.0) 0.6 MG/DL (0.2-1.0) Aspartate Amino Transf (AST/SGOT) 85 U/L (15-37) 90 U/L (15-37) Alanine Aminotransferase (ALT/SGPT) 53 U/L (12-78) 49 U/L (12-78) Alkaline Phosphatase 359 U/L (46-116) 358 U/L (46-116) Total Protein 6.7 G/DL (6.4-8.2) 6.7 G/DL (6.4-8.2) Albumin 2.5 G/DL (3.4-5.0) 2.5 G/DL (3.4-5.0) Globulin 4.2 g/dL 4.2 g/dL Albumin/Globulin Ratio 0.6 (1.0-2.7) 0.6 (1.0-2.7) Carcinoembryonic Antigen 1.6 ng/mL (0.0-4.7) Troponin I 0.000 ng/mL (0.000-0.056) 0.000 ng/mL (0.000-0.056) Urine Color Pale yellow Urine Appearance Clear Urine pH 6.5 (4.5-8.0) Urine Specific [place] 1.010 (1.005-1.035) Urine Protein Negative (NEGATIVE) Urine Glucose (UA) Negative (NEGATIVE) Urine Ketones Negative (NEGATIVE) Urine Blood Negative (NEGATIVE) Urine Nitrite Negative (NEGATIVE) Urine Bilirubin Negative (NEGATIVE) Urine Urobilinogen Normal MG/DL (0.0-1.0) Urine Leukocyte Esterase Negative (NEGATIVE) Urine RBC 0-2 /HPF (0 - 2) Urine WBC 0-2 /HPF (0 - 2) Urine Squamous Epithelial Cells Occasional /LPF Urine Bacteria Occasional /HPF (NONE) Height (Feet): 5 Height (Inches): 1.00 Weight (Pounds): 156 Objective Physical Exam: Vitals: reviewed General: NAD HEENT: nc, at Neck: supple Chest: clear breath sounds bilaterally Abdomen: soft, nontender, nd Extremities: no cce, normal range of motion Neuro: alert and oriented Eugene Truong MD Dec 13, 2019 17:26
--- NOTE | 2019-12-14 11:53 | Discharge Summary ---
Discharge Summary Discharge Summary _ DATE OF ADMISSION: 12/09/2019 DATE OF DISCHARGE: 12/13/2019 DISCHARGED BY: Dr. Aragon REASON FOR ADMISSION: 54 years old female with past medical history of hypertension, liver cancer, DNR/DNI status, presented to emergency department with abdominal distention for 3 days. Patient reported diffuse abdominal pain , but no fevers or chills. No dysuria . Upon evaluation vital signs were stable . Laboratory work-up revealed no leukocytosis ,stable hemoglobin ,hematocrit , platelet count 109. Stable electrolytes and renal parameters. Glucose 133. AST 101, ALT 63, alkaline phosphatase 349. Lipase 102. EKG revealed sinus rhythm , no acute ischemic changes . CT scan of the abdomen and pelvis revealed evidence of widespread metastatic neoplasm , involving the lungs, liver, mesentery, retroperitoneum and bones. Mild ascites. Patient admitted for further management CONSULTANTS: outside parts salesman Dr. Chavez GI specialist Dr. Green medical referral coordinator/oncologist Dr. Truong [facility] COURSE: Patient admitted to medical surgical floor. Oncologist seen the patient . Patient follows-up with this oncologist as outpatient. GI followed due to hematemesis and abdominal pain. Patient undergone CT-guided needle biopsy of the right fifth rib mass. Pathology report still pending at the time of this dictation. Per oncologist, patient came for work-up to figure out primary source of disseminated malignancy with multiple liver lesions, peripancreatic, lesser sac, and retroperitoneal necrotic lymphadenopathy, anterolateral expansile right fifth rib lesion. Lesion in the lungs were of less certain significance , but could also represent small metastatic deposit. Liver biopsy done on the previous admission, revealed likely pancreatic origin. Patient will need PET scan as outpatient. GI specialist seen and evaluated the patient. No GI procedure was planned at this time . Hematemesis stopped.. Hemoglobin and hematocrit remained stable, at baseline. Prior to discharge hemoglobin 11.7 , hematocrit 33.4. CEA and CA-19-9 within normal limits. GI specialist recommended GI procedure only if needed. Pain management was addressed. Supportive care provided. Patient clinically stabilized and was ready for discharge home. Outpatient follow-up with oncologist. Patient will need PET scan as outpatient. Follow-up with lung biopsy results . 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 DISCHARGE INSTRUCTIONS: Patient was discharged home. I have been assigned to dictate discharge summary for this account. I was not involved in the patient's management. Kalpana Ford NP Dec 14, 2019 11:53
== END 2019-12-13 14:50 | disposition home or self-care (01) | DRG 281 ==
LOC: EMR 14:00 → 3E 14:04 → EDBEDREQ 16:37 → 3E 18:22
PROC: 0PB13ZX Excision of 1 to 2 Ribs, Percutaneous Approach, Diagnostic (ICD-10-PCS; principal; 2019-12-10)
DX: C78.7 Secondary malignant neoplasm of liver and intrahepatic bile duct (principal); C79.51 Secondary malignant neoplasm of bone; C78.00 Secondary malignant neoplasm of unspecified lung; C77.8 Secondary and unspecified malignant neoplasm of lymph nodes of multiple regions; C25.9 Malignant neoplasm of pancreas, unspecified; K21.9 Gastro-esophageal reflux disease without esophagitis; Z66 Do not resuscitate; D69.6 Thrombocytopenia, unspecified; D63.8 Anemia in other chronic diseases classified elsewhere; I10 Essential (primary) hypertension; F17.200 Nicotine dependence, unspecified, uncomplicated; R18.8 Other ascites
CPT/HCPCS: 36415; 71045; 71260; 74177; 77012; 80053; 81001; 82378; 83690; 84484; 85025; 85610; 85730; 86850; 86900; 86901; 87086; 93005; 93306; 96361; 96374; 99285; J2250; J2405; J7030